=== PATIENT | female | born 1980 | race Caucasian/White ===

== ENCOUNTER 2019-08-13 14:56 | Emergency (ER) | payer SELFPAY ==
[2019-08-13 15:52] LABS: Absolute Lymphocytes (CBC) 1.8 K/uL (0.7-4.9); Basophils % 0.5 % (0-1.3); Hematocrit 37.6 % (36.0-45.0); Lymphocytes % 30.3 % (15.3-44.8); RBC Red Blood Cell Count 4.56 M/uL (3.86-4.86)
[2019-08-13] MEDS ORDERED: AZITHROMYCIN 250 MG TAB ONE (15:52)
[2019-08-13] MEDS ORDERED: CEFTRIAXONE 250 MG/VIAL ONE (15:52)
[2019-08-13] MEDS ORDERED: WATER FOR INJ,STERILE 10 ML ONE (15:53)
[2019-08-13 15:59] LABS: Urine Blood TRACE (NEG); Urine Glucose NEGATIVE (NEG); Urine Protein NEGATIVE (NEG); Urine Specific Gravity >1.030 (1.005-1.030)
[2019-08-13 16:10] LABS: Albumin 4.1 g/dL (3.4-5.0); Bilirubin Total 0.3 mg/dL (0.2-1.0); Potassium 3.9 mmol/L (3.5-5.1); Protein, Total 7.5 g/dL (6.4-8.2)
[2019-08-13 17:07] LABS: Urine Bacteria >50 /HPF (<20); Urine Culture Reflex Order REFLEXED; Urine RBC <5 /HPF (NONE SEEN)
--- NOTE | 2019-08-13 17:20 | EDPHYS ---
Physician Documentation [facility] Name: Krysten Gallegos Age: 38 yrs Sex: Female : 1980 Arrival Date: 08/13/2019 Time: 14:59 Bed 23 Private MD: ED Physician Abisai Champion HPI: 08/13 15:28 This 38 yrs old Female presents to ER via Ambulatory with complaints of ps1 Abdominal Pain. 15:28 patient states that she has a history of PID and previously treated years ago. She was ps1 recently treated for BV 2/2 vaginal discharge from outside clinic with flagyl. Now having suprapubic / right adenexal tenderness. No fever. Pain is intermittent. In [facility] for opioid rehab on naltrexone. Pain is moderate and point tender to palpation and rated as moderate. . 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 - Social history:: Smoking status: Patient uses tobacco products, smokes one-half pack cigarettes per day. - Ebola Screening: : No symptoms or risks identified at this time. ROS: 15:28 Constitutional: Negative for fever, chills, and weight loss, Eyes: Negative for injury, ps1 pain, redness, and discharge, Cardiovascular: Negative for chest pain, palpitations, and edema, Respiratory: Negative for shortness of breath, cough, wheezing, and pleuritic chest pain, Abdomen/GI: Negative for abdominal pain, nausea, vomiting, diarrhea, and constipation, MS/Extremity: Negative for injury and deformity, Skin: Negative for injury, rash, and discoloration. 15:28 : Positive for suprapubic / adnexal pain. Exam: 15:28 Constitutional: This is a well developed, well nourished patient who is awake, alert, ps1 and in no acute distress. Head/Face: Normocephalic, atraumatic. Eyes: Pupils equal round and reactive to light, extra-ocular motions intact. Lids and lashes normal. Conjunctiva and sclera are non-icteric and not injected. Cardiovascular: Regular rate and rhythm. No gallops, murmurs, or rubs. Normal PMI, no JVD. No pulse deficits. Respiratory: Lungs have equal breath sounds bilaterally, clear to auscultation and percussion. No rales, rhonchi or wheezes noted. No increased work of breathing, no retractions or nasal flaring. Skin: Warm, dry with normal turgor. Normal color with no rashes, no lesions, and no evidence of cellulitis. MS/ Extremity: Pulses equal, no cyanosis. Neurovascular intact. Full, normal range of motion. Neuro: Awake and alert, GCS 15, oriented to person, place, time, and situation. Cranial nerves II-XII grossly intact. Sensory grossly intact. 15:28 Abdomen/GI: Inspection: abdomen appears normal, Bowel sounds: normal, Palpation: moderate abdominal tenderness, in the suprapubic area and right lower quadrant. Vital Signs: 15:03 BP 148 / 110; Pulse 101; Resp 16; Temp 98.4; Pulse Ox 100% on R/A; Weight 58.97 kg; la1 Height 5 ft. 1 in. (154.94 cm); 17:26 BP 121 / 85; Pulse 77; Resp 18; Pulse Ox 99% on R/A; aj1 15:03 Body Mass Index 24.56 (58.97 kg, 154.94 cm) la1 MDM: 15:32 Patient medically screened. ps1 17:20 Data reviewed: vital signs, nurses notes, lab test result(s), and as a result, I will ps1 discharge patient. Counseling: I had a detailed discussion with the patient and/or guardian regarding: the historical points, exam findings, and any diagnostic results supporting the discharge/admit diagnosis, lab results, radiology results, the need for outpatient follow up, to return to the emergency department if symptoms worsen or persist or if there are any questions or concerns that arise at home. 08/13 15:27 Order name: Wet Prep; Complete Time: 16:42 ps1 08/13 15:27 Order name: GC (GONORR/CHLAMYDIA) Probe ps1 08/13 15:27 Order name: CBC with Diff; Complete Time: 16:31 ps1 08/13 15:27 Order name: CMP; Complete Time: 16:31 ps1 08/13 15:55 Order name: Urine Dipstick--Ancillary (enter results); Complete Time: 16:31 bd 08/13 15:55 Order name: Urine --Ancillary (enter results); Complete Time: 16:31 bd 08/13 15:27 Order name: Urine Dipstick-Ancillary (obtain specimen); Complete Time: 16:15 ps1 08/13 15:27 Order name: Urine Test (obtain specimen); Complete Time: 16:15 ps1 08/13 16:43 Order name: Urine Microscopic Only; Complete Time: 17:19 ps1 08/13 17:08 Order name: Urine Culture EDW[facility] Administered Medications: 16:11 Drug: Rocephin (cefTRIAXone) 250 mg Route: IM; Site: right gluteus; aj1 16:11 Drug: AZITHromycin 1 grams Route: PO; aj1 Disposition: 08/13/19 17:19 Discharged to Home. Impression: Acute cystitis without hematuria. - Condition is Stable. - Discharge Instructions: Urinary Tract Infection, Adult. - Prescriptions for Keflex 500 mg Oral Capsule - take 1 capsule by ORAL route every 8 hours for 10 days; 30 capsule. Pyridium 200 mg Oral Tablet - take 1 tablet by ORAL route every 8 hours for 3 days; 9 tablet. - Medication Reconciliation Form, Thank You Letter, Antibiotic Education, Prescription Opioid Use form. - Follow up: Private Physician; When: 48 Hours; Reason: Further diagnostic work-up, Recheck today's complaints, Continuance of care, Re-evaluation by your physician. Follow up: Emergency Department; When: As needed; Reason: Worsening of condition. - Problem is new. - Symptoms are unchanged. Signatures: Dispatcher [employer] EDW[facility] Beckie Polk RN RN aj1 Dawood Hairston RN RN la1 Abisai Champion MD MD ps1 Corrections: (The following items were deleted from the chart) 17:32 17:19 08/13/2019 17:19 Discharged to Home. Impression: Acute cystitis without aj1 hematuria. Condition is Stable. Forms are Medication Reconciliation Form, Thank You Letter, Antibiotic Education, Prescription Opioid Use. Follow up: Private Physician; When: 48 Hours; Reason: Further diagnostic work-up, Recheck today's complaints, Continuance of care, Re-evaluation by your physician. Follow up: Emergency Department; When: As needed; Reason: Worsening of condition. Problem is new. Symptoms are unchanged. ps1
--- NOTE | 2019-08-13 17:20 | ER ---
Nurse's Notes [facility] Name: Krysten Gallegos Age: 38 yrs Sex: Female : 1980 Arrival Date: 08/13/2019 Time: 14:59 Bed 23 Private MD: Diagnosis: Acute cystitis without hematuria Presentation: 08/13 15:04 Presenting complaint: Patient states: I feel like I might have a UTI but I took la1 macrobid and flagyl like 2 weeks ago but things are not getting better. Transition of care: patient was not received from another setting of care. Onset of symptoms was August 13, 2019. Risk Assessment: Do you want to hurt yourself or someone else? Patient reports no desire to harm self or others. Initial Sepsis Screen: Does the patient meet any 2 criteria? No. Patient's initial sepsis screen is negative. Does the patient have a suspected source of infection? No. Patient's initial sepsis screen is negative. Care prior to arrival: None. 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 - Social history:: Smoking status: Patient uses tobacco products, smokes one-half pack cigarettes per day. - Ebola Screening: : No symptoms or risks identified at this time. Screenin:20 Abuse screen: Denies threats or abuse. Denies injuries from another. Nutritional aj1 screening: No deficits noted. Tuberculosis screening: No symptoms or risk factors identified. Assessment: 15:20 General: Appears in no apparent distress. uncomfortable, Behavior is calm, cooperative, aj1 appropriate for age. Pain: Complains of pain in suprapubic area. Neuro: Level of Consciousness is awake, alert, obeys commands, Oriented to person, place, time, situation. Cardiovascular: Patient's skin is warm and dry. Respiratory: Airway is patent Respiratory effort is even, unlabored, Respiratory pattern is regular, symmetrical. GI: Abdomen is flat, non-distended, Bowel sounds present X 4 quads. Abd is soft X 4 quads Abdomen is tender to palpation in right lower quadrant and suprapubic area. : Denies burning with urination. EENT: No signs and/or symptoms were reported regarding the EENT system. Derm: No signs and/or symptoms reported regarding the dermatologic system. Skin is pink, warm \T\ dry. normal. Musculoskeletal: No signs and/or symptoms reported regarding the musculoskeletal system. Circulation, motion, and sensation intact. 16:20 Reassessment: Patient appears in no apparent distress at this time. No changes from aj1 previously documented assessment. Patient and/or family updated on plan of care and expected duration. Pain level reassessed. Patient is alert, oriented x 3, equal unlabored respirations, skin warm/dry/pink. 17:17 Reassessment: Patient appears in no apparent distress at this time. No changes from aj1 previously documented assessment. Patient and/or family updated on plan of care and expected duration. Pain level reassessed. Patient is alert, oriented x 3, equal unlabored respirations, skin warm/dry/pink. Vital Signs: 15:03 BP 148 / 110; Pulse 101; Resp 16; Temp 98.4; Pulse Ox 100% on R/A; Weight 58.97 kg; la1 Height 5 ft. 1 in. (154.94 cm); 17:26 BP 121 / 85; Pulse 77; Resp 18; Pulse Ox 99% on R/A; aj1 15:03 Body Mass Index 24.56 (58.97 kg, 154.94 cm) la1 ED Course: 14:59 Patient arrived in ED. mr 15:03 Arm band placed on left wrist. la1 15:04 Abisai Champion MD is Attending Physician. ps1 15:05 Triage completed. la1 15:16 Beckie Polk, KRISTOPHER is Primary Nurse. aj1 15:20 Patient has correct armband on for positive identification. Bed in low position. Call aj1 light in reach. Side rails up X 1. 15:20 No provider procedures requiring assistance completed. aj1 15:47 Urine collected: clean catch specimen, clear. Inserted saline lock: 22 gauge in right tm3 antecubital area, using aseptic technique. 17:31 IV discontinued, intact, bleeding controlled, No redness/swelling at site. Pressure aj1 dressing applied. Administered Medications: 16:11 Drug: Rocephin (cefTRIAXone) 250 mg Route: IM; Site: right gluteus; aj1 16:11 Drug: AZITHromycin 1 grams Route: PO; aj1 Outcome: 17:19 Discharge ordered by . ps1 17:32 Discharged to home ambulatory. aj1 17:32 Condition: good 17:32 Discharge instructions given to patient, Instructed on discharge instructions, follow up and referral plans. medication usage, Demonstrated understanding of instructions, follow-up care, medications, Prescriptions given X 2. 17:32 Patient left the ED. aj1 Signatures: Beckie Polk, RN RN aj1 Duran Urbina Mary mr Dawood Hairston RN RN la1 Abisai Champion MD MD ps1
[2019-08-13 17:51] VITALS: TEMP 98.4
[2019-08-13 17:52] VITALS: BP 121/85; O2SAT 99
== END 2019-08-13 17:32 | disposition home or self-care (01) ==
LOC: ER 14:56
DX: N30.00 Acute cystitis without hematuria (principal); I10 Essential (primary) hypertension; F17.210 Nicotine dependence, cigarettes, uncomplicated; Z88.2 Allergy status to sulfonamides
CPT/HCPCS: 36415; 80053; 81003; 81015; 81025; 85025; 87086; 87088; 87210; 87490; 87590; 96372; 99284; J0696

== ENCOUNTER 2019-12-15 21:01 | Emergency (ER) | payer SELFPAY ==
--- NOTE | 2019-12-15 21:19 | EDPHYS ---
Physician Documentation [facility] Name: Krysten Gallegos Age: 39 yrs Sex: Female : 1980 Arrival Date: 12/15/2019 Time: 21:03 Bed 5 Private MD: ED Physician Matty Dominguez HPI: 12/14 21:15 This 39 yrs old Female presents to ER via Ambulatory with complaints of Arm rn Pain. 21:15 The patient or guardian complains of pain, tingling. The complaints affect the right rn hand, left hand. Onset: The symptoms/episode began/occurred yesterday. Modifying factors: The symptoms are alleviated by nothing. the symptoms are aggravated by nothing. Severity of symptoms: At their worst the symptoms were mild, in the emergency department the symptoms are unchanged. The patient has not experienced similar symptoms in the past. Reports began yesterday with pain to both hands, radiates to forearms, no injury, no rash, does not hurt to touch, no fever. Reports aching in hands especially. 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 Not diabetic. 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 . 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 - Social history:: Smoking status: Patient reports the use of cigarette tobacco products, smokes one-half pack cigarettes per day, Patient/guardian denies using alcohol, street drugs. - Family history:: not pertinent. - Hospitalizations: : No recent hospitalization is reported. ROS: 21:15 Constitutional: Negative for fever, chills, and weight loss, Eyes: Negative for injury, rn pain, redness, and discharge, Neck: Negative for injury, pain, and swelling, Cardiovascular: Negative for chest pain, palpitations, and edema, Respiratory: Negative for shortness of breath, cough, wheezing, and pleuritic chest pain, Abdomen/GI: Negative for abdominal pain, nausea, vomiting, diarrhea, and constipation, MS/Extremity: Negative for injury and deformity, Skin: Negative for injury, rash, and discoloration, Neuro: Negative for headache, weakness, and seizure. Exam: 21:15 Constitutional: This is a well developed, well nourished patient who is awake, alert, rn psychomotor agitation Head/Face: Normocephalic, atraumatic. Cardiovascular: Regular rate and rhythm. No pulse deficits. Skin: Warm, dry with normal turgor. Normal color with no rashes, no lesions, and no evidence of cellulitis. MS/ Extremity: Pulses equal, no cyanosis. Neurovascular intact. Full, normal range of motion. Equal circumference. Neuro: Awake and alert, GCS 15, oriented to person, place, time, and situation. Cranial nerves II-XII grossly intact. Motor strength 5/5 in all extremities. Sensory grossly intact. Cerebellar exam normal. Normal gait. Vital Signs: 21:06 BP 159 / 103; Pulse 71; Resp 18; Temp 98.6; Pulse Ox 95% ; Weight 63.5 kg; Height 5 ft. ll1 4 in. (162.56 cm); Pain 5/10; 21:06 Body Mass Index 24.03 (63.50 kg, 162.56 cm) ll1 MDM: 21:10 Patient medically screened. rn 21:15 Differential diagnosis: carpal tunnel, radiculopathy, peripheral neuropathy. Data rn reviewed: vital signs, nurses notes, and as a result, I will discharge patient. Counseling: I had a detailed discussion with the patient and/or guardian regarding: the historical points, exam findings, and any diagnostic results supporting the discharge/admit diagnosis, the need for outpatient follow up, to return to the emergency department if symptoms worsen or persist or if there are any questions or concerns that arise at home. Special discussion: I discussed with the patient/guardian in detail that at this point there is no indication for admission to the hospital. It is understood, however, that if the symptoms persist or worsen the patient needs to return immediately for re-evaluation. Based on the history and exam findings, there is no indication for further emergent testing or inpatient evaluation. I discussed with the patient/guardian the need to see the primary care provider for further evaluation of the symptoms. Administered Medications: :23 Drug: Decadron 10 mg Route: IM; Site: right deltoid; jd3 21:34 Follow up: Response: No adverse reaction ea : Drug: TORadol - Ketorolac 15 mg Route: IM; Site: left deltoid; jd3 21:34 Follow up: Response: No adverse reaction ea Disposition: 12/15/19 21:19 Discharged to Home. Impression: Peripheral neuropathy. - Condition is Stable. - Discharge Instructions: Peripheral Neuropathy. - Prescriptions for Diclofenac Sodium 75 mg Oral Tablet, Delayed Release (E.C.) - take 1 tablet by ORAL route 2 times per day; 20 tablet. Medrol (Silver) 4 mg Oral Tablets, Dose Pack - take 1 tablet by ORAL route as directed - follow package instructions; 1 packet. - Medication Reconciliation Form, Thank You Letter, Antibiotic Education, Prescription Opioid Use form. - Follow up: Private Physician; When: As needed; Reason: Recheck today's complaints, Re-evaluation by your physician. - Problem is new. - Symptoms have improved. Signatures: Matty Dominguez MD MD rn Antunez, Elena RN Gee Fernandez ea RN KRISTOPHER jd3 Tommie Hernandez RN KRISTOPHER ll1 Corrections: (The following items were deleted from the chart) 21:36 21:19 12/15/2019 21:19 Discharged to Home. Impression: Peripheral neuropathy. Condition ea is Stable. Forms are Medication Reconciliation Form, Thank You Letter, Antibiotic Education, Prescription Opioid Use. Follow up: Private Physician; When: As needed; Reason: Recheck today's complaints, Re-evaluation by your physician. Problem is new. Symptoms have improved. rn
--- NOTE | 2019-12-15 21:19 | ER ---
Nurse's Notes [facility] Name: Krysten Gallegos Age: 39 yrs Sex: Female : 1980 Arrival Date: 12/15/2019 Time: 21:03 Bed 5 Private MD: Diagnosis: Peripheral neuropathy Presentation: 12/14 21:06 Chief complaint: Patient states: Severe right arm/hand pain since yesterday. Both arms ll1 hurt bad now. Hard to activity aide objects. Coronavirus screen: Patient denies fever greater than 100.4F, cough, shortness of breath, or difficulty breathing. Proceed with normal triage process. Ebola Screen: Patient denies travel to an Ebola-affected area in the 21 days before illness onset. Initial Sepsis Screen: Does the patient meet any 2 criteria? No. Patient's initial sepsis screen is negative. Does the patient have a suspected source of infection? No. Patient's initial sepsis screen is negative. Risk Assessment: Do you want to hurt yourself or someone else? Patient reports no desire to harm self or others. 21:06 Method Of Arrival: Ambulatory 1 21:06 Acuity: SAMY 4 ll1 21:15 Onset of symptoms was December 14, 2019. 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 - Social history:: Smoking status: Patient reports the use of cigarette tobacco products, smokes one-half pack cigarettes per day, Patient/guardian denies using alcohol, street drugs. - Family history:: not pertinent. - Hospitalizations: : No recent hospitalization is reported. Screenin:10 Abuse screen: Denies threats or abuse. Nutritional screening: No deficits noted. jd3 Tuberculosis screening: No symptoms or risk factors identified. Fall Risk Ambulatory Aid- None/Bed Rest/Nurse Assist (0 pts). Gait- Normal/Bed Rest/Wheelchair (0 pts) Mental Status- Oriented to own ability (0 pts). Total Quintero Fall Scale indicates No Risk (0-24 pts). Assessment: 21:14 General: Appears in no apparent distress. uncomfortable, Behavior is cooperative, jd3 appropriate for age, anxious, restless. Pain: Complains of pain in right hand, left hand, right arm and left arm Quality of pain is described as aching, shooting, tingling. Neuro: Level of Consciousness is awake, alert, obeys commands, Oriented to person, place, time, situation. Cardiovascular: Denies chest pain, Capillary refill < 3 seconds Patient's skin is warm and dry. Respiratory: Airway is patent Respiratory effort is even, unlabored, Respiratory pattern is regular, symmetrical, Denies cough, shortness of breath. GI: No signs and/or symptoms were reported involving the gastrointestinal system. : No signs and/or symptoms were reported regarding the genitourinary system. EENT: No signs and/or symptoms were reported regarding the EENT system. Derm: Skin is intact, Skin is dry, Skin is normal, Skin temperature is warm. Musculoskeletal: Circulation, motion, and sensation intact. Range of motion: intact in all extremities. 21:34 Reassessment: Patient appears in no apparent distress at this time. Patient and/or jd3 family updated on plan of care and expected duration. Pain level reassessed. Patient is alert, oriented x 3, equal unlabored respirations, skin warm/dry/pink. reported understanding of discharge instructions, even and steady gait upon discharge. Vital Signs: 21:06 BP 159 / 103; Pulse 71; Resp 18; Temp 98.6; Pulse Ox 95% ; Weight 63.5 kg; Height 5 ft. ll1 4 in. (162.56 cm); Pain 5/10; 21:06 Body Mass Index 24.03 (63.50 kg, 162.56 cm) ll1 ED Course: 21:03 Patient arrived in ED. ag3 21:07 Triage completed. ll1 21:08 Arm band placed on Patient placed in an exam room, on a stretcher. ll1 21:09 Gee Agrawal, KRISTOPHER is Primary Nurse. jd3 21:09 Patient has correct armband on for positive identification. Bed in low position. Call jd3 light in reach. Side rails up X 1. Pulse ox on. NIBP on. 21:10 Matty Dominguez MD is Attending Physician. rn 21:33 No provider procedures requiring assistance completed. Patient did not have IV access ea during this emergency room visit. 21:34 No provider procedures requiring assistance completed. Patient did not have IV access jd3 during this emergency room visit. Administered Medications: 21:23 Drug: Decadron 10 mg Route: IM; Site: right deltoid; jd3 21:34 Follow up: Response: No adverse reaction ea 21:23 Drug: TORadol - Ketorolac 15 mg Route: IM; Site: left deltoid; jd3 21:34 Follow up: Response: No adverse reaction ea Outcome: 21:19 Discharge ordered by . rn 21:34 Discharged to home ambulatory. ea 21:34 Condition: stable 21:34 Discharge instructions given to patient, Instructed on discharge instructions, follow up and referral plans. medication usage, Demonstrated understanding of instructions, follow-up care, medications, Prescriptions given X 2. 21:36 Patient left the ED. ea Signatures: Matty Dominguez MD MD rn Antunez, Elena RN RN Gee Agosto RN RN jd3 Radha Orozco Lynsay RN RN ll1
[2019-12-15] MEDS ORDERED: dexAMETHasone 10 MG/ML VIAL ONE (21:23)
[2019-12-15] MEDS ORDERED: KETOROLAC 30 MG/ML INJ ONE (21:23)
== END 2019-12-15 21:36 | disposition home or self-care (01) ==
LOC: ER 21:01
DX: G62.9 Polyneuropathy, unspecified (principal); M79.641 Pain in right hand; I10 Essential (primary) hypertension; F17.210 Nicotine dependence, cigarettes, uncomplicated; Z88.2 Allergy status to sulfonamides
CPT/HCPCS: 96372; 99283; J1100

== ENCOUNTER 2020-06-02 23:11 | Inpatient (IN) | payer SELFPAY ==
[2020-06-02] MEDS ORDERED: FLUORESCEIN SODIUM 1 MG/WRAP ONE ×2 (23:44→23:53)
[2020-06-02] MEDS ORDERED: TETRACAINE HCL 0.5% 4ML OPTH ONE ×2 (23:44→23:53)
[2020-06-03 00:05] LABS: Absolute Lymphocytes (CBC) 1.2 K/uL (0.7-4.9); Basophils % 0.4 % (0-1.3); Hematocrit 36.5 % (36.0-45.0); Lymphocytes % 15.5 % (15.3-44.8); MPV 9.1 fL (7.6-11.3); RBC Red Blood Cell Count 4.55 M/uL (3.86-4.86)
[2020-06-03 00:11] LABS: Protime INR 0.96
--- NOTE | 2020-06-03 00:12 | EDPHYS ---
Physician Documentation [facility] Name: Krysten Gallegos Age: 39 yrs Sex: Female : 1980 Arrival Date: 06/02/2020 Time: 23:12 Bed 19 Private MD: ED Physician Song Liz HPI: 06/02 23:34 This 39 yrs old Female presents to ER via Ambulatory with complaints of Eye jmm Pain. 23:34 The patient is experiencing double vision. Onset: The symptoms/episode began/occurred 3 jmm week(s) ago. Aggravated by nothing. Alleviated by covering eye. This is a 39 year old female with a history of htn that presents to the ED with complaints of right eye visual changes which worsened this morning upon awakening. Patient states she has experienced eye sensitivity for the past 3 weeks but when she awoke this morning she developed double vision which was alleviated by holding the right eye closed. Patient complains of pain to both temples. . 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 - Social history:: Smoking status: Reported history of juuling and/or vaping. Patient/guardian denies using alcohol, street drugs, IV drugs. ROS: 23:34 Constitutional: Negative for fever, chills, and weight loss, Cardiovascular: Negative jmm for chest pain, palpitations, and edema, Respiratory: Negative for shortness of breath, cough, wheezing, and pleuritic chest pain. 23:34 Back: Negative for injury and pain, MS/Extremity: Negative for injury and deformity, Skin: Negative for injury, rash, and discoloration, Neuro: Negative for headache, weakness, numbness, tingling, and seizure, Psych: Negative for depression, anxiety, suicide ideation, homicidal ideation, and hallucinations, Allergy/Immunology: Negative for hives, rash, and allergies. 23:34 Eyes: Positive for double vision. 23:34 Neuro: Positive for visual changes. 23:34 All other systems are negative. Exam: 23:34 Constitutional: This is a well developed, well nourished patient who is awake, alert, jmm and in no acute distress. Head/Face: atraumatic. 23:34 ENT: Moist Mucus Membranes Neck: Trachea midline, Supple Chest/axilla: Normal chest wall appearance and motion. Cardiovascular: Regular rate and rhythm. No edema appreciated Respiratory: Normal respirations, no respiratory distress appreciated Abdomen/GI: Non distended, soft Back: Normal ROM MS/ Extremity: Moves all extremities, no obvious deformities appreciated, no edema noted to the lower extremities 23:34 Eyes: Extraocular movements: intact throughout, Visual chamorro: homonymous hemianopia noted. 23:34 Neuro: Orientation: is normal, Mentation: is normal, Memory: is normal. 23:34 Psych: Behavior/mood is pleasant, cooperative. 23:50 ECG was reviewed by the Attending Physician. [facility] Vital Signs: 23:26 BP 175 / 115; Pulse 105; Resp 18; Pulse Ox 100% on R/A; Weight 58.97 kg; Height 5 ft. 2 mg2 in. (157.48 cm); Pain 0/10; 23:33 Temp 98; mg2 06/03 00:00 BP 126 / 116; Pulse 106; Resp 16; Pulse Ox 100% on R/A; Pain 0/10; vc 00:46 BP 130 / 83; Pulse 98; Resp 16; Pulse Ox 100% ; Pain 0/10; vc 01:25 BP 143 / 89; Pulse 94; Resp 15; Pulse Ox 100% on R/A; Pain 0/10; vc 06/02 23:26 Body Mass Index 23.78 (58.97 kg, 157.48 cm) mg2 Visual Acuity: 06/02 23:46 Left Eye Visual acuity 20/40, ; Right Eye Visual acuity 20/70, ; Both Eyes Visual acuity 20/70; Without Lenses; 23:47 Left Eye Visual acuity 20/40, ; Right Eye Visual acuity 20/70, ; Both Eyes Visual [facility] acuity 20/70; Without Lenses; MDM: 23:32 Patient medically screened. [facility] 06/03 00:10 Data reviewed: vital signs, nurses notes. Counseling: I had a detailed discussion with [facility] the patient and/or guardian regarding: the historical points, exam findings, and any diagnostic results supporting the discharge/admit diagnosis, radiology results, the need for further work-up and treatment in the hospital. ED course: I discussed the patient with Dawood Hairston whom accepted the patient to Dr. Dominguez's service. . 06/02 23:28 Order name: Basic Metabolic Panel; Complete Time: 00:53 [facility] 06/02 23:28 Order name: CBC with Diff; Complete Time: 00:08 [facility] 06/02 23:28 Order name: LFT's; Complete Time: 00:53 [facility] 06/02 23:28 Order name: Magnesium; Complete Time: 00:53 [facility] 06/02 23:28 Order name: NT PRO-BNP; Complete Time: 00:53 [facility] 06/02 23:28 Order name: PT-INR; Complete Time: 00:15 [facility] 06/02 23:28 Order name: Troponin (emerg Dept Use Only); Complete Time: 00:53 [facility] 06/02 23:28 Order name: EKG; Complete Time: 23:29 [facility] 06/02 23:28 Order name: CT Head Brain wo Cont [facility] 06/02 23:29 Order name: ESR; Complete Time: 00:53 [facility] 06/02 23:29 Order name: CRP; Complete Time: 00:53 [facility] 06/02 23:42 Order name: UDS [facility] 06/03 00:18 Order name: COVID-19 [facility] 06/02 23:22 Order name: Visual Acuity; Complete Time: 23:47 [facility] 06/02 23:22 Order name: Eye Tray; Complete Time: 00:09 [facility] 06/02 23:22 Order name: Fluoresene Opth strip; Complete Time: 00:09 [facility] 06/02 23:28 Order name: Cardiac monitoring; Complete Time: 00:09 [facility] 06/02 23:28 Order name: EKG - Nurse/Tech; Complete Time: 23:47 [facility] 06/02 23:28 Order name: IV Saline Lock; Complete Time: 23:47 [facility] 06/02 23:28 Order name: Labs collected and sent; Complete Time: 23:47 [facility] 06/02 23:28 Order name: O2 Per Protocol; Complete Time: 23:47 [facility] 06/02 23:28 Order name: O2 Sat Monitoring; Complete Time: 23:47 jmm EC/15 23:50 Rate is 102 beats/min. Rhythm is regular. QRS [place] is Normal. [place] interval is normal. jmm QRS interval is normal. QT interval is normal. No Q waves. T waves are Normal. No ST changes noted. Reviewed by me. Administered Medications: 23:47 Drug: Tetracaine Drops 0.5 % 1 drops Route: Ophthalmic; Site: right eye; vc Disposition: 06/03 02:15 Co-signature as Attending Physician, Song Liz MD. [email or web address] Disposition: 06/03/20 00:12 Hospitalization ordered by Suhail Dominguez for Observation. Preliminary diagnosis is Diplopia. - Bed requested for Telemetry/MedSurg (observation). - Status is Observation. vc - Condition is Stable. - Problem is new. - Symptoms are unchanged. Signatures: Dispatcher [employer] EDMS Charlotte Romero RN RN mw Mickail, Joel, PA PA [facility] Dawood Hairston, JERAD-C SALES HOST-Cla1 Jaguar Mattson RN RN mg2 Renetta Reyes RN RN vc Song Liz MD MD [email or web address] Corrections: (The following items were deleted from the chart) 00:16 00:10 ED course: I discussed the patient with Dawood Hairston whom accepted the patient to [facility] Dr. Farmer service. . [facility] 00:16 00:12 Hospitalization Ordered by Teddy Farmer DO for Observation. Preliminary [facility] diagnosis is Diplopia. Bed requested for Telemetry/MedSurg (observation). Status is Observation. Condition is Stable. Problem is new. Symptoms are unchanged. [facility] 01:14 00:16 06/03/2020 00:12 Hospitalization Ordered by Suhail Dominguez MD for Observation. Preliminary diagnosis is Diplopia. Bed requested for Telemetry/MedSurg (observation). Status is Observation. Condition is Stable. Problem is new. Symptoms are unchanged. [facility] 02:01 01:14 06/03/2020 00:12 Hospitalization Ordered by Suhail Dominguez MD for Observation. Preliminary diagnosis is Diplopia. Bed requested for Telemetry/MedSurg (observation). Status is Observation. Condition is Stable. Problem is new. Symptoms are unchanged.
--- NOTE | 2020-06-03 00:12 | ER ---
Nurse's Notes [facility] Name: Krysten Gallegos Age: 39 yrs Sex: Female : 1980 Arrival Date: 06/02/2020 Time: 23:12 Bed 19 Private MD: Diagnosis: Diplopia Presentation: 06/02 23:22 Chief complaint: Patient states: i was seen by my eye doctor today because elana been mg2 having double vision for the last 2 weeks and said it's just nerve related. denies pain now. Coronavirus screen: At this time, the client does not indicate any symptoms associated with coronavirus-19. Ebola Screen: No symptoms or risks identified at this time. Mechanism of Injury: No Mechanism of Injury. The patient denies any loss of vision. Initial Sepsis Screen: Does the patient meet any 2 criteria? No. Patient's initial sepsis screen is negative. Does the patient have a suspected source of infection? No. Patient's initial sepsis screen is negative. Risk Assessment: Do you want to hurt yourself or someone else? Patient reports no desire to harm self or others. Onset of symptoms was May 2020. 23:22 Method Of Arrival: Ambulatory mg2 23:26 Acuity: SAMY 2 mg2 Triage Assessment: 23:27 General: Appears in no apparent distress. comfortable, Behavior is calm, cooperative. mg2 Pain: Denies pain. EENT: Reports double vision in the right eye. Neuro: Level of Consciousness is awake, alert, obeys commands, Oriented to person, place, time, situation. Cardiovascular: Capillary refill < 3 seconds Patient's skin is warm and dry. Respiratory: Airway is patent Respiratory effort is even, unlabored, Respiratory pattern is regular, symmetrical. GI: No signs and/or symptoms were reported involving the gastrointestinal system. : No signs and/or symptoms were reported regarding the genitourinary system. Derm: Skin is intact, is healthy with good turgor, Skin is pink, warm \T\ dry. normal. Musculoskeletal: Circulation, motion, and sensation intact. Capillary refill < 3 seconds. 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 - Social history:: Smoking status: Reported history of juuling and/or vaping. Patient/guardian denies using alcohol, street drugs, IV drugs. Screenin:15 VAN Screening: Arm Drift: Patient shows no arm weakness. Patient is VAN negative. vc Visual Disturbance: Patient reports double vision. Provider notified of +VAN scoring. 23:28 Abuse screen: Denies threats or abuse. Denies injuries from another. Nutritional mg2 screening: No deficits noted. Tuberculosis screening: No symptoms or risk factors identified. Fall Risk IV access (20 points). Assessment: 23:28 General: see triage assessment. mg2 06/03 00:10 Reassessment:. General: Appears in no apparent distress. uncomfortable, Behavior is vc cooperative, anxious. Pain: Denies pain. Neuro: Level of Consciousness is awake, alert, obeys commands, Oriented to person, place, time, situation, Appropriate for age. Neuro: Reports diplopia, photophobia. Cardiovascular: Capillary refill < 3 seconds Patient's skin is warm and dry. Respiratory: Airway is patent Respiratory effort is even, unlabored, Respiratory pattern is regular, symmetrical. GI: Abdomen is non-distended. EENT: Eyes are tearing on right inner canthus Sclera/Cornea are clear in outer aspect of conjuctiva of right eye and inner aspect of conjuctiva of right eye. EENT: Reports blurred vision photophobia walking into things the last couple of weeks.. Derm: Wound noted Other: wounds in various stages of healing noted to face, cindy arms, cindy legs, and abdomen. Musculoskeletal: Circulation, motion, and sensation intact. Range of motion: intact in all extremities. 00:55 Reassessment: Patient and/or family updated on plan of care and expected duration. Pain vc level reassessed. Patient is alert, oriented x 3, equal unlabored respirations, skin warm/dry/pink. Patient states symptoms have not improved. Vital Signs: 06/02 23:26 BP 175 / 115; Pulse 105; Resp 18; Pulse Ox 100% on R/A; Weight 58.97 kg; Height 5 ft. 2 mg2 in. (157.48 cm); Pain 0/10; 23:33 Temp 98; mg2 06/03 00:00 BP 126 / 116; Pulse 106; Resp 16; Pulse Ox 100% on R/A; Pain 0/10; vc 00:46 BP 130 / 83; Pulse 98; Resp 16; Pulse Ox 100% ; Pain 0/10; vc 01:25 BP 143 / 89; Pulse 94; Resp 15; Pulse Ox 100% on R/A; Pain 0/10; vc 06/02 23:26 Body Mass Index 23.78 (58.97 kg, 157.48 cm) mg2 Visual Acuity: 06/02 23:46 Left Eye Visual acuity 20/40, ; Right Eye Visual acuity 20/70, ; Both Eyes Visual vc acuity 20/70; Without Lenses; 23:47 Left Eye Visual acuity 20/40, ; Right Eye Visual acuity 20/70, ; Both Eyes Visual [facility] acuity 20/70; Without Lenses; ED Course: 23:12 Patient arrived in ED. cl3 23:18 Renetta Reyes RN is Primary Nurse. vc 23:22 Shayan Elaine PA is PHCP. jmm 23:22 Song Liz MD is Attending Physician. jmm 23:26 Arm band placed on. mg2 23:27 Triage completed. mg2 23:28 Patient has correct armband on for positive identification. mg2 23:28 No provider procedures requiring assistance completed. mg2 23:30 monitoring manager on. Pulse ox on. NIBP on. vc 23:35 Inserted saline lock: 20 gauge in right antecubital area, using aseptic technique. vc Blood collected. 23:50 CT Head Brain wo Cont In Process Unspecified. EDMS 06/03 00:11 Teddy Farmer DO is Hospitalizing Provider. jmm 00:16 Suhail Dominguez MD is Hospitalizing Provider. jmm 01:39 Patient admitted, IV remains in place. vc Administered Medications: 06/02 23:47 Drug: Tetracaine Drops 0.5 % 1 drops Route: Ophthalmic; Site: right eye; vc Outcome: 06/03 00:12 Decision to Hospitalize by Provider. jmm 01:39 Admitted to Med/surg accompanied by tech, via wheelchair, room 221, with chart, Report vc called to KRISTOPHER Grover 01:39 Condition: good 01:39 Instructed on the need for admit. 02:01 Patient left the ED. vc Signatures: Dispatcher [employer] EDMS Mickail, YULIYA Downey Michele, RN RN mg2 Ariela Hernandez cl3 Renetta Reyes RN RN vc Corrections: (The following items were deleted from the chart) 06/02 23:27 23:26 Acuity: SAMY 3 mg2 mg2
[2020-06-03 00:40] LABS: ALT/SGPT 17 U/L (12-78); AST/SGOT 13 U/L (15-37); Albumin 3.7 g/dL (3.4-5.0); Alkaline Phosphatase 111 U/L (45-117); BUN Blood Urea Nitrogen 12 mg/dL (7-18); Bicarbonate 27 mmol/L (21-32); Bilirubin Direct 0.1 mg/dL (0-0.2); Bilirubin Total 0.5 mg/dL (0.2-1.0); Glucose Level 88 mg/dL (74-106); Magnesium 1.9 mg/dL (1.8-2.4); NT PRO-BNP 49 pg/mL (<125); Potassium 3.8 mmol/L (3.5-5.1); Protein, Total 7.8 g/dL (6.4-8.2); Sodium Level 138 mmol/L (136-145); Troponin (Emerg Dept Use Only) < 0.02 ng/mL (0.0-0.045)
--- NOTE | 2020-06-03 01:02 | P.HP ---
Certification for Inpatient Patient admitted to: Inpatient With expected LOS: <2 Midnights Patient will require the following post-hospital care: None Practitioner: I am a practitioner with admitting privileges, knowledge of patient current condition, hospital course, and medical plan of care. Services: Services provided to patient in accordance with Admission requirements found in Title 42 Section 412.3 of the Code of Federal Regulations <Dawood Hairston - Last Filed: 06/03/20 00:57> Patient History Date of Service: 06/03/20 Primary Care Provider: Madhu brandt Reason for admission: Hypertensive emergency History of Present Illness: 39-year-old female with history of hypertension and heroin abuse presents emergency department for visual disturbances. Patient reports that over the course of the last 2 weeks she has had intermittent difficulties with vision quitting sometimes seeing double vision. Today patient reports she woke up this morning and noticed that she was having double vision, primarily affecting her right eye. 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 Initially patient's blood pressure was 175/115. Patient was evaluated in the emergency department with noncontrast CT of the head and cardiac workup which were unremarkable. During physical exam patient was noted to have homonymous hemianopia with loss of left visual chamorro in both eyes. Patient reports that this began this morning when she woke up as far she can tell. ED provider wishes to admit patient for further evaluation and management. When I saw the patient in the emergency department she was awake, alert, oriented x4. Patient was covering her right eye to read a book and she states this helped with the diplopia. Patient denies any other medical history aside from hypertension which she has to take HCTZ for but she discontinued on her own. Patient also reports that she used to abuse heroin but has not used in the past 8 months. Patient will be admitted for further evaluation and management. - Past Medical/Surgical History Diabetic: No -: Hypertension -: Heroin abuse -: none Psychosocial/ Personal History: Patient lives with her and is currently unemployed - Family History Family History: Reviewed- Non-Contributory - Social History Smoking Status: Current every day smoker Alcohol use: Yes CD- Drugs: Yes Caffeine use: Yes Place of Residence: Home <Dawood Hairston - Last Filed: 06/03/20 00:57> Date of Service: 06/03/20 <Suhail Dominguez - Last Filed: 06/03/20 18:54> Review of Systems 10-point ROS is otherwise unremarkable Eyes: Vision Change, As per HPI <Dawood Hairston - Last Filed: 06/03/20 00:57> Physical Examination - Physical Exam General: Alert, In no apparent distress, Oriented x3 HEENT: Atraumatic, Normocephalic, PERRLA, Mucous membr. moist/pink, EOMI Neck: Supple, 2+ carotid pulse no bruit Respiratory: Clear to auscultation bilaterally, Normal air movement Cardiovascular: No edema, Regular rate/rhythm, Normal S1 S2 Capillary refill: <2 Seconds Gastrointestinal: Normal bowel sounds Musculoskeletal: No swelling, No contractures, No erythema Integumentary: No significant lesion, No tenderness/swelling, No erythema Neurological: Normal speech, Normal strength at 5/5 x4 extr, Normal tone, Sensation intact, Normal affect Lymphatics: No axilla or inguinal lymphadenopathy - Studies Laboratory Data (last 24 hrs) 06/02/20 23:38: PT 11.3, INR 0.96 06/02/20 23:38: WBC 8.0, Hgb 12.0, Hct 36.5, Plt Count 177 06/02/20 23:38: Sodium 138, Potassium 3.8, BUN 12, Creatinine 0.77, Glucose 88, Magnesium 1.9, Total Bilirubin 0.5, AST 13 L, ALT 17, Alkaline Phosphatase 111 <Dawood Hairston - Last Filed: 06/03/20 00:57> - Studies Laboratory Data (last 24 hrs) 06/02/20 23:38: PT 11.3, INR 0.96 06/02/20 23:38: WBC 8.0, Hgb 12.0, Hct 36.5, Plt Count 177 06/02/20 23:38: Sodium 138, Potassium 3.8, BUN 12, Creatinine 0.77, Glucose 88, Magnesium 1.9, Total Bilirubin 0.5, AST 13 L, ALT 17, Alkaline Phosphatase 111 <Suhail Dominguez - Last Filed: 06/03/20 18:54> Assessment and Plan - Plan Assessment Hypertensive emergency Homonymous hemianopia and diplopia Plan Hypertensive emergency: Blood pressure has come down nicely in the emergency department. Will attempt to decreased blood pressure gradually. Will continue to monitor patient's blood pressure closely and monitor patient on telemetry. Will start patient on metoprolol b.i.d. with parameters. Will obtain thyroid panel with morning labs as well as echocardiogram. DVT prophylaxis with Lovenox 40 mg subcutaneous once daily. Homonymous hemianopia and diplopia: Neurology has been consulted, will obtain MRI stroke protocol in the morning. Continue with daily aspirin and folic acid at this time. Appreciate further input from neurology. Discharge Plan: Home Plan to discharge in: 48 Hours - Advance Directives Does patient have a Living Will: No Does patient have a Durable POA for Healthcare: No - Code Status/Comfort Care Code Status Assessed: Yes (Patient is full code) Critical Care: No Time Spent Managing Pts Care (In Minutes): 55 <Dawood Hairston - Last Filed: 06/03/20 00:57> Physician Review Additional Text: Plan of care discussed with Dawood Hairston, and I agree with the management plan as noted above. <Suhail Dominguez - Last Filed: 06/03/20 18:54>
[2020-06-03] MEDS ORDERED: ACETAMINOPHEN 500 MG TAB PO PRN (01:44)
[2020-06-03] MEDS ORDERED: ONDANSETRON 4 MG/2 ML VIAL IV PRN (01:44)
[2020-06-03 02:14] VITALS: O2SAT 100
[2020-06-03 02:40] VITALS: BMI 26.9
[2020-06-03] MEDS: METOPROLOL TAR 25 MG TAB PO SCH ×2 (05:36→17:53)
--- NOTE | 2020-06-03 05:50 | EKG ---
Test Date: 2020-06-02 Test Time: 23:48:02 [employer]: JHON MEASUREMENT RESULTS: Intervals: Rate: 102 [place]: 158 QRSD: 82 QT: 344 QTc: 448 [place]: P: 31 [place]: 158 QRS: 9 T: 12 INTERPRETIVE STATEMENTS: Sinus tachycardia Otherwise normal ECG No previous ECG available for comparison Electronically Signed On 06-03-20 05:49:59 CDT by Terry Givens
[2020-06-03 07:52] LABS: Barbiturates NEGATIVE (NEGATIVE); Benzodiazepines NEGATIVE (NEGATIVE); Cocaine NEGATIVE (NEGATIVE); METHAMPHETAM NEGATIVE (NEGATIVE); Methadone NEGATIVE (NEGATIVE); Opiates NEGATIVE (NEGATIVE); Phencyclidine NEGATIVE (NEGATIVE); THC Cannibis NEGATIVE (NEGATIVE)
[2020-06-03] MEDS ORDERED: ENOXAPARIN 40 MG/0.4 ML SQ SCH (09:00)
[2020-06-03] MEDS ORDERED: ASPIRIN EC 81 MG TAB PO SCH (09:00)
[2020-06-03] MEDS ORDERED: FOLIC ACID 1 MG TABLET PO SCH (09:00)
[2020-06-03] MEDS ORDERED: POTASSIUM CL SA 10 MEQ TAB PO ONE (09:00)
--- NOTE | 2020-06-03 14:31 | ECHO ---
HEIGHT: 5 ft 2 in WEIGHT: 147 lb 0 oz DATE OF STUDY: 06/03/[address]: Dawood Hairston NP 2-DIMENSIONAL: YES M.MODE: YES DOPPLER: YES COLOR FLOW: YES TDS: NO PORTABLE: NO DEFINITY: NO BUBBLE STUDY: NO DIAGNOSIS: HYPERTENSION EMERGENCY CARDIAC HISTORY: CATHERIZATION: NO SURGERY: NO PROSTHETIC VALVE: NO PACEMAKER: NO MEASUREMENTS (cm) DIASTOLIC (NORMALS) SYSTOLIC (NORMALS) IVSd 0.9 (0.6-1.2) LA Diam 2.8 (1.9-4.0) LVEF 68% LVIDd 4.6 (3.5-5.7) LVIDs 2.9 (2.0-3.5) %FS 38% LVPWd 1.0 (0.6-1.2) Ao Diam 3.3 (2.0-3.7) 2 DIMENSIONAL ASSESSMENT: RIGHT ATRIUM: NORMAL LEFT ATRIUM: NORMAL RIGHT VENTRICLE: NORMAL LEFT VENTRICLE: NORMAL TRICUSPID VALVE: NORMAL MITRAL VALVE: NORMAL PULMONIC VALVE: NORMAL AORTIC VALVE: NORMAL PERICARDIAL EFFUSION: NONE AORTIC ROOT: NORMAL LEFT VENTRICULAR WALL MOTION: NORMAL. DOPPLER/COLOR FLOW: NORMAL. COMMENTS: NORMAL 2D ECHO WITH DOPPLER. NO WALL MOTION ABNORMALITY. NO EFFUSION. TECHNOLOGIST: SONAL KIRK
--- NOTE | 2020-06-03 14:32 | RAD REPORT ---
EXAM DESCRIPTION: Head Brain Wo Cont CLINICAL HISTORY: 39 years Female diplopia, blurred vision COMPARISON: None TECHNIQUE: Contiguous axial images of the brain were obtained without the administration of intraven ous contrast.This exam was performed according to our departmental dose-optimization program which in cludes use of Automated Exposure Control, adjustment of the mA and/or kV according to patient size an d/or use of iterative reconstruction technique. DLP: 889 mGy*cm FINDINGS: Brain: No acute intracranial hemorrhage. No extra-axial collection. No mass effect or ruma iation. Ventricles: Within normal limits in size. Globes and orbits: No acute abnormality. Bones: No acute osseous finding Paranasal sinuses: Chronic right maxillary sinus disease. Frontal sinuses are hypoplastic. Mastoid air cells: Well pneumatized. Soft tissues: Within normal limits IMPRESSION: No acute intracranial abnormality. Chronic right maxillary sinus disease. Electronically signed by: David Tam DO 06/03/2020 12:06 AM CDT Due to temporary technical issues with the PACS/Fluency reporting system, reports are being signed by the in house radiologist without review as a courtesy to ensure prompt reporting. The interpreting r adiologist is fully responsible for the content of the report.
[2020-06-03 16:08] VITALS: BP 134/86; TEMP 97.9
--- NOTE | 2020-06-03 17:35 | RAD REPORT ---
EXAM DESCRIPTION: MRI - Brain W/Wo Cont - 06/03/2020 5:22 pm CLINICAL HISTORY: Double vision COMPARISON: June 02, [address] TECHNIQUE: Axial, sagittal, and coronal magnetic images of the brain were obtained. Fourteen cc Mult iHance administered intravenously FINDINGS: Mild to moderate signal within periventricular, deep and subcortical white matter probably ischemic changes secondary to small vessel disease The ventricles are normal in caliber. Diffusion-weighted/ ADC mapping sequences do not demonstrate evidence of an acute infarction. No abnormal enhancement within the brain is seen. An extra-axial fluid collection is not noted. Right maxillary sinus is opacified compatible with chronic sinusitis IMPRESSION: No acute abnormality displayed
--- NOTE | 2020-06-03 17:41 | RAD REPORT ---
EXAM DESCRIPTION: MRI - MRA Head Wo Cont - 06/03/2020 5:08 pm CLINICAL HISTORY: Double vision COMPARISON: None. TECHNIQUE: Magnetic resonance angiogram was performed. 3D MIPS reconstruction performed FINDINGS: The anterior cerebral, middle cerebral, posterior cerebral, distal internal carotid and ba silar arteries do not demonstrate a significant stenosis. The basilar tip is bulbous measuring 4 x 3 millimeters IMPRESSION: Multi is basilar tip measuring 4 x 3 millimeters
--- NOTE | 2020-06-03 17:50 | RAD REPORT ---
EXAM DESCRIPTION: MRI - MRA Neck W/Wo Cont - 06/03/2020 5:23 pm CLINICAL HISTORY: Double vision COMPARISON: None. TECHNIQUE: Magnetic resonance angiogram of the neck was performed. 19 cc MultiHance was administered intravenously. 3D MIPS reconstruction performed FINDINGS: The common carotid, internal carotid and external carotid arteries do not demonstrate a si gnificant stenosis. An aneurysm is not seen. The right vertebral artery is dominant. No abnormality of the vertebral arteries demonstrated IMPRESSION: Unremarkable MRA neck NASCET criteria used. Mild 0-49% stenosis Moderate 50-69% stenosis Severe 70-99% stenosis
== END 2020-06-03 19:55 | disposition home or self-care (01) | DRG 305 ==
LOC: ER 23:11 → ERHOLD 06-03 01:02 → 2ND 06-03 01:37
PROVIDERS: ADMIT Hospitalist; ATTEND Hospitalist
DX: I16.1 Hypertensive emergency (principal); H53.2 Diplopia; I10 Essential (primary) hypertension; F17.200 Nicotine dependence, unspecified, uncomplicated; H53.462 Homonymous bilateral field defects, left side; Z88.1 Allergy status to other antibiotic agents; Z79.899 Other long term (current) drug therapy
CPT/HCPCS: 36415; 70450; 70544; 70549; 70553; 80048; 80076; 80307; 83735; 83880; 84484; 85025; 85610; 85652; 86140; 93005; 93306; 97110; 97112; 97161; 99285; A9577; J1650; U0002

== ENCOUNTER 2020-06-09 16:56 | Emergency (ER) | payer SELFPAY ==
[2020-06-09 18:09] LABS: Absolute Lymphocytes (CBC) 2.6 K/uL (0.7-4.9); Basophils % 0.6 % (0-1.3); Hematocrit 34.2 % (36.0-45.0); Lymphocytes % 37.3 % (15.3-44.8); MPV 8.4 fL (7.6-11.3); RBC Red Blood Cell Count 4.23 M/uL (3.86-4.86)
[2020-06-09 18:34] LABS: Protime INR 0.98
[2020-06-09 18:45] LABS: BUN Blood Urea Nitrogen 15 mg/dL (7-18); Bicarbonate 30 mmol/L (21-32); Glucose Level 94 mg/dL (74-106); Potassium 3.7 mmol/L (3.5-5.1); Sodium Level 141 mmol/L (136-145)
--- NOTE | 2020-06-09 18:55 | RAD REPORT ---
EXAM DESCRIPTION: CT - Head Brain Wo Cont - 06/09/2020 6:38 pm CLINICAL HISTORY: diplopia, sent for aneurysm eval Headache, drowsiness COMPARISON: Head angio dated 06/09/2020; Head Brain Wo Cont dated 06/02/2020; MRA Head Wo Cont dated ; Brain W/Wo Cont dated 06/03/2020; MRA Neck W/Wo Cont dated 06/03/2020 TECHNIQUE: All CT scans are performed using dose optimization technique as appropriate and may inclu de automated exposure control or mA/KV adjustment according to patient size. FINDINGS: No intracranial hemorrhage, hydrocephalus or extra-axial fluid collection.No areas of brai n edema or evidence of midline shift. Chronic right maxillary sinusitis. The paranasal sinuses and mastoids are otherwise clear. The calvar ium is intact. IMPRESSION: No acute intracranial abnormality.
--- NOTE | 2020-06-09 18:58 | RAD REPORT ---
EXAM DESCRIPTION: CT - Head angio - 06/09/2020 6:39 pm CLINICAL HISTORY: diplopia, sent for aneurysm eval COMPARISON: Head Brain Wo Cont dated 06/02/2020; Brain W/Wo Cont dated 06/03/2020; MRA Head Wo Cont da benny 06/03/2020 TECHNIQUE: CT angiography of the head was performed with MIPs. All CT scans are performed using dose optimization technique as appropriate and may include automated exposure control or mA/KV adjustment according to patient size. FINDINGS: 4 mm fullness in the basilar tip region is again seen suggestive of a small aneurysm. No f low-limiting stenosis or vascular malformation identified. Antegrade flow seen in both vertebral arteries. The right vertebral artery is dominant. The visualized dural venous sinuses are patent. IMPRESSION: 4 mm area of fullness in the basilar tip region is unchanged since 06/03/2020 MRA study. Elsewhere, no significant flow abnormality of the [place] is identified.
--- NOTE | 2020-06-09 19:07 | ER ---
Nurse's Notes [facility] Name: Krysten Gallegos Age: 39 yrs Sex: Female : 1980 Arrival Date: 06/09/2020 Time: 16:56 Bed 16 Private MD: Diagnosis: Diplopia;Headache Presentation: 06/09 17:21 Chief complaint: Patient states: double vision since last night, called Dr. Roach em told to come to the ER, hx of aneurysm and wanted to make sure it isn't bigger, denies N/V or headache. Coronavirus screen: Client denies travel out of the [place] in the last 14 days. Ebola Screen: Patient negative for fever greater than or equal to 101.5 degrees Fahrenheit, and additional compatible Ebola Virus Disease symptoms Patient denies exposure to infectious person. Patient denies travel to an Ebola-affected area in the 21 days before illness onset. No symptoms or risks identified at this time. Initial Sepsis Screen: Does the patient meet any 2 criteria? No. Patient's initial sepsis screen is negative. Does the patient have a suspected source of infection? No. Patient's initial sepsis screen is negative. Risk Assessment: Do you want to hurt yourself or someone else? Patient reports no desire to harm self or others. Onset of symptoms was June 08, 2020. 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 - Social history:: Smoking status: Reported history of juuling and/or vaping. - Family history:: not pertinent. - Hospitalizations: : The patient was recently seen at [facility]. Screenin:40 Abuse screen: Denies threats or abuse. Denies injuries from another. Nutritional hb screening: No deficits noted. Tuberculosis screening: No symptoms or risk factors identified. Fall Risk None identified. Vital Signs: 17:21 BP 127 / 92; Pulse 83; Resp 18; Temp 98.2; Pulse Ox 99% on R/A; Weight 63.5 kg; Height em 5 ft. 2 in. (157.48 cm); Pain 0/10; 17:21 Body Mass Index 25.61 (63.50 kg, 157.48 cm) ED Course: 16:56 Patient arrived in ED. ag5 17:13 Triage completed. em 17:25 Arm band placed on. em 17:30 Matty Dominguez MD is Attending Physician. rn 17:31 Tommie Hernandez, RN is Primary Nurse. ll1 18:32 Patient has correct armband on for positive identification. Placed in gown. Bed in low hb position. Call light in reach. Side rails up X 1. 18:38 CT Head Brain wo Cont In Process Unspecified. EDMS 18:39 CT Head Angio In Process Unspecified. EDMS 19:05 Connor Roach MD is Referral Physician. rn 19:20 No provider procedures requiring assistance completed. IV discontinued, intact, hb bleeding controlled, No redness/swelling at site. Administered Medications: No medications were administered Outcome: 19:06 Discharge ordered by MD. rn 19:20 Discharged to home ambulatory. hb 19:20 Condition: stable 19:20 Discharge instructions given to patient, Instructed on discharge instructions, follow up and referral plans. medication usage, Demonstrated understanding of instructions, follow-up care, medications. 19:22 Patient left the ED. hb Signatures: Dispatcher [employer] Max Higgins RN KRISTOPHER Matty Dominguez MD MD rn Baxter, Heather, RN RN Zari Tipton ag5 Tommie Hernandez, RN RN ll1 Corrections: (The following items were deleted from the chart) 17:15 17:11 Chief complaint: Patient states: had a kidney transplant 1 week ago at [facility], reports generalized fatigue and N/V denies diarrhea, low grade temp. em 17:15 17:11 Coronavirus screen: Client denies travel out of the [place] in the last 14 days[facility] 17:15 17:11 Ebola Screen: Patient negative for fever greater than or equal to 101.5 degrees em Fahrenheit, and additional compatible Ebola Virus Disease symptoms Patient denies exposure to infectious person. Patient denies travel to an Ebola-affected area in the 21 days before illness onset. No symptoms or risks identified at this time. em 17:15 17:11 Initial Sepsis Screen: Does the patient meet any 2 criteria? No. Patient's em initial sepsis screen is negative. Does the patient have a suspected source of infection? No. Patient's initial sepsis screen is negative. em 17:11 Risk Assessment: Do you want to hurt yourself or someone else? Patient reports no em desire to harm self or others. em 17:11 Onset of symptoms was June 09, 2020 em em 17:11 Method Of Arrival: Wheelchair em em 17:11 BP 116 / 70; Pulse 83bpm; Resp 18bpm; Pulse Ox 99% RA; Temp 100.9F Oral; 90.72 em kg; Height 5 ft. 7 in.; BMI: 31.3; Pain 10/10; em 17:11 Acuity: SAMY 3 em em
--- NOTE | 2020-06-09 19:07 | EDPHYS ---
Physician Documentation [facility] Name: Krysten Gallegos Age: 39 yrs Sex: Female : 1980 Arrival Date: 06/09/2020 Time: 16:56 Bed 16 Private MD: ED Physician Matty Dominguez HPI: 06/09 18:39 This 39 yrs old Female presents to ER via Ambulatory with complaints of rn Blurred Vision, double vision, headache. 18:39 Onset: The symptoms/episode began/occurred 1 week(s) ago. Duration: the symptoms are rn episodic. Aggravated by nothing. Alleviated by covering eye. Severity of symptoms: At their worst the symptoms were moderate in the emergency department the symptoms are unchanged. The patient has experienced similar episodes in the past. Reports admitted here 1 week ago for double vision, told had "aneurysm" and told to f/u with Dr. Burrows. Reports intermittent symptoms, never went away totally, woke up yesterday with worse headache and double vision again, called Dr. Burrows's office, told to come in for eval, didn't come in until today. No trauma/fever/vomiting/AMS.. 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 - Social history:: Smoking status: Reported history of juuling and/or vaping. - Family history:: not pertinent. - Hospitalizations: : The patient was recently seen at [facility]. ROS: 18:39 Constitutional: Negative for fever, chills, and weight loss, Eyes: + double vision rn pediatric icu: Negative for chest pain, palpitations, and edema, Respiratory: Negative for shortness of breath, cough, wheezing, and pleuritic chest pain, Abdomen/GI: Negative for abdominal pain, nausea, vomiting, diarrhea, and constipation, MS/Extremity: Negative for injury and deformity, Skin: Negative for injury, rash, and discoloration, Neuro: + headache, negative for weakness/numbness Exam: 18:39 Constitutional: This is a well developed, well nourished patient who is awake, alert, rn and in no acute distress. Sitting upright shielding eyes from light. Head/Face: Normocephalic, atraumatic. Eyes: Pupils equal round and reactive to light, extra-ocular motions intact. No nystagmus. Neck: No cervical lymphadenopathy. Supple, full range of motion without nuchal rigidity, or vertebral point tenderness. No Meningismus. Neuro: Awake and alert, GCS 15, oriented to person, place, time, and situation. Cranial nerves II-XII grossly intact. Motor strength 5/5 in all extremities. Sensory grossly intact. Cerebellar exam normal. Vital Signs: 17:21 BP 127 / 92; Pulse 83; Resp 18; Temp 98.2; Pulse Ox 99% on R/A; Weight 63.5 kg; Height em 5 ft. 2 in. (157.48 cm); Pain 0/10; 17:21 Body Mass Index 25.61 (63.50 kg, 157.48 cm) em MDM: 17:31 Patient medically screened. rn 19:01 Differential diagnosis: headache, complicated headache migraine. Data reviewed: vital rn signs, nurses notes, radiologic studies, CT scan, and as a result, I will discharge patient. Counseling: I had a detailed discussion with the patient and/or guardian regarding: the historical points, exam findings, and any diagnostic results supporting the discharge/admit diagnosis, radiology results, the need for outpatient follow up, to return to the emergency department if symptoms worsen or persist or if there are any questions or concerns that arise at home. Special discussion: I discussed with the patient/guardian in detail that at this point there is no indication for admission to the hospital. It is understood, however, that if the symptoms persist or worsen the patient needs to return immediately for re-evaluation. Based on the history and exam findings, there is no indication for further emergent testing or inpatient evaluation. I discussed with the patient/guardian the need to see the neurologist for further evaluation of the symptoms. ED course: NO gross changes on ct head or angio. Persistent diplopia, possible migraine vs complicated migraine, has f/u scheduled with Dr. burrows, has been evaluated by ophtho. . 06/09 17:43 Order name: CBC with Diff; Complete Time: 18:39 rn 06/09 17:43 Order name: Basic Metabolic Panel; Complete Time: 19:01 rn 06/09 17:43 Order name: CT Head Brain wo Cont; Complete Time: 19: rn 06/09 17:43 Order name: CT Head Angio; Complete Time: 19:07 rn 06/09 17:43 Order name: Protime (+inr); Complete Time: : rn 06/09 17:43 Order name: Ptt, Activated; Complete Time: 19: rn 06/09 17:43 Order name: IV Start; Complete Time: 18:22 rn Administered Medications: No medications were administered Disposition: 06/09/20 19:06 Discharged to Home. Impression: Diplopia, Headache. - Condition is Stable. - Discharge Instructions: Diplopia, General Headache Without Cause, Migraine Headache. - Medication Reconciliation Form, Thank You Letter, Antibiotic Education, Prescription Opioid Use form. - Follow up: Connor Burrows MD; When: As needed; Reason: Recheck today's complaints, Re-evaluation by your physician. - Problem is new. - Symptoms have improved. Signatures: Dispatcher [employer] EDMax Whatley RN Matty Baires MD MD rn Baxter, Heather, RN RN hb Corrections: (The following items were deleted from the chart) 18:42 18:39 Constitutional: Negative for fever, chills, and weight loss, Eyes: + double rn vision Cardiovascular: Negative for chest pain, palpitations, and edema, Respiratory: Negative for shortness of breath, cough, wheezing, and pleuritic chest pain, Abdomen/GI: Negative for abdominal pain, nausea, vomiting, diarrhea, and constipation, MS/Extremity: Negative for injury and deformity, Skin: Negative for injury, rash, and discoloration, Neuro: + headache, negative for weakness/numbness rn 19:22 19:06 06/09/2020 19:06 Discharged to Home. Impression: Diplopia; Headache. Condition is hb Stable. Forms are Medication Reconciliation Form, Thank You Letter, Antibiotic Education, Prescription Opioid Use. Follow up: Connor Burrows; When: As needed; Reason: Recheck today's complaints, Re-evaluation by your physician. Problem is new. Symptoms have improved. rn
[2020-06-09 19:48] VITALS: BP 127/92; TEMP 98.2; O2SAT 99
== END 2020-06-09 19:22 | disposition home or self-care (01) ==
LOC: ER 16:56
DX: R51 Headache (principal); I10 Essential (primary) hypertension; Z88.2 Allergy status to sulfonamides; Z87.891 Personal history of nicotine dependence
CPT/HCPCS: 36415; 70450; 70496; 80048; 85025; 85610; 85730; 99283; Q9967

== ENCOUNTER 2020-08-31 23:53 | Emergency (ER) | payer SELFPAY ==
--- NOTE | 2020-09-01 03:00 | ER ---
Nurse's Notes [facility] Name: Krysten Gallegos Age: 39 yrs Sex: Female : 1980 Arrival Date: 08/31/2020 Time: 23:55 Bed 4 Private MD: Diagnosis: Hypertension;Person with feared health complaint in whom no diagnosis is made Presentation: 09/01 00:03 Chief complaint: Patient states: i have history of aneurysm before and my doctor mg2 advised me to monitor my BP- should be diastolic less than a 100 mmHg. denies any sx. Coronavirus screen: Client denies travel out of the [place] in the last 14 days. At this time, the client does not indicate any symptoms associated with coronavirus-19. Ebola Screen: No symptoms or risks identified at this time. Initial Sepsis Screen: Does the patient meet any 2 criteria? No. Patient's initial sepsis screen is negative. Does the patient have a suspected source of infection? No. Patient's initial sepsis screen is negative. Risk Assessment: Do you want to hurt yourself or someone else? Patient reports no desire to harm self or others. Onset of symptoms was August 31, 2020. 00:03 Method Of Arrival: Ambulatory mg2 00:03 Acuity: SAMY 4 mg2 Historical: - Allergies: 00:05 Sulfa (Sulfonamide Antibiotics); mg2 - Home Meds: 00:05 citalopram oral [Active]; mg2 - PMHx: 00:05 Aneurysm; Hypertension; mg2 - PSHx: 00:05 None; mg2 - Immunization history:: Flu vaccine is not up to date. - Social history:: Smoking status: Reported history of juuling and/or vaping. Patient/guardian denies using alcohol, street drugs, IV drugs. - Family history:: not pertinent. - Hospitalizations: : No recent hospitalization is reported. Screenin:03 Abuse screen: Denies threats or abuse. Nutritional screening: No deficits noted. jb4 Tuberculosis screening: No symptoms or risk factors identified. Fall Risk None identified. Assessment: 00:03 General: Appears in no apparent distress. comfortable, Behavior is calm, cooperative, jb4 appropriate for age. Pain: Denies pain. Neuro: Level of Consciousness is awake, alert, obeys commands, Oriented to person, place, time, situation. Cardiovascular: Patient's skin is warm and dry. Respiratory: Airway is patent Respiratory effort is even, unlabored, Respiratory pattern is regular, symmetrical. GI: No signs and/or symptoms were reported involving the gastrointestinal system. : No signs and/or symptoms were reported regarding the genitourinary system. EENT: No signs and/or symptoms were reported regarding the EENT system. Derm: Skin is intact, Skin is pink, warm \T\ dry. Musculoskeletal: Circulation, motion, and sensation intact. Range of motion: intact in all extremities. 00:31 Reassessment: Patient appears in no apparent distress at this time. Patient and/or jb4 family updated on plan of care and expected duration. Pain level reassessed. Patient is alert, oriented x 3, equal unlabored respirations, skin warm/dry/pink. Pt verbalized understanding of d/c and follow up instructions. Pt ambulated out of ED with steady gait. Vital Signs: 00:03 BP 136 / 99; Pulse 100; Resp 18; Temp 98.6; Pulse Ox 100% on R/A; Weight 67.59 kg; mg2 Height 5 ft. 2 in. (157.48 cm); Pain 0/10; 00:09 BP 115 / 91; mg2 00:03 Body Mass Index 27.25 (67.59 kg, 157.48 cm) mg2 ED Course: 08/31 23:55 Patient arrived in ED. cl3 23:57 Seth Hay, RN is Primary Nurse. jb4 23:57 Matty Dominguez MD is Attending Physician. rn 09/01 00:03 Patient has correct armband on for positive identification. Bed in low position. Call jb4 light in reach. Side rails up X 1. Pulse ox on. NIBP on. 00:05 Triage completed. mg2 00:05 Arm band placed on. mg2 00:31 No provider procedures requiring assistance completed. Patient did not have IV access jb4 during this emergency room visit. Administered Medications: No medications were administered Outcome: 00:09 Discharge ordered by . rn 00:31 Discharged to home ambulatory, with family. jb4 00:31 Condition: stable 00:31 Discharge instructions given to patient, family, Instructed on discharge instructions, follow up and referral plans. Demonstrated understanding of instructions, follow-up care. 00:32 Patient left the ED. jb4 Signatures: Matty Dominguez MD MD rn Bryson, James, RN RN jb4 Jaguar Mattson, RN RN mg2 David, Ariela cl3
--- NOTE | 2020-09-01 03:00 | EDPHYS ---
Physician Documentation [facility] Name: Krysten Gallegos Age: 39 yrs Sex: Female : 1980 Arrival Date: 08/31/2020 Time: 23:55 Bed 4 Private MD: ED Physician Matty Dominguez HPI: 09/01 00:03 This 39 yrs old Female presents to ER via Unassigned with complaints of High rn Blood Pressure. 00:03 The patient has elevated blood pressure and discovered this at home. Onset: The rn symptoms/episode began/occurred at an unknown time. Modifying factors:. Associated signs and symptoms: The patient has no apparent associated signs or symptoms, Pertinent negatives: chest pain, dizziness, headache, lightheadedness, nausea, visual changes, vomiting, weakness. Severity of symptoms: At its worst the blood pressure was mild, in the emergency department the blood pressure is improved. The patient has experienced similar episodes in the past. The patient has not recently seen a physician. Reports high blood pressure at home, has had trouble keeping it low/normal for the last few days, + mild headache, that is now gone, no focal neuro complaints. Reports hx of aneurysm in past with double vision, told by her doctor that wants BP less than 100 diastolic, taking her meds, came in because of days higher than target. . Historical: - Allergies: 00:05 Sulfa (Sulfonamide Antibiotics); mg2 - Home Meds: 00:05 citalopram oral [Active]; mg2 - PMHx: 00:05 Aneurysm; Hypertension; mg2 - PSHx: 00:05 None; mg2 - Immunization history:: Flu vaccine is not up to date. - Social history:: Smoking status: Reported history of juuling and/or vaping. Patient/guardian denies using alcohol, street drugs, IV drugs. - Family history:: not pertinent. - Hospitalizations: : No recent hospitalization is reported. ROS: 00:03 Constitutional: Negative for fever, chills, and weight loss, Eyes: Negative for injury, rn pain, redness, and discharge, Neck: Negative for injury, pain, and swelling, Cardiovascular: Negative for chest pain, palpitations, and edema, Respiratory: Negative for shortness of breath, cough, wheezing, and pleuritic chest pain, Abdomen/GI: Negative for abdominal pain, nausea, vomiting, diarrhea, and constipation, Back: Negative for injury and pain, MS/Extremity: Negative for injury and deformity, Skin: Negative for injury, rash, and discoloration, Neuro: Negative for headache, weakness, numbness, tingling, and seizure. Exam: 00:03 Constitutional: This is a well developed, well nourished patient who is awake, alert, rn and in no acute distress. Ambulatory to room without assistance. Head/Face: Normocephalic, atraumatic. Eyes: Pupils equal round and reactive to light, extra-ocular motions intact. Lids and lashes normal. Conjunctiva and sclera are non-icteric and not injected. Cornea within normal limits. Periorbital areas with no swelling, redness, or edema. Neck: Supple, full range of motion without nuchal rigidity, or vertebral point tenderness. No Meningismus. Cardiovascular: Regular rate and rhythm. No pulse deficits. Respiratory: No increased work of breathing, no retractions or nasal flaring. Skin: Warm, dry MS/ Extremity: Pulses equal, no cyanosis. Neuro: Awake and alert, GCS 15, oriented to person, place, time, and situation. Cranial nerves II-XII grossly intact. Motor strength 5/5 in all extremities. Sensory grossly intact. Cerebellar exam normal. Normal gait. Vital Signs: 00:03 BP 136 / 99; Pulse 100; Resp 18; Temp 98.6; Pulse Ox 100% on R/A; Weight 67.59 kg; mg2 Height 5 ft. 2 in. (157.48 cm); Pain 0/10; 00:09 BP 115 / 91; mg2 00:03 Body Mass Index 27.25 (67.59 kg, 157.48 cm) mg2 MDM: 08/31 23:57 Patient medically screened. rn 09/01 00:03 Differential diagnosis: asymptomatic HTN, encounter for routine examination. Data rn reviewed: vital signs, nurses notes, old medical records, and as a result, I will discharge patient. Counseling: I had a detailed discussion with the patient and/or guardian regarding: the historical points, exam findings, and any diagnostic results supporting the discharge/admit diagnosis, the need for outpatient follow up, to return to the emergency department if symptoms worsen or persist or if there are any questions or concerns that arise at home. Response to treatment: the patient's symptoms have mildly improved after treatment, the patient is now symptom free, and as a result, I will discharge patient. Special discussion: I discussed with the patient/guardian in detail that at this point there is no indication for admission to the hospital. It is understood, however, that if the symptoms persist or worsen the patient needs to return immediately for re-evaluation. ED course: Pt with normal neuro exam, BP 136/99, will dc home . Repeat BP 115/91. . Administered Medications: No medications were administered Disposition: 09/01/20 00:09 Discharged to Home. Impression: Hypertension, Person with feared health complaint in whom no diagnosis is made. - Condition is Stable. - Discharge Instructions: How to Take Your Blood Pressure, [id number]. - Medication Reconciliation Form, Thank You Letter, Antibiotic Education, Prescription Opioid Use form. - Follow up: Private Physician; When: As needed; Reason: Recheck today's complaints, Re-evaluation by your physician. - Problem is an ongoing problem. - Symptoms have improved. Signatures: Matty Dominguez MD MD rn Bryson, James, RN RN jb4 Jaguar Mattson RN RN mg2 Corrections: (The following items were deleted from the chart) 00:32 00:09 09/01/2020 00:09 Discharged to Home. Impression: Hypertension; Person with feared jb4 health complaint in whom no diagnosis is made. Condition is Stable. Forms are Medication Reconciliation Form, Thank You Letter, Antibiotic Education, Prescription Opioid Use. Follow up: Private Physician; When: As needed; Reason: Recheck today's complaints, Re-evaluation by your physician. Problem is an ongoing problem. Symptoms have improved. rn
[2020-09-03 15:04] VITALS: TEMP 98.6; O2SAT 100
[2020-09-03 15:06] VITALS: BP 115/91
== END 2020-09-01 00:32 | disposition home or self-care (01) ==
LOC: ER 23:53
DX: Z71.1 Person with feared health complaint in whom no diagnosis is made (principal); Z88.2 Allergy status to sulfonamides; Z87.891 Personal history of nicotine dependence
CPT/HCPCS: 99283

== ENCOUNTER 2020-09-02 08:02 | Emergency (ER) | payer SELFPAY ==
[2020-09-02 08:56] LABS: Protime INR 0.96
[2020-09-02 08:57] LABS: Absolute Lymphocytes (CBC) 1.6 K/uL (0.7-4.9); Basophils % 0.8 % (0-1.3); Hematocrit 36.3 % (36.0-45.0); Lymphocytes % 43.5 % (15.3-44.8); MPV 9.1 fL (7.6-11.3); RBC Red Blood Cell Count 4.58 M/uL (3.86-4.86)
--- NOTE | 2020-09-02 09:10 | RAD REPORT ---
EXAM DESCRIPTION: RAD - Chest Single View - 09/02/2020 8:31 am CLINICAL HISTORY: COUGH Chest pain. COMPARISON: No comparisons FINDINGS: Portable technique limits examination quality. The lungs are grossly clear. The heart is normal in size. No displaced fractures. IMPRESSION: No acute intrathoracic process suspected.
--- NOTE | 2020-09-02 09:22 | RAD REPORT ---
EXAM DESCRIPTION: CT - Head Brain Wo Cont - 09/02/2020 9:06 am CLINICAL HISTORY: Headache;Pain Headache, drowsiness, double vision COMPARISON: Head angio dated 09/02/2020; Head Brain Wo Cont dated 06/09/2020; Head angio dated 020 TECHNIQUE: All CT scans are performed using dose optimization technique as appropriate and may inclu de automated exposure control or mA/KV adjustment according to patient size. FINDINGS: No intracranial hemorrhage, hydrocephalus or extra-axial fluid collection.No areas of brai n edema or evidence of midline shift. Mild mucosal thickening of the right maxillary antrum. The paranasal sinuses and mastoids are otherwi se clear. The calvarium is intact. IMPRESSION: No acute intracranial abnormality.
[2020-09-02 09:27] LABS: ALT/SGPT 17 U/L (12-78); AST/SGOT 16 U/L (15-37); Albumin 3.5 g/dL (3.4-5.0); Alkaline Phosphatase 89 U/L (45-117); BUN Blood Urea Nitrogen 9 mg/dL (7-18); Bicarbonate 26 mmol/L (21-32); Bilirubin Direct 0.2 mg/dL (0-0.2); Bilirubin Total 0.7 mg/dL (0.2-1.0); Glucose Level 73 mg/dL (74-106); Magnesium 2.2 mg/dL (1.8-2.4); NT PRO-BNP 25 pg/mL (<125); Potassium 3.7 mmol/L (3.5-5.1); Protein, Total 7.1 g/dL (6.4-8.2); Sodium Level 140 mmol/L (136-145); Troponin (Emerg Dept Use Only) < 0.02 ng/mL (0.0-0.045)
[2020-09-02 09:30] LABS: C-Reactive Protein < 2.90 mg/L (<3.00)
--- NOTE | 2020-09-02 09:30 | RAD REPORT ---
EXAM DESCRIPTION: CT - Head angio - 09/02/2020 9:06 am CLINICAL HISTORY: Headache;Visual disturbances Headache, drowsiness COMPARISON: Head Brain Wo Cont dated 06/09/2020; Head angio dated 06/09/2020; MRA Neck W/Wo Cont dated 06/03/2020; Brain W/Wo Cont dated 06/03/2020; MRA Head Wo Cont dated 06/03/2020 TECHNIQUE: CT angiography of the head was performed with MIPs. All CT scans are performed using dose optimization technique as appropriate and may include automated exposure control or mA/KV adjustment according to patient size. FINDINGS: No evidence of aneurysm is detected. Subtle prominence of basilar tip is unchanged since p rior studies. No flow-limiting stenosis or vascular malformation identified. Antegrade flow is seen in the vertebral arteries. The vertebral arteries are codominant. The visualized dural venous sinuses are patent. IMPRESSION: No significant flow abnormality is detected.
--- NOTE | 2020-09-02 09:31 | RAD REPORT ---
EXAM DESCRIPTION: CT - Neck Angio - 09/02/2020 9:06 am CLINICAL HISTORY: neck pain COMPARISON: Head angio dated 06/09/2020; MRA Neck W/Wo Cont dated 06/03/2020; Brain W/Wo Cont dated TECHNIQUE: CT angiography of the neck vessels was performed with MIPs. All CT scans are performed using dose optimization technique as appropriate and may include automated exposure control or mA/KV adjustment according to patient size. FINDINGS: A left aortic arch is identified with normal three vessel configuration of the great vesse ls. No significant flow abnormality is seen of the common carotid bilaterally. No significant stenosis is identified involving the cervical segments of both internal carotid arteri es. Normal flow is seen within both vertebral arteries. IMPRESSION: No significant flow abnormality of the neck vessels is identified.
[2020-09-02 10:40] LABS: Barbiturates NEGATIVE (NEGATIVE); Benzodiazepines NEGATIVE (NEGATIVE); Cocaine NEGATIVE (NEGATIVE); METHAMPHETAM NEGATIVE (NEGATIVE); Methadone NEGATIVE (NEGATIVE); Opiates NEGATIVE (NEGATIVE); Phencyclidine NEGATIVE (NEGATIVE); THC Cannibis NEGATIVE (NEGATIVE)
[2020-09-02 10:52] LABS: Urine Blood NEGATIVE (NEG); Urine Glucose NEGATIVE (NEG); Urine Protein NEGATIVE (NEG); Urine pH 7.5 (5.0-7.0)
--- NOTE | 2020-09-02 11:16 | ER ---
Nurse's Notes [facility] Name: Krysten Gallegos Age: 39 yrs Sex: Female : 1980 Arrival Date: 09/02/2020 Time: 08:03 Bed 5 Private MD: Diagnosis: Diplopia-monoccular;Headache Presentation: 09/02 08:05 Chief complaint: Patient states: "I woke up with double vision to my left eye and I aa5 have a brain aneurysm that they just found maybe like 3 months ago". Pt reports she followed-up with neurology approximately 2 months ago. Pt also reports she woke up with neck pain, and reports tingling on and off "for a while" to R fingers. Last known normal was last night at 2300. 08:05 Acuity: SAMY 2 aa5 08:05 Method Of Arrival: Wheelchair aa5 08:05 Coronavirus screen: Client denies travel out of the [place] in the last 14 days. At this aa5 time, the client does not indicate any symptoms associated with coronavirus-19. Ebola Screen: Patient negative for fever greater than or equal to 101.5 degrees Fahrenheit, and additional compatible Ebola Virus Disease symptoms. Initial Sepsis Screen: Does the patient meet any 2 criteria? No. Patient's initial sepsis screen is negative. Does the patient have a suspected source of infection? No. Patient's initial sepsis screen is negative. Risk Assessment: Do you want to hurt yourself or someone else? Patient reports no desire to harm self or others. Onset of symptoms was August 2020. Triage Assessment: 08:18 General: Appears distressed, uncomfortable, Behavior is cooperative, appropriate for bp age, anxious. Pain: Complains of pain in head and neck. EENT: No deficits noted. Neuro: Reports diplopia. Cardiovascular: No deficits noted. Respiratory: No deficits noted. GI: No signs and/or symptoms were reported involving the gastrointestinal system. : No signs and/or symptoms were reported regarding the genitourinary system. Derm: No deficits noted. Musculoskeletal: No deficits noted. Historical: - Allergies: 08:05 Sulfa (Sulfonamide Antibiotics); aa5 - PMHx: 08:05 Hypertension; Brain Aneurysm; aa5 - Immunization history:: Adult Immunizations unknown. - Social history:: Smoking status: Reported history of juuling and/or vaping. Screenin:19 Abuse screen: Denies threats or abuse. Denies injuries from another. Nutritional bp screening: No deficits noted. Tuberculosis screening: No symptoms or risk factors identified. Fall Risk None identified. Assessment: 08:18 General: SEE TRIAGE NOTE. Neuro: Level of Consciousness is awake, alert, obeys bp commands, Oriented to Appropriate for age. 10:15 Reassessment: No changes from previously documented assessment. Patient and/or family bp updated on plan of care and expected duration. Pain level reassessed. Patient is alert, oriented x 3, equal unlabored respirations, skin warm/dry/pink. ALL CURRENT ORDERS COMPLETED, RESULTS PENDING. 11:30 Reassessment: Patient appears in no apparent distress at this time. No changes from bp previously documented assessment. Patient and/or family updated on plan of care and expected duration. Pain level reassessed. Patient is alert, oriented x 3, equal unlabored respirations, skin warm/dry/pink. ALL CURRENT ORDERS IN PROCESS. IVF INFUSING. 13:11 Reassessment: PT D/C HOME VIA W/C WITH FAMILY, DX WITH DIPLOPIA. bp Vital Signs: 08:05 BP 96 / 67; Pulse 95; Resp 18 S; Temp 97.5(TE); Pulse Ox 100% on R/A; Weight 63.5 kg aa5 (R); Height 5 ft. 5 in. (165.10 cm) (R); Pain 6/10; 10:15 BP 102 / 74; Pulse 64; Resp 16; Pulse Ox 100% ; bp 11:15 BP 105 / 76; Pulse 63; Resp 17; Pulse Ox 100% ; bp 12:00 BP 119 / 80; Pulse 61; Resp 19; Pulse Ox 100% ; bp 13:00 BP 140 / 86; Pulse 64; Resp 17; Temp 97.7; Pulse Ox 100% ; bp 08:05 Body Mass Index 23.30 (63.50 kg, 165.10 cm) aa5 ED Course: 08:03 Patient arrived in ED. as 08:05 Arm band placed on. aa5 08:05 Patient has correct armband on for positive identification. aa5 08:11 Robbi Ellsworth MD is Attending Physician. alexia 08:15 Triage completed. aa5 08:17 Roscoe Rico, RN is Primary Nurse. bp 08:32 XRAY Chest (1 view) In Process Unspecified. EDMS 09:06 Neck Angio In Process Unspecified. EDMS 09:06 CT Head Brain wo Cont In Process Unspecified. EDMS 09:06 CT Head Angio In Process Unspecified. EDMS 09:06 CT completed. Patient tolerated procedure well. Patient moved to CT via stretcher. Patient moved back from CT. 10:19 CBC with Diff Sent. bp 10:19 Basic Metabolic Panel Sent. bp 11:[address] ellsworth, to [facility], pt denied due to no beds at [facility], no beds at [facility] also. per Radha Rosa. 12:36 Deepak Gan MD is Referral Physician. alexia 12:36 Connor Roach MD is Referral Physician. alexia 13:12 No provider procedures requiring assistance completed. IV discontinued, intact, bp bleeding controlled, No redness/swelling at site. Pressure dressing applied. Administered Medications: 08:45 Drug: NS 0.9% 1000 ml Route: IV; Rate: 125 ml/hr; Site: right antecubital; bp 12:51 Follow up: IV Status: Completed infusion; IV Intake: 500ml bp Intake: 12:51 IV: 500ml; Total: 500ml. bp Outcome: 11:15 ER care complete, transfer ordered by . alexia 12:37 Discharge ordered by . alexia 13:12 Discharged to home via wheelchair, with family. bp 13:12 Condition: stable 13:12 Discharge instructions given to patient, Instructed on discharge instructions, follow up and referral plans. medication usage, Demonstrated understanding of instructions, follow-up care, medications, Prescriptions given X 1. 13:34 Patient left the ED. em Signatures: Dispatcher [employer] EDMS Dottie Vences Corey, MD MD cha Munoz, Edgar, RN RN em Adelina Lockwood Audri, RN RN Krysten Lyle Brian, KRISTOPHER RN bp
--- NOTE | 2020-09-02 11:16 | EDPHYS ---
Physician Documentation [facility] Name: Krysten Gallegos Age: 39 yrs Sex: Female : 1980 Arrival Date: 09/02/2020 Time: 08:03 Bed 5 Private MD: AAKASH Physician Robbi Ellsworth HPI: 09/02 09:17 This 39 yrs old Female presents to ER via Wheelchair with complaints of alexia Blurred Vision - l eye, Neck Pain, <24hrs Old. 09:17 The patient or guardian complains of pain, that is acute. The symptoms are located on alexia the neck. Onset: The symptoms/episode began/occurred this morning. Context: The problem was sustained at home. Associated signs and symptoms: The patient has no apparent associated signs or symptoms. The pain does not radiate. Modifying factors: The symptoms are alleviated by nothing. Historical: - Allergies: 08:05 Sulfa (Sulfonamide Antibiotics); aa5 - PMHx: 08:05 Hypertension; Brain Aneurysm; aa5 - Immunization history:: Adult Immunizations unknown. - Social history:: Smoking status: Reported history of juuling and/or vaping. ROS: 09:18 Constitutional: Negative for fever, chills, and weight loss, ENT: Negative for injury, alexia pain, and discharge, Neck: Negative for injury, pain, and swelling, Cardiovascular: Negative for chest pain, palpitations, and edema, Respiratory: Negative for shortness of breath, cough, wheezing, and pleuritic chest pain, Abdomen/GI: Negative for abdominal pain, nausea, vomiting, diarrhea, and constipation, Back: Negative for injury and pain, : Negative for injury, bleeding, discharge, and swelling, MS/Extremity: Negative for injury and deformity, Skin: Negative for injury, rash, and discoloration, Neuro: Negative for headache, weakness, numbness, tingling, and seizure, Psych: Negative for depression, anxiety, suicide ideation, homicidal ideation, and hallucinations, Allergy/Immunology: Negative for hives, rash, and allergies, Endocrine: Negative for neck swelling, polydipsia, polyuria, polyphagia, and marked weight changes, Hematologic/Lymphatic: Negative for swollen nodes, abnormal bleeding, and unusual bruising. 09:18 Eyes: Positive for pain, visual disturbance, left eye double vision. 09:18 ENT: Positive for diplopia left eye only. alexia Exam: 09:18 Constitutional: This is a well developed, well nourished patient who is awake, alert, alexia and in no acute distress. Head/Face: Normocephalic, atraumatic. ENT: Nares patent. No nasal discharge, no septal abnormalities noted. Tympanic membranes are normal and external auditory canals are clear. Oropharynx with no redness, swelling, or masses, exudates, or evidence of obstruction, uvula midline. Mucous membranes moist. Neck: Trachea midline, no thyromegaly or masses palpated, and no cervical lymphadenopathy. Supple, full range of motion without nuchal rigidity, or vertebral point tenderness. No Meningismus. Chest/axilla: Normal chest wall appearance and motion. Nontender with no deformity. No lesions are appreciated. Cardiovascular: Regular rate and rhythm with a normal S1 and S2. No gallops, murmurs, or rubs. Normal PMI, no JVD. No pulse deficits. Respiratory: Lungs have equal breath sounds bilaterally, clear to auscultation and percussion. No rales, rhonchi or wheezes noted. No increased work of breathing, no retractions or nasal flaring. Abdomen/GI: Soft, non-tender, with normal bowel sounds. No distension or tympany. No guarding or rebound. No evidence of tenderness throughout. Back: No spinal tenderness. No costovertebral tenderness. Full range of motion. Skin: Warm, dry with normal turgor. Normal color with no rashes, no lesions, and no evidence of cellulitis. MS/ Extremity: Pulses equal, no cyanosis. Neurovascular intact. Full, normal range of motion. Neuro: Awake and alert, GCS 15, oriented to person, place, time, and situation. Cranial nerves II-XII grossly intact. Motor strength 5/5 in all extremities. Sensory grossly intact. Cerebellar exam normal. Normal gait. Psych: Awake, alert, with orientation to person, place and time. Behavior, mood, and affect are within normal limits. 09:18 Eyes: Periorbital structures: appear normal, no acute changes, Pupils: no acute changes, equal, round, and reactive to light and accomodation, Extraocular movements: intact throughout, Conjunctiva: normal, no acute changes, Corneas: are normal, no acute changes, Sclera: no appreciated abnormality, no acute changes, Anterior chamber: normal, no acute changes, Lids and lashes: appear normal, no acute changes, funduscopic exam reveals no obvious abnormalities, no acute changes, Nystagmus: is not appreciated, no acute changes. Vital Signs: 08:05 BP 96 / 67; Pulse 95; Resp 18 S; Temp 97.5(TE); Pulse Ox 100% on R/A; Weight 63.5 kg aa5 (R); Height 5 ft. 5 in. (165.10 cm) (R); Pain 6/10; 10:15 BP 102 / 74; Pulse 64; Resp 16; Pulse Ox 100% ; bp 11:15 BP 105 / 76; Pulse 63; Resp 17; Pulse Ox 100% ; bp 12:00 BP 119 / 80; Pulse 61; Resp 19; Pulse Ox 100% ; bp 13:00 BP 140 / 86; Pulse 64; Resp 17; Temp 97.7; Pulse Ox 100% ; bp 08:05 Body Mass Index 23.30 (63.50 kg, 165.10 cm) aa5 MDM: 08:11 Patient medically screened. alexia 09:21 Differential diagnosis: Acute iritis of Acute glaucoma in Epidural Abcess Neck alexia Contusion. Data reviewed: vital signs, nurses notes, lab test result(s), EKG, radiologic studies, CT scan, plain films. Data interpreted: snack steward: rate is 95 beats/min, rhythm is regular, Pulse oximetry: on room air is 100 %. Test interpretation: by ED physician or midlevel provider: ECG, plain radiologic studies. Counseling: I had a detailed discussion with the patient and/or guardian regarding: the historical points, exam findings, and any diagnostic results supporting the discharge/admit diagnosis, lab results, radiology results. 12:33 Other consultation: dr magnus hernandez, monooccular diplopia, explained all findings and alexia studies, no admission or transfer necessary at this time. 12:38 Physician consultation: Connor Roach MD and will see patient in office, follow optho alexia and me (neuro) as out patient, dc home , not to admit, agrees with dr magnus hernandez. 09/02 08:13 Order name: Basic Metabolic Panel [facility] 09/02 08:13 Order name: CBC with Diff [facility] 09/02 08:13 Order name: LFT's; Complete Time: 10:00 [facility] 09/02 08:13 Order name: Magnesium; Complete Time: 10:00 [facility] 09/02 08:13 Order name: NT PRO-BNP; Complete Time: 10:00 [facility] 09/02 08:13 Order name: PT-INR; Complete Time: 10:00 [facility] 09/02 08:13 Order name: Troponin (emerg Dept Use Only); Complete Time: 10:00 [facility] 09/02 08:13 Order name: Sed Rate; Complete Time: 10:00 [facility] 09/02 08:13 Order name: CRP; Complete Time: 10:00 [facility] 09/02 08:14 Order name: Basic Metabolic Panel; Complete Time: 10:00 [facility] 09/02 08:14 Order name: CBC with Automated Diff; Complete Time: 10:00 [facility] 09/02 08:18 Order name: Urine Culture [facility] 09/02 09:16 Order name: UDS; Complete Time: 11:07 [facility] 09/02 10:20 Order name: Urine Dipstick--Ancillary (enter results); Complete Time: 11:07 09/02 08:13 Order name: XRAY Chest (1 view); Complete Time: 10:00 [facility] 09/02 08:13 Order name: Cardiac monitoring; Complete Time: 08:48 [facility] 09/02 08:13 Order name: EKG - Nurse/Tech; Complete Time: 10:19 [facility] 09/02 08:13 Order name: IV Saline Lock; Complete Time: 08:48 [facility] 09/02 08:13 Order name: Labs collected and sent; Complete Time: 08:48 [facility] 09/02 08:13 Order name: O2 Per Protocol; Complete Time: 08:48 [facility] 09/02 08:13 Order name: O2 Sat Monitoring; Complete Time: 08:48 [facility] 09/02 08:13 Order name: CT Head Brain wo Cont; Complete Time: 10:00 [facility] 09/02 08:13 Order name: CT Head Angio; Complete Time: 10:00 [facility] 09/02 08:15 Order name: Neck Angio; Complete Time: 10:00 [facility] 09/02 08:18 Order name: Urine Dipstick-Ancillary (obtain specimen); Complete Time: 10:19 [facility] 09/02 08:18 Order name: Urine Test (obtain specimen); Complete Time: 10:19 [facility] 09/02 10:20 Order name: Urine --Ancillary (enter results); Complete Time: 11:07 bd 09/02 11:07 Order name: CREATININE WHOLE BLOOD; Complete Time: 11:11 EDMS Administered Medications: 08:45 Drug: NS 0.9% 1000 ml Route: IV; Rate: 125 ml/hr; Site: right antecubital; bp 12:51 Follow up: IV Status: Completed infusion; IV Intake: 500ml bp Disposition: 09/02/20 12:37 Discharged to Home. Impression: Diplopia - monoccular, Headache. - Condition is Stable. - Discharge Instructions: Diplopia, General Headache Without Cause, General Headache Without Cause, [id number]. - Prescriptions for Ibuprofen 600 mg Oral Tablet - take 1 tablet by ORAL route every 8 hours As needed take with food; 21 tablet. - Medication Reconciliation Form, Thank You Letter, Antibiotic Education, Prescription Opioid Use form. - Follow up: Private Physician; When: 2 - 3 days; Reason: Recheck today's complaints, Continuance of care, Re-evaluation by your physician. Follow up: Deepak Gan MD; When: 2 - 3 days; Reason: Recheck today's complaints, Re-evaluation by your physician. Follow up: Connor Roach MD; When: 2 - 3 days; Reason: Recheck today's complaints, Continuance of care, Re-evaluation by your physician. - Problem is new. - Symptoms have improved. Signatures: Dispatcher [employer] EDMS Robbi Ellsworth MD MD cha Munoz, Edgar, RN RN em Vicky Frank RN RN aa5 Roscoe Rico RN RN bp Corrections: (The following items were deleted from the chart) 09:20 09:18 ENT: Positive for alexia alexia 11:52 11:15 09/02/2020 11:15 Transfer ordered to [facility]. Diagnosis is Diplopia; alexia Headache. Reason for transfer: Higher level of care. Accepting physician is to [facility]. Condition is Fair. Problem is new. Symptoms have improved. alexia 12:32 11:52 09/02/2020 11:15 [facility] Diagnosis is Diplopia; alexia Headache. Reason for transfer: Higher level of care. [facility]. Condition is Fair. Problem is new. Symptoms have improved. alexia 12:38 12:37 09/02/2020 12:37 Discharged to Home. Impression: Diplopia; Headache. Condition is alexia Stable. Forms are Medication Reconciliation Form, Thank You Letter, Antibiotic Education, Prescription Opioid Use. Follow up: Private Physician; When: 2 - 3 days; Reason: Recheck today's complaints, Continuance of care, Re-evaluation by your physician. Follow up: Deepak Gan; When: 2 - 3 days; Reason: Recheck today's complaints, Re-evaluation by your physician. Follow up: Connor Roach; When: 2 - 3 days; Reason: Recheck today's complaints, Continuance of care, Re-evaluation by your physician. Problem is new. Symptoms have improved. alexia 13:34 12:38 09/02/2020 12:37 Discharged to Home. Impression: Diplopia - monoccular; Headache. em Condition is Stable. Forms are Medication Reconciliation Form, Thank You Letter, Antibiotic Education, Prescription Opioid Use. Follow up: Private Physician; When: 2 - 3 days; Reason: Recheck today's complaints, Continuance of care, Re-evaluation by your physician. Follow up: Deepak Gan; When: 2 - 3 days; Reason: Recheck today's complaints, Re-evaluation by your physician. Follow up: Connor Roach; When: 2 - 3 days; Reason: Recheck today's complaints, Continuance of care, Re-evaluation by your physician. Problem is new. Symptoms have improved. alexia
[2020-09-04 03:07] VITALS: O2SAT 100
[2020-09-04 03:12] VITALS: BP 140/86; TEMP 97.7
== END 2020-09-02 13:34 | disposition home or self-care (01) ==
LOC: ER 08:02
DX: H53.2 Diplopia (principal); I10 Essential (primary) hypertension; I67.1 Cerebral aneurysm, nonruptured; Z88.2 Allergy status to sulfonamides
CPT/HCPCS: 36415; 70450; 70496; 70498; 71045; 80048; 80076; 80307; 81003; 81025; 82565; 83735; 83880; 84484; 85025; 85610; 85652; 86140; 87086; 87088; 96360; 96361; 99284; Q9967

== ENCOUNTER 2020-11-16 00:04 | Emergency (ER) | payer OTHER, SELFPAY ==
[2020-11-16] MEDS ORDERED: TETRACAINE HCL 0.5% 4ML OPTH ONE (00:41)
[2020-11-16] MEDS ORDERED: FLUORESCEIN SODIUM 1 MG/WRAP ONE (00:41)
--- NOTE | 2020-11-16 00:59 | ER ---
Nurse's Notes [facility] Name: Krysten Gallegos Age: 39 yrs Sex: Female : 1980 Arrival Date: 11/16/2020 Time: 00:07 Bed 7 Private MD: Diagnosis: Corneal Abrasion-Left Presentation: 11/16 00:14 Chief complaint: Patient states: my contact lens is stucked in my left eye for 3 hours mg2 now. i accidentally rubbed my eyes while im driving tonight. Coronavirus screen: Client denies travel out of the [place] in the last 14 days. At this time, the client does not indicate any symptoms associated with coronavirus-19. Ebola Screen: No symptoms or risks identified at this time. The patient denies any loss of vision. Initial Sepsis Screen: Does the patient meet any 2 criteria? No. Patient's initial sepsis screen is negative. Does the patient have a suspected source of infection? No. Patient's initial sepsis screen is negative. Risk Assessment: Do you want to hurt yourself or someone else? Patient reports no desire to harm self or others. Onset of symptoms was November 15, 2020. 00:14 Method Of Arrival: Ambulatory mg2 00:14 Acuity: SAMY 4 mg2 Triage Assessment: 00:19 General: Appears in no apparent distress. comfortable, Behavior is calm, cooperative. mg2 Pain: Complains of pain in left eye. EENT: Eyes left eye. Neuro: Level of Consciousness is awake, alert, obeys commands, Oriented to person, place, time, situation. Cardiovascular: Capillary refill < 3 seconds. Respiratory: Airway is patent Respiratory effort is even, unlabored, Respiratory pattern is regular, symmetrical. GI: No signs and/or symptoms were reported involving the gastrointestinal system. : No signs and/or symptoms were reported regarding the genitourinary system. Derm: Skin is intact, is healthy with good turgor, Skin is pink, warm \T\ dry. normal. Musculoskeletal: Circulation, motion, and sensation intact. Capillary refill < 3 seconds. Historical: - Allergies: 00:19 Sulfa (Sulfonamide Antibiotics); mg2 - Home Meds: 00:19 citalopram oral [Active]; mg2 - PMHx: 00:19 Aneurysm; brain aneurysm; Hypertension; mg2 - PSHx: 00:19 None; mg2 - Immunization history:: Flu vaccine status is unknown. - Social history:: Smoking status: Patient denies any tobacco usage or history of. Patient/guardian denies using alcohol, street drugs, IV drugs. Screenin:21 Abuse screen: Denies threats or abuse. Denies injuries from another. Nutritional mg2 screening: No deficits noted. Tuberculosis screening: No symptoms or risk factors identified. Fall Risk None identified. Assessment: 00:20 Reassessment: see triage note. mg2 Vital Signs: 00:14 BP 136 / 100; Pulse 105; Resp 18; Temp 98.2; Pulse Ox 100% on R/A; Weight 65.77 kg; mg2 Height 5 ft. 3 in. (160.02 cm); 00:14 Body Mass Index 25.69 (65.77 kg, 160.02 cm) mg2 ED Course: 00:07 Patient arrived in ED. cl3 00:08 Nidhi Luciano RN is Primary Nurse. 00:08 Song Liz MD is Attending Physician. [facility] 00:18 Triage completed. mg2 00:19 Arm band placed on. mg2 00:21 Patient has correct armband on for positive identification. mg2 00:21 Patient did not have IV access during this emergency room visit. [facility] 00:58 Morena Marie MD is Referral Physician. 7 01:00 Assist provider with eye exam of left eye. using fluorescein stain, Performed by [facility] Song Liz MD Dressed with eye patch Patient tolerated well. Administered Medications: 00:35 Drug: Tetracaine Drops 0.5 % 1 drops {Note: administered by the dr.} Route: Ophthalmic; mg2 Site: left eye; 00:52 Follow up: Response: No adverse reaction mg2 Outcome: 00:59 Discharge ordered by . 7 01:16 Discharged to home ambulatory. [facility] 01:16 Condition: stable 01:16 Discharge instructions given to patient, Instructed on discharge instructions, follow up and referral plans. medication usage, Demonstrated understanding of instructions, follow-up care, medications, Prescriptions given X 1. 01:17 Patient left the ED. [facility] Signatures: Nidhi Luciano RN RN Jaguar Mattson RN RN [facility] Ariela Hernandez 3 Song Liz MD MD [facility] Corrections: (The following items were deleted from the chart) 01:17 00:21 No provider procedures requiring assistance completed. mg2 mg2
--- NOTE | 2020-11-16 01:00 | EDPHYS ---
Physician Documentation [facility] Name: Krysten Gallegos Age: 39 yrs Sex: Female : 1980 Arrival Date: 11/16/2020 Time: 00:07 Bed 7 Private MD: ED Physician Song Liz HPI: 11/16 00:50 This 39 yrs old Female presents to ER via Ambulatory with complaints of Eye mh7 Pain, Redness of Eye. 00:50 The patient is experiencing redness, contact lens stuck in eye, The patient sustained mh7 None. to the left eye, caused by contact lens. Onset: The symptoms/episode began/occurred today. Duration: the symptoms are continuous. Aggravated by rubbing, Alleviated by nothing. Associated signs and symptoms: Pertinent negatives: chills, dizziness, ear ache, fever, headache, runny nose. Patient wears soft contacts. Severity of symptoms: At their worst the symptoms were mild today, in the emergency department the symptoms are unchanged. States that she is unable to remove contact lens from left eye and thinks its under her upper eyelid.. Historical: - Allergies: 00:19 Sulfa (Sulfonamide Antibiotics); mg2 - Home Meds: 00:19 citalopram oral [Active]; mg2 - PMHx: 00:19 Aneurysm; brain aneurysm; Hypertension; mg2 - PSHx: 00:19 None; mg2 - Immunization history:: Flu vaccine status is unknown. - Social history:: Smoking status: Patient denies any tobacco usage or history of. Patient/guardian denies using alcohol, street drugs, IV drugs. ROS: 00:50 Constitutional: Negative for fever, chills, and weight loss, ENT: Negative for injury, mh7 pain, and discharge, Neck: Negative for injury, pain, and swelling, Cardiovascular: Negative for chest pain, palpitations, and edema, Respiratory: Negative for shortness of breath, cough, wheezing, and pleuritic chest pain, Abdomen/GI: Negative for abdominal pain, nausea, vomiting, diarrhea, and constipation, Back: Negative for injury and pain, : Negative for injury, bleeding, discharge, and swelling, MS/Extremity: Negative for injury and deformity, Skin: Negative for injury, rash, and discoloration, Neuro: Negative for headache, weakness, numbness, tingling, and seizure, Psych: Negative for depression, anxiety, suicide ideation, homicidal ideation, and hallucinations, Allergy/Immunology: Negative for hives, rash, and allergies, Endocrine: Negative for neck swelling, polydipsia, polyuria, polyphagia, and marked weight changes, Hematologic/Lymphatic: Negative for swollen nodes, abnormal bleeding, and unusual bruising. Exam: 00:50 Constitutional: This is a well developed, well nourished patient who is awake, alert, mh7 and in no acute distress. Head/Face: Normocephalic, atraumatic. 00:50 Eyes: Periorbital structures: appear normal, Pupils: equal, round, and reactive to light and accomodation, Extraocular movements: intact throughout, Conjunctiva: injected, in the left eye. 00:55 Neck: Trachea midline, no thyromegaly or masses palpated, and no cervical mh7 lymphadenopathy. Supple, full range of motion without nuchal rigidity, or vertebral point tenderness. No Meningismus. Cardiovascular: Regular rate and rhythm with a normal S1 and S2. No gallops, murmurs, or rubs. Normal PMI, no JVD. No pulse deficits. Respiratory: Lungs have equal breath sounds bilaterally, clear to auscultation and percussion. No rales, rhonchi or wheezes noted. No increased work of breathing, no retractions or nasal flaring. Abdomen/GI: Soft, non-tender, with normal bowel sounds. No distension or tympany. No guarding or rebound. No evidence of tenderness throughout. Skin: Warm, dry with normal turgor. Normal color with no rashes, no lesions, and no evidence of cellulitis. MS/ Extremity: Pulses equal, no cyanosis. Neurovascular intact. Full, normal range of motion. Neuro: Awake and alert, GCS 15, oriented to person, place, time, and situation. Cranial nerves II-XII grossly intact. Motor strength 5/5 in all extremities. Sensory grossly intact. Cerebellar exam normal. Normal gait. Psych: Awake, alert, with orientation to person, place and time. Behavior, mood, and affect are within normal limits. 00:55 Eyes: Corneas: abrasion, that is moderate sized, on the left, at 3 o'clock, foreign body, is not appreciated, a fluorescein strip employed to appreciate the findings, Sclera: no appreciated abnormality, Lids and lashes: appear normal, funduscopic exam reveals no obvious abnormalities, Visual chamorro: are intact, Nystagmus: is not appreciated. Vital Signs: 00:14 BP 136 / 100; Pulse 105; Resp 18; Temp 98.2; Pulse Ox 100% on R/A; Weight 65.77 kg; mg2 Height 5 ft. 3 in. (160.02 cm); 00:14 Body Mass Index 25.69 (65.77 kg, 160.02 cm) mg2 MDM: 00:55 Differential diagnosis: Corneal abrasion of left eye. Corneal ulcer of Foreign body in 7 left eye. Data reviewed: vital signs, nurses notes. Data interpreted: Pulse oximetry: on room air is 100 %. Interpretation: normal. Counseling: I had a detailed discussion with the patient and/or guardian regarding: the historical points, exam findings, and any diagnostic results supporting the discharge/admit diagnosis, the presence of at least one elevated blood pressure reading (>120/80) during this emergency department visit, the need for outpatient follow up, an opthalmologist, to return to the emergency department if symptoms worsen or persist or if there are any questions or concerns that arise at home. Response to treatment: the patient's symptoms have markedly improved after treatment. 00:59 Patient medically screened. [facility] 11/16 00:24 Order name: Whit Opth strip; Complete Time: 00:52 [facility] Administered Medications: 00:35 Drug: Tetracaine Drops 0.5 % 1 drops {Note: administered by the drAlexandr} Route: Ophthalmic; mg2 Site: left eye; 00:52 Follow up: Response: No adverse reaction [facility] [place] Disposition: 11/16/20 00:59 Discharged to Home. Impression: Corneal Abrasion-Left. - Condition is Stable. - Discharge Instructions: Corneal Abrasion, [id number]. - Prescriptions for Ciloxan 0.3 % Ophthalmic Drops - instill 2 drop by OPHTHALMIC route every 6 hours for 7 days; 5 milliliter. - Medication Reconciliation Form, Thank You Letter, Antibiotic Education, Prescription Opioid Use form. - Follow up: Private Physician; When: 1 - 2 days; Reason: Worsening of condition, Recheck today's complaints, Continuance of care, Re-evaluation by your physician. Follow up: Morena Marie MD; When: Today; Reason: Worsening of condition, Recheck today's complaints. - Problem is new. - Symptoms have improved. Signatures: Jaguar Mattson RN RN mg2 Song Liz MD MD 7 Corrections: (The following items were deleted from the chart) 01:17 00:59 11/16/2020 00:59 Discharged to Home. Impression: Corneal Abrasion-Left. Condition mg2 is Stable. Forms are Medication Reconciliation Form, Thank You Letter, Antibiotic Education, Prescription Opioid Use. Follow up: Private Physician; When: 1 - 2 days; Reason: Worsening of condition, Recheck today's complaints, Continuance of care, Re-evaluation by your physician. Follow up: Morena Marie; When: Today; Reason: Worsening of condition, Recheck today's complaints. Problem is new. Symptoms have improved. mh7
[2020-11-16 04:44] VITALS: BP 136/100; TEMP 98.2; O2SAT 100
== END 2020-11-16 01:17 | disposition home or self-care (01) ==
LOC: ER 00:04
DX: S05.02XA Injury of conjunctiva and corneal abrasion without foreign body, left eye, initial encounter (principal); I10 Essential (primary) hypertension; Z88.2 Allergy status to sulfonamides
CPT/HCPCS: 99283

== ENCOUNTER 2021-07-07 03:03 | Emergency (ER) | payer OTHER ==
[2021-07-07] MEDS ORDERED: ACETAMINOPHEN 325 MG TABLET ONE (04:08)
[2021-07-07 04:16] LABS: ALT/SGPT 26 U/L (12-78); AST/SGOT 30 U/L (15-37); Alkaline Phosphatase 131 U/L (45-117); Amylase 23 U/L (25-115); BUN Blood Urea Nitrogen 16 mg/dL (7-18); Bicarbonate 23 mmol/L (21-32); Bilirubin Direct 0.2 mg/dL (0-0.2); Bilirubin Total 0.6 mg/dL (0.2-1.0); CKMB Creatine Kinase MB 5.6 ng/mL (1.0-3.6); Creatine Phosphokinase 410 U/L (26-192); Glucose Level 90 mg/dL (74-106); Lipase 36 U/L (73-393); Protein, Total 8.1 g/dL (6.4-8.2); Sodium Level 143 mmol/L (136-145); Troponin (Emerg Dept Use Only) < 0.02 ng/mL (0.0-0.045)
[2021-07-07 04:23] LABS: Absolute Lymphocytes (CBC) 0.9 K/uL (0.7-4.9); Basophils % 0.4 % (0-1.3); Hematocrit 33.8 % (36.0-45.0); Lymphocytes % 8.7 % (15.3-44.8); MPV 7.9 fL (7.6-11.3); RBC Red Blood Cell Count 4.37 M/uL (3.86-4.86)
[2021-07-07] MEDS ORDERED: CEFEPIME 1 GM/VIAL ONE (04:26)
[2021-07-07] MEDS ORDERED: NA CHLORIDE 0.9% 1,000 ML ONE ×2 (04:26→07:38)
[2021-07-07] MEDS ORDERED: NA CHLORIDE 0.9% 100 ML ONE (04:27)
[2021-07-07 04:39] LABS: Protime INR 1.1
[2021-07-07 07:10] LABS: Urine Blood 2+ (Negative); Urine Glucose Negative (Negative); Urine Protein 1+ (Negative); Urine Specific Gravity >=1.030 (1.005-1.030); Urine pH 5.5 (5.0-7.0)
--- NOTE | 2021-07-07 07:35 | RAD REPORT ---
EXAM DESCRIPTION: Carin Single View07/07/2021 4:37 am CLINICAL HISTORY: Fever COMPARISON: May 2021 FINDINGS: The lungs appear clear of acute infiltrate. The heart is normal size IMPRESSION: No acute abnormalities displayed
--- NOTE | 2021-07-07 07:46 | RAD REPORT ---
EXAM DESCRIPTION: CT - Head Brain Wo Cont - 07/07/2021 7:37 am CLINICAL HISTORY: Alteration of awareness/confusion COMPARISON: 2019 TECHNIQUE: Computed axial tomography of the head was obtained. IV contrast was not requested. All CT scans are performed using dose optimization technique as appropriate and may include automated exposure control or mA/KV adjustment according to patient size. FINDINGS: An intracranial bleed is not seen . The ventricles are normal in caliber. No extra-axial fluid collection is noted. Chronic opacification right maxillary sinus indicative of sinusitis. IMPRESSION: No acute intracranial abnormality is seen. If patient's symptoms persist MRI of the bra in would be recommended.
[2021-07-07] MEDS ORDERED: CEFTRIAXONE 1000 MG/VIAL ONE (07:48)
--- NOTE | 2021-07-07 07:55 | RAD REPORT ---
EXAM DESCRIPTION: CT - Chest For Pe Angio - 07/07/2021 7:37 am CLINICAL HISTORY: Fever/shortness of breath COMPARISON: None. TECHNIQUE: Dynamically enhanced axial 3 mm thick images of the chest were obtained during administra tion of <100> mL Isovue 370 IV contrast. Coronal and oblique reconstruction images were generated and reviewed. Exam utilizes a protocol for optimal evaluation of pulmonary arterial tree. Maximum intensity projections 3D imaging was utilized All CT scans are performed using dose optimization technique as appropriate and may include automated exposure control or mA/KV adjustment according to patient size. FINDINGS: A pulmonary embolus is not seen. A thoracic aortic aneurysm is not noted. A pleural effusion is not seen. A pericardial effusion is not seen. A lung consolidation is not present. Blebs are present within the upper lobes IMPRESSION: Negative for a pulmonary embolism.
[2021-07-07 08:15] LABS: Barbiturates NEGATIVE (NEGATIVE); Benzodiazepines POSITIVE (NEGATIVE); Cocaine NEGATIVE (NEGATIVE); METHAMPHETAM POSITIVE (NEGATIVE); Methadone NEGATIVE (NEGATIVE); Opiates POSITIVE (NEGATIVE); Phencyclidine NEGATIVE (NEGATIVE); THC Cannibis NEGATIVE (NEGATIVE)
[2021-07-07 08:26] LABS: Urine Bacteria LOADED /HPF (<20); Urine White Blood Cell Casts 0-5 /LPF (NONE SEEN)
--- NOTE | 2021-07-07 08:42 | EDPHYS ---
Physician Documentation [facility] Name: Krysten Gallegos Age: 40 yrs Sex: Female : 1980 Arrival Date: 07/07/2021 Time: 03:05 Bed 28 Private MD: ED Physician Song Liz HPI: 07/07 04:04 This 40 yrs old Female presents to ER via EMS with complaints of Erratic mh7 Behavior. 04:04 The patient presents to the emergency department with a history of substance abuse, mh7 Suspected, Erratic behavior. Onset: The symptoms/episode began/occurred today. Associated signs and symptoms: Pertinent positives; anxiety, Crying, Pertinent negatives: abdominal pain, chest pain, chills, delusions, depression, hallucinations, headache, homicidal ideation, nausea, night sweats, palpitations, paranoia, shortness of breath, suicide ideation, tremor, vomiting. Severity of symptoms: At their worst the symptoms were moderate today, in the emergency department the symptoms are unchanged. Patient brought in from long term by police to be arrested after she called about domestic disturbance and was found to have a warrant. Patient has displayed erratic behavior while in long term with appearance of anxiousness then crying at times. Police suspect intoxication with a low substance. Patient reports that she was recently released from another hospital for treatment for some infection.. 04:04 Patient found to have fever with temperature 103. She denies any pain, cough, headache, mh7 chest pain, abdominal pain, nausea, vomiting, shortness of breath, sore throat, dizziness, numbness/tingling, or weakness.. DIRECTOR EHS: 03:45 LMP N/A - Irregular menses cc4 Historical: - Allergies: 03:20 Sulfa (Sulfonamide Antibiotics); sj1 - PMHx: 03:20 Aneurysm; brain aneurysm; Hypertension; sj1 - PSHx: 03:20 Unable to Obtain; sj1 - Immunization history:: Client reports receiving the 2nd dose of the Covid vaccine. - Social history:: Smoking status: Patient reports the use of cigarette tobacco products, denies chronic smoking, but will smoke occasionally, Patient uses street drugs, heroin. - Code Status:: Full code. ROS: 04:04 Eyes: Negative for injury, pain, redness, and discharge, ENT: Negative for injury, mh7 pain, and discharge, Neck: Negative for injury, pain, and swelling, Cardiovascular: Negative for chest pain, palpitations, and edema, Respiratory: Negative for shortness of breath, cough, wheezing, and pleuritic chest pain, Abdomen/GI: Negative for abdominal pain, nausea, vomiting, diarrhea, and constipation, Back: Negative for injury and pain, : Negative for injury, bleeding, discharge, and swelling, MS/Extremity: Negative for injury and deformity, Skin: Negative for injury, rash, and discoloration, Neuro: Negative for headache, weakness, numbness, tingling, and seizure. 04:04 Allergy/Immunology: Negative for hives, rash, and allergies, Endocrine: Negative for neck swelling, polydipsia, polyuria, polyphagia, and marked weight changes, Hematologic/Lymphatic: Negative for swollen nodes, abnormal bleeding, and unusual bruising. 04:04 Psych: Negative for depression, alcohol dependence, auditory hallucinations, visual hallucinations, homicidal ideation, insomnia, suicide gesture, suicidal ideation. Exam: 04:04 Head/Face: Normocephalic, atraumatic. Eyes: Pupils equal round and reactive to light, mh7 extra-ocular motions intact. Lids and lashes normal. Conjunctiva and sclera are non-icteric and not injected. Cornea within normal limits. Periorbital areas with no swelling, redness, or edema. Neck: Trachea midline, no thyromegaly or masses palpated, and no cervical lymphadenopathy. Supple, full range of motion without nuchal rigidity, or vertebral point tenderness. No Meningismus. Chest/axilla: Normal chest wall appearance and motion. Nontender with no deformity. No lesions are appreciated. 04:04 Respiratory: Lungs have equal breath sounds bilaterally, clear to auscultation and percussion. No rales, rhonchi or wheezes noted. No increased work of breathing, no retractions or nasal flaring. Abdomen/GI: Soft, non-tender, with normal bowel sounds. No distension or tympany. No guarding or rebound. No evidence of tenderness throughout. Back: No spinal tenderness. No costovertebral tenderness. Full range of motion. Skin: Warm, dry with normal turgor. Normal color with no rashes, no lesions, and no evidence of cellulitis. MS/ Extremity: Pulses equal, no cyanosis. Neurovascular intact. Full, normal range of motion. Neuro: Awake and alert, GCS 15, oriented to person, place, time, and situation. Cranial nerves II-XII grossly intact. Motor strength 5/5 in all extremities. Sensory grossly intact. Cerebellar exam normal. Normal gait. 04:04 Constitutional: The patient appears in no acute distress, alert, awake, anxious, restless. 04:04 Cardiovascular: Rate: tachycardic, Rhythm: regular, Pulses: no pulse deficits are appreciated, Heart sounds: normal, normal S1and S2, Edema: is not appreciated, JVD: is not appreciated. 04:04 Psych: Behavior/mood is anxious, Affect is animated, Oriented to person, place, time, Patient has no thoughts/intents to harm self or others. Judgement / Insight is normal. Memory is normal. Delusions/hallucinations are not present. Vital Signs: 03:11 BP 126 / 98; Pulse 141; Resp 24; Temp 103.1(O); Pulse Ox 95% on R/A; sj1 03:15 BP 140 / 119; Pulse 143; Resp 20; Pulse Ox 95% on R/A; sj1 03:16 BP 126 / 98; Pulse 151; Resp 27; Temp 103.1(O); Pulse Ox 95% on R/A; Weight 66.22 kg [facility] (R); Height 5 ft. 2 in. (157.48 cm); Pain 5/10; 03:45 BP 122 / 70; Pulse 121; Resp 22; Pulse Ox 95% on R/A; sj1 04:15 BP 126 / 85; Pulse 60; Resp 20; Pulse Ox 94% on R/A; sj1 04:30 BP 123 / 96; Pulse 122; Resp 22; Pulse Ox 94% on R/A; cc4 05:00 BP 117 / 80; Pulse 114; Resp 20; Temp 99.9(O); Pulse Ox 96% ; cc4 05:30 BP 104 / 62; Pulse 113; Resp 18; Pulse Ox 95% on R/A; cc4 06:00 BP 96 / 64; Pulse 111; Resp 18; Temp 98.4(O); Pulse Ox 100% on R/A; cc4 06:48 BP 114 / 80; Pulse 98; Resp 20; Pulse Ox 96% ; cc4 03:16 Body Mass Index 26.70 (66.22 kg, 157.48 cm) sj1 MDM: 07:04 Patient medically screened. jr8 08:40 Data reviewed: vital signs, nurses notes, lab test result(s), EKG, radiologic studies, jr8 CT scan, plain films. Data interpreted: Pulse oximetry: on room air is 96 %. Interpretation: normal. Counseling: I had a detailed discussion with the patient and/or guardian regarding: the historical points, exam findings, and any diagnostic results supporting the discharge/admit diagnosis, lab results, radiology results, the need for outpatient follow up, a family practitioner, to return to the emergency department if symptoms worsen or persist or if there are any questions or concerns that arise at home. 08:40 ED course: Discussed with patient that she was positive for several substances. That jr8 she also has a urinary tract infection that she needs to be treated with antibiotics for. She needs to follow-up with her primary care. Counseling giving about drug abuse as well. Discussed with patient that if she were to worsen at any point time to come back for further evaluation. Patient no plan at this time.. 07/07 03:49 Order name: Amylase, Serum; Complete Time: 04:53 mh7 07/07 03:49 Order name: Basic Metabolic Panel; Complete Time: 04:53 mh7 07/07 03:49 Order name: Blood Culture Adult (2) 07/07 03:49 Order name: CBC with Diff; Complete Time: 04:53 mh7 07/07 03:49 Order name: CPK; Complete Time: 04:53 mh7 07/07 03:49 Order name: Ckmb; Complete Time: 04:53 mh7 07/07 03:49 Order name: LFT's; Complete Time: 04:53 mh7 07/07 03:49 Order name: Lactate; Complete Time: 06:45 mh7 07/07 03:49 Order name: Lipase; Complete Time: 04:53 mh7 07/07 03:49 Order name: Procalcitonin; Complete Time: 05:33 mh7 07/07 03:49 Order name: Protime (+inr); Complete Time: 04:53 mh7 07/07 03:49 Order name: Ptt, Activated; Complete Time: 04:53 mh7 07/07 03:49 Order name: Troponin (emerg Dept Use Only); Complete Time: 04:53 mh7 07/07 03:49 Order name: Urine Microscopic Only; Complete Time: 08:38 [facility] 07/07 03:49 Order name: Chest Single View XRAY; Complete Time: 07:41 [facility] 07/07 03:51 Order name: UDS [facility] 07/07 03:51 Order name: ETOH Level [facility] 07/07 03:52 Order name: Urine Drug Screen; Complete Time: 08:38 [facility] 07/07 03:52 Order name: Alcohol Serum/Plasma; Complete Time: 04:53 [facility] 07/07 05:32 Order name: CT Head Brain wo Cont; Complete Time: 08:38 [facility] 07/07 05:35 Order name: CT Chest For PE Angio; Complete Time: 08:38 [facility] 07/07 05:37 Order name: SARS-COV-2 RT PCR; Complete Time: 06:45 [facility] 07/07 06:51 Order name: Acetaminophen [facility] 07/07 06:51 Order name: Salicylate [facility] 07/07 07:10 Order name: Urine Dipstick-Ancillary; Complete Time: 07:16 [facility] 07/07 07:13 Order name: Urine --Ancillary (enter results) bd 07/07 08:28 Order name: Urine Culture [facility] 07/07 03:49 Order name: Cardiac monitoring; Complete Time: 04:24 [facility] 07/07 03:49 Order name: EKG - Nurse/Tech; Complete Time: 09:42 [facility] 07/07 03:49 Order name: IV Saline Lock - Large Bore; Complete Time: 04:24 [facility] 07/07 03:49 Order name: Labs collected and sent; Complete Time: 04:24 [facility] 07/07 03:49 Order name: O2 Per Protocol; Complete Time: 09:33 [facility] 07/07 03:49 Order name: O2 Sat Monitoring; Complete Time: 03:53 [facility] 07/07 03:49 Order name: Urine Dipstick-Ancillary (obtain specimen); Complete Time: 09:33 [facility] 07/07 03:49 Order name: Urine Test (obtain specimen); Complete Time: 09:33 [facility] Administered Medications: 03:40 Drug: Tylenol 1000 mg Route: PO; sj1 07:21 Follow up: Response: Temperature is decreased ch5 03:58 Drug: NS 0.9% (30 ml/kg) 30 ml/kg Route: IV; Rate: bolus; Site: left antecubital; sj1 07:21 Follow up: IV Status: Completed infusion [facility] 03:58 Drug: Cefepime 1 grams Route: IVPB; Rate: 200 ml/hr; Infused Over: 30 mins; Site: left sj1 antecubital; 07:21 Drug: NS 0.9% 1000 ml Route: IV; Rate: 1000 ml; Site: left antecubital; [facility] 07:27 Drug: Rocephin (cefTRIAXone) 1 grams Route: IV; Rate: calculated rate; Site: left 5 antecubital; Disposition Summary: 07/07/21 08:41 Discharge Ordered Location: Home jr8 Problem: new jr8 Symptoms: have improved jr8 Condition: Stable jr8 Diagnosis - Acute cystitis jr8 - Drug abuse counseling and surveillance jr8 Followup: jr8 - With: Private Physician - When: 2 - 3 days - Reason: Recheck today's complaints, Continuance of care, Re-evaluation by your physician Discharge Instructions: - Discharge Summary Sheet jr8 - Urinary Tract Infection, Adult jr8 - Illegal Drug Use Information, Adult jr8 Forms: - Medication Reconciliation Form jr8 - Thank You Letter jr8 - Antibiotic Education jr8 - Prescription Opioid Use jr8 Prescriptions: - Macrobid 100 mg Oral Capsule - take 1 capsule by ORAL route every 12 hours for 7 days; 14 capsule; Refills: 0, jr8 Product Selection Permitted Signatures: Dispatcher [employer] EDMS Antonino Horton PA PA jr8 Song Liz MD MD 7 Brian Watt RN RN ch5 Delma Mijares RN RN cc4 Raquel Polk RN RN sj1 Corrections: (The following items were deleted from the chart) 04:03 04:02 This 40 yrs old Female presents to ER via EMS with complaints of mh7 Fever.. mh7 05:29 03:49 Accucheck ordered. jessica cc4
--- NOTE | 2021-07-07 08:42 | ER ---
Nurse's Notes [facility] Name: Krysten Gallegos Age: 40 yrs Sex: Female : 1980 Arrival Date: 07/07/2021 Time: 03:05 Bed 28 Private MD: Diagnosis: Acute cystitis;Drug abuse counseling and surveillance Presentation: 07/07 03:16 Chief complaint: Patient states: Brought in by EMS and PD from [facility] for HTN 150/100 and sj1 tachycardia 140's, erratic behavior, reports heroin use on Suboxone. Pt uncooperative upon arrival. Coronavirus screen: Vaccine status: Patient reports receiving the 2nd dose of the covid vaccine. Ebola Screen: No symptoms or risks identified at this time. Initial Sepsis Screen: Does the patient meet any 2 criteria? RR > 20 per min. Temp <36.0*C (96.8*F)) or > 38.3*C (100.9*F). HR > 90 bpm. Does the patient have a suspected source of infection? No. Patient's initial sepsis screen is negative. Onset of symptoms is unknown. 03:16 Method Of Arrival: EMS: [facility] 1 03:16 Acuity: SAMY 2 sj1 03:20 Risk Assessment: Do you want to hurt yourself or someone else? Patient reports no cc4 desire to harm self or others. Other: Denies wanting to harm self or others; denies any plan to harm self. Triage Assessment: 03:20 General: Appears uncomfortable, Behavior is agitated, crying. Pain: Denies pain. EENT: sj1 No deficits noted. Neuro: Level of Consciousness is awake, alert, Oriented to person, place, time, situation. Cardiovascular: Rhythm is sinus tachycardia. Respiratory: No deficits noted. GI: Reports nausea, vomiting. : Reports burning with urination. Derm: Skin. Musculoskeletal: No signs and/or symptoms reported regarding the musculoskeletal system. BONE GRINDER: 03:45 LMP N/A - Irregular menses cc4 Historical: - Allergies: 03:20 Sulfa (Sulfonamide Antibiotics); sj1 - PMHx: 03:20 Aneurysm; brain aneurysm; Hypertension; sj1 - PSHx: 03:20 Unable to Obtain; sj1 - Immunization history:: Client reports receiving the 2nd dose of the Covid vaccine. - Social history:: Smoking status: Patient reports the use of cigarette tobacco products, denies chronic smoking, but will smoke occasionally, Patient uses street drugs, heroin. - Code Status:: Full code. Screenin:20 Abuse screen: Denies threats or abuse. Nutritional screening: No deficits noted. cc4 Tuberculosis screening: No symptoms or risk factors identified. Fall Risk None identified. Assessment: 03:20 General: Appears unkempt, Hyperactive/restless behavior; appears maniac; very cc4 talkative; denies drug use.. Behavior is restless. Pain: Denies pain. Neuro: Level of Consciousness is awake, alert, Kiesha noted.. Oriented to person, place, situation, Pupils are Pupil Size: 4mm/reactive/equally. Cardiovascular: Rhythm is sinus tachycardia. Respiratory: Airway is patent Breath sounds are clear bilaterally. GI: No deficits noted. No signs and/or symptoms were reported involving the gastrointestinal system. Abdomen is obese, Bowel sounds present X 4 quads. Abd is soft and non tender. : No signs and/or symptoms were reported regarding the genitourinary system. Reports recentlt treated for UTI. EENT: No deficits noted. Sclera/Cornea are clear in outer aspect of conjuctiva of right eye, inner aspect of conjuctiva of right eye, outer aspect of conjuctiva of left eye and inner aspect of conjunctiva of left eye Nares are clear Oral mucosa is dry. Derm: generalized scabbed lesions noted. Musculoskeletal: No deficits noted. Capillary refill < 3 seconds, Range of motion: intact in all extremities, Moving frequently in bed; restless. 03:58 Reassessment: No changes from previously documented assessment. IV NS started left AC cc4 saline lock with cefapime 1 g IVPB \\T\\ 200ml/hr/pump; refuses 2nd IV access. 04:28 Reassessment: No changes from previously documented assessment. IVPB cefapime complete; cc4 IV NS infusing \\T\\ 999 ml/hr/pump with no s/sx's of infection/infiltration; remains restless/tachycardiac; voices no c/o pain; no change in neuro status. 05:00 Reassessment: Remains restless; drinking water; reports inability to urinate APT; cc4 refuses in \\T\\ out cath; temp decreased to 99.9 F; remains tachycardic/restless. 05:30 Reassessment: Sleeping; NAD. cc4 09:42 Reassessment: Patient appears in no apparent distress at this time. Patient and/or ss family updated on plan of care and expected duration. Pain level reassessed. Patient is alert, oriented x 3, equal unlabored respirations, skin warm/dry/pink. Pt is grateful for care received. Has verbalized understanding follow up instructions, as well as [facility] officer at bedside. Offered wheelchair upon discharge. Patient politely declined offer. Vital Signs: 03:11 BP 126 / 98; Pulse 141; Resp 24; Temp 103.1(O); Pulse Ox 95% on R/A; sj1 03:15 BP 140 / 119; Pulse 143; Resp 20; Pulse Ox 95% on R/A; sj1 03:16 BP 126 / 98; Pulse 151; Resp 27; Temp 103.1(O); Pulse Ox 95% on R/A; Weight 66.22 kg [facility] (R); Height 5 ft. 2 in. (157.48 cm); Pain 5/10; 03:45 BP 122 / 70; Pulse 121; Resp 22; Pulse Ox 95% on R/A; sj1 04:15 BP 126 / 85; Pulse 60; Resp 20; Pulse Ox 94% on R/A; sj1 04:30 BP 123 / 96; Pulse 122; Resp 22; Pulse Ox 94% on R/A; cc4 05:00 BP 117 / 80; Pulse 114; Resp 20; Temp 99.9(O); Pulse Ox 96% ; cc4 05:30 BP 104 / 62; Pulse 113; Resp 18; Pulse Ox 95% on R/A; cc4 06:00 BP 96 / 64; Pulse 111; Resp 18; Temp 98.4(O); Pulse Ox 100% on R/A; cc4 06:48 BP 114 / 80; Pulse 98; Resp 20; Pulse Ox 96% ; cc4 03:16 Body Mass Index 26.70 (66.22 kg, 157.48 cm) [facility] ED Course: 03:05 Patient arrived in ED. tt3 03:07 Song Liz MD is Attending Physician. 7 03:19 Triage completed. sj1 03:20 Arm band placed on right wrist. sj1 03:20 Patient has correct armband on for positive identification. Bed in low position. Call cc4 light in reach. Side rails up X2. 03:25 by ED staff, sent to lab. EKG done, by ED staff. Inserted saline lock: 20 gauge in left cc4 antecubital area, using aseptic technique. 03:51 Raquel Polk, RN is Primary Nurse. sj1 03:53 LFT's Sent. sj1 03:53 Ckmb Sent. sj1 03:53 CPK Sent. sj1 03:53 Blood Culture Adult (2) Sent. sj1 03:53 Basic Metabolic Panel Sent. sj1 03:53 Amylase, Serum Sent. sj1 04:23 Chest Single View XRAY Sent. sj1 04:23 X-ray(s) taken. dc2 04:24 Blood Culture Adult (2) Sent. sj1 04:25 Lactate Sent. sj1 04:25 Procalcitonin Sent. sj1 04:25 Protime (+inr) Sent. sj1 04:25 Ptt, Activated Sent. sj1 04:37 Chest Single View XRAY In Process Unspecified. EDMS 06:23 COVID-19 (Coronavirus) Document "Date of Onset" if Symptomatic Sent. cc4 06:23 SARS-COV-2 RT PCR Sent. cc4 07:04 Antonino Horton PA is PHCP. jr8 07:36 CT Head Brain wo Cont In Process Unspecified. EDMS 07:37 CT Chest For PE Angio In Process Unspecified. EDMS 09:42 No provider procedures requiring assistance completed. IV discontinued, intact, ss bleeding controlled, No redness/swelling at site. Pressure dressing applied. Administered Medications: 03:40 Drug: Tylenol 1000 mg Route: PO; sj1 07:21 Follow up: Response: Temperature is decreased ch5 03:58 Drug: NS 0.9% (30 ml/kg) 30 ml/kg Route: IV; Rate: bolus; Site: left antecubital; sj1 07:21 Follow up: IV Status: Completed infusion ch5 03:58 Drug: Cefepime 1 grams Route: IVPB; Rate: 200 ml/hr; Infused Over: 30 mins; Site: left sj1 antecubital; 07:21 Drug: NS 0.9% 1000 ml Route: IV; Rate: 1000 ml; Site: left antecubital; ch5 07:27 Drug: Rocephin (cefTRIAXone) 1 grams Route: IV; Rate: calculated rate; Site: left ch5 antecubital; Outcome: 08:41 Discharge ordered by MD. camilo 09:42 Discharged to Law Enforcement ss 09:42 Condition: good 09:42 Discharge instructions given to patient, police, Instructed on discharge instructions, follow up and referral plans. medication usage, Demonstrated understanding of instructions, follow-up care, medications, Prescriptions given X 1. 09:43 Patient left the ED. ss Signatures: Dispatcher [employer] EDMS Paris Bowers RN RN Antonino Horton PA PA jr8 Song Liz MD MD mh7 Jaxson Lawson 3 Brian Watt RN RN ch5 Delma Mijares RN RN cc4 Mary Hendrix RN RN dc2 Raquel Pokl RN RN sj1 Corrections: (The following items were deleted from the chart) 06:01 05:30 BP 117 / 80; Pulse 114bpm; Resp 20bpm; Pulse Ox 96%; Temp 99.9F Oral; cc4 cc4
[2021-07-07 10:19] VITALS: TEMP 98.4
[2021-07-07 10:20] VITALS: BP 114/80; O2SAT 96
[2021-07-07 15:47] LABS: Urine Specific Gravity/Preg >1.030 (1.005-1.030)
== END 2021-07-07 09:43 | disposition home or self-care (01) ==
LOC: ER 03:03
DX: N30.00 Acute cystitis without hematuria (principal); Z71.51 Drug abuse counseling and surveillance of drug abuser; I10 Essential (primary) hypertension; Z20.822 Contact with and (suspected) exposure to COVID-19; Z88.2 Allergy status to sulfonamides
CPT/HCPCS: 93005; 87040 ×2; 87088; 85025; 87086; 80048; 36415; 80320; 82150; 82550; 81025; 85610; 80076; 83605; 85730; 84484; 82553; 83690; 84145; 80307; 70450; 71275; 71045; U0003; Q9967; J7030 ×2; J0692; 81003; 81015

== ENCOUNTER 2022-03-09 20:26 | Emergency (ER) | payer OTHER, SELFPAY ==
--- OUTSIDE RECORDS SUMMARY | 2022-03-09 20:30 | XMS REPORT | Continuity of Care Document ---
:1980 Author Organization [facility] t Address [address] [place] [address] Care Team Providers Name Role Phone DEJA Attending Clinician Unavailable Payers Payer Name Policy Type Policy Number Effective Date Expiration Date Jorgito JARAMILLO [id number] 2020 00:00:00 Problems This patient has no known problems. Allergies, Adverse Reactions, Alerts Allergy Allergy Status Severity Reaction(s) Onset Inactive Treating Comm ents Source Name Type Date Date Clinician SULFA Allergy Active [facility] (SULFONA 9-16 MIDE 00:00: ANTIBIOT 00 ICS) Medications This patient has no known medications. Procedures This patient has no known procedures. Encounters Start End Encounter Admission Attending Care Care Encounter Source Date/Time Date/Time Type Type Clinicians Facility Department ID 2021-02-08 2021-02-08 Outpatient WAYLON SHORT [facility] [id number] [facility] 00:00:00 00:00:00 GABRIELLA 2021-02-08 2021-02-08 Outpatient [facility] [id number] [facility] 00:00:00 00:00:00 2021-01-29 2021-01-29 Outpatient DEJA [facility] [id number] [facility] 00:00:00 00:00:00 GABRIELLA 2021-01-29 2021-01-29 [id number] 00:00:00 00:00:00 GABRIELLA Results Test Description Test Time Test Comments Results Result Comments Source CULTURE, URINE 2022-03-09 SPECIMEN NUMBER: 10:05:04 [id number] CULTURE, URINE SPECIMEN NUMBER: [id number] SPECIMEN COMMENT: URINE SOURCE: URINE REPORT STATUS: FINAL ISOLATE NUMBER 1: ORGANISM: 03/05/2022 >100,000 CFU/ML STAPHYLOCOCCUS SPECIES IDENTIFICATION: 03/09/2022 STAPHYLOCOCCUS AUREUS STAPH. AUREUS AMOXI CILLIN/CA SENSITIVE <=4/2CEFAZOLIN SENSITIVE <=4NITROFURANTOIN SENSITIVE <=32OXACILLIN SENSITIVE <=0.25RIFAMPIN SENSITIVE <=1TETRACYCLINE SENSITIVE <=1TRIMETH/SULFA SENSITIVE *1 Note 1: <=0.5/9.5VANCOMYCIN SENSITIVE 1 NOTE: NUMBERS DISPLAYED REPRESENT MINIMUM INHIBITORY CONCENTRATION (IFEANYI) WHICH IS EXPRESSED IN MCG/ML. UNLESS OTHERWISE INDICATED, ALL TESTING PERFORMED [email or web address] [address] [place] [address] DREDGE RUNNER: EARLE MONTAGUE M.D. [place] NUMBER [id number] [facility] [place]. [id number] HIV 1/2 4TH GEN, RFLX CONF 2022-03-09 07:17:41 Test Item Value Reference Range Interpretation Comme nts HIV 1/2 4TH GEN, RFLX CONF (test code = 3514) NON-REACTIVE NON-REAC TIVE HEPATITIS PANEL, [id number] 07:17:41 Test Item Value Reference Range Interpretation Comments HEPATITIS A IgM (test NON-REACTIVE NON-REACTIVE code = 09904) HEPATITIS B CORE IgM NON-REACTIVE NON-REACTIVE (test code = 4644) HEPATITIS B SURF AG REACTIVE NON-REACTIVE H (test code = 2739) HBSAG CONFIRMATION CONFIRMED NON-REACTIVE A TEST (test code = REACTIVE 2741) HEPATITIS C ANTIBODY REACTIVE NON-REACTIVE A (test code = 4675) INTERPRETATION (NOTE) Hepatiti s A HEPATITIS A: (test serology shows no code = 2552) evidence of acu te hepatitis A. INTERPRETATION (NOTE) Hepatiti s B HEPATITIS B: (test serology consistent code = 77521) with either ea rly acute hepatitis B (less than 6-12 weeks from init ial exposure) or chronic hepatit is Binfection (usu ally beyond 28-36 we eks after infection ). Hepatitis Bcore total antibody, hepatitis Be antigen and antibody may beinformative. Patient should be considered contagious at t his time. INTERPRETATION (NOTE) Hepatiti s C HEPATITIS C: (test serology is code = 42260) consistent wit h exposure to hepatitis Cviru s. The CDC recomme nds performing a supplemental confirmatory te ston initial positiv e hepatitis C antibody tests. HCV PCR quantitativecan be used to confirm these results o n a new sample (See MMWR, 2003;52 RR-3). UNLESS OTHERWIS E INDICATED, ALL TESTING PERFORM [facility] [place] [address] [facility], [place] [address] LABORATOR Y DIRECTOR: EARLE MONTAGUE M.D. [place] NUMBER [id number] CAP ACCREDITATION N O. [id number] COMPREHENSIVE METABOLIC [id number] 05:18:29 Test Item Value Reference Range Interpretation Comments GLUCOSE (test code = 110 MG/DL 70-99 H 2216) BUN (test code = 11 MG/DL 6-20 2207) CREATININE (test 0.61 MG/DL 0.60-1.30 code = 221) eGFR (2020 CKD-EPI) 114 >60 (test code = 27615) ML/MIN/1.73 CALC BUN/CREAT (test 18 RATIO 6-28 code = 2235) SODIUM (test code = 137 MEQ/L 626-760 2837) POTASSIUM (test code 3.5 MEQ/L 3.5-5.4 = 2227) CHLORIDE (test code 99 MEQ/L 95-107 = 2214) CARBON DIOXIDE (test 25 MEQ/L 19-31 code = 2206) CALCIUM (test code = 9.2 MG/DL 8.5-10.5 2208) PROTEIN, TOTAL (test 6.6 G/DL 6.1-8.3 code = 2229) ALBUMIN (test code = 4.2 G/DL 3.5-5.2 2200) CALC GLOBULIN (test 2.4 G/DL 1.9-3.7 code = 2240) CALC A/G RATIO (test 1.8 RATIO 1.0-2.6 code = 2234) BILIRUBIN, TOTAL 0.6 MG/DL See_Comment [Automated message] (test code = 2207) The syste m which generated this result transmit benny reference range : <=1.2. The refe rence range was not u sed to interpret th is result as normal/abnormal . ALKALINE PHOSPHATASE 69 U/L 40-113 (test code = 2204) AST (test code = 22 U/L 9-40 2217) ALT (test code = 14 U/L 5-40 2218) LIPID [id number] 05:18:29 Test Item Value Reference Range Interpretation Comments CHOLESTEROL (test 115 MG/DL <200 code = 2210) TRIGLYCERIDES (test 54 MG/DL <150 code = 2232) HDL CHOLESTEROL (test 56 MG/DL >39 code = 2220) CALC LDL CHOL (test 46 MG/DL <100 NOTE: C ALCULATED LDL code = 2237) IS BASED ON RONALDO-ROCK METHOD WHICHINCLUDES ADJUSTABLE TRIGLYCERIDE:VL DL CHOLESTEROL RAT IO.THIS FACTOR VARIES B Y MEASURED TRIGLY CERIDE AND NON-HDLCHOL ESTEROL CONCENTRATIONS WITH INCREASED CALCU LATED LDL SEENIN HIGH ER TRIGLYCERIDE OR LOWER NON-HDL SPECIME NS. FOR MOREINFORMATION , SEE CLIENT ANNOUNCE MENT AT [email or web address] [email or web address] RATIO LDL/HDL 0.82 RATIO <3.22 (test code = 2237) HEMOGLOBIN [id number] 03:44:56 Test Item Value Reference Range Interpretation Comments HEMOGLOBIN A1c (test code = 68358) 4.7 % 4.2-5.6 CBC W/AUTO DIFF WITH [id number] 03:06:01 Test Item Value Reference Range Interpretation Comments WBC (test code = 4.6 K/UL 3.5-11.0 1001) RBC (test code = 4.07 M/UL 3.80-5.40 1002) HEMOGLOBIN (test code 12.0 G/DL 11.5-15.5 = 1003) HEMATOCRIT (test code 35.1 % 34.0-45.0 = 1004) MCV (test code = 86.2 fL 80.0-99.0 1005) MCH (test code = 29.5 PG 25.0-33.0 1006) MCHC (test code = 34.2 G/DL 31.0-36.0 1007) RDW (test code = 13.3 % 11.5-15.0 1038) NEUTROPHILS (test 62.5 % code = 1008) LYMPHOCYTES (test 27.5 % code = 1010) MONOCYTES (test code 7.6 % = 1011) EOSINOPHILS (test 2.0 % code = 1012) BASOPHILS (test code 0.2 % = 1013) IMMATURE GRANULOCYTES 0.2 % (test code = 1036) NUCLEATED RBCS (test 0.0 /100 See_Comment [Autom ated code = 1065) WBC'S message] The sy stem which generated this result transmitted reference range : 0.0. The refere nce range was not u sed to interpret th is result as normal/abnormal . PLATELET COUNT (test 243 K/UL 130-400 code = 1015) ABSOLUTE NEUTROPHILS 2.87 K/UL 1.50-7.50 (test code = 1066) ABSOLUTE LYMPHOCYTES 1.26 K/UL 1.00-4.00 (test code = 1067) ABSOLUTE MONOCYTES 0.35 K/UL 0.20-1.00 (test code = 1068) ABSOLUTE EOSINOPHILS 0.09 K/UL 0.00-0.50 (test code = 1040) ABSOLUTE BASOPHILS 0.01 K/UL 0.00-0.20 (test code = 1069) ABS IMMATURE 0.01 K/UL 0.00-0.10 GRANULOCYTES (test code = 1020) ABS NUCLEATED RBCS 0.00 K/UL 0.00-0.11 (test code = 11399) CT, CTANGIO [id number] 08:42:00Unlisted Reason for Exam - Click Yes and Enter Reason Below->YesUnlisted Reason for Exam->[facility] : 1980 Sex: FFINAL REPORT CT, CAROTID, ANGIO, CT, CTANGIO BRAIN HISTORY: Cerebral aneurysm COMPARISON: None. TECHNIQUE: CTA of the head and neck was performed with intravenousiodine based contrast. Coronal, sagittal, 3-D, and oblique maximum intensity projection reformationswere created. A noncontrast head CT was also obtained. One or more of the following dose reduction techniques were used: Automated exposure control, adjustment of the mA and/or kV according to patient size, and/or utilization of iterative reconstruction technique. DISCUSSION:If present, any cervical carotid stenosis will be measured as a percentage relative to the [place] artery distal to the stenosis(NASCET). CERVICAL CTA: Right Carotid: Patent, no abnormalities. The cervical right internal carotid artery is tortuous.Left Carotid: Patent, no abnormalities. Right vertebral artery: Patent, no abnormalities. Left vertebral artery: Patent, no abnormalities. INTRACRANIAL CTA: Carotid arteries:Minimal subtle bilateral carotid siphon calcification without stenosis.No abnormalities in the A1 or M1 segments. Vertebrobasilar Circulation: Right vertebral artery: Patent, no abnormalities. Left vertebral artery: Patent, no abnormalities. Basilar artery: Patent, no abnormalities. Posterior cerebral arteries: Patent, no abnormalities. Normal Variants:ACom: Patent.PComs: Patent.Vertebral arteries: Right dominant. The major dural venous sinuses are grossly patent. Additional findings: There are no acute intracranial abnormalities. The right maxillary sinus is opacified with mild surrounding sclerosis, which suggests chronic inflammation. Mild left maxillary sinus mucosal thickening is present aswell. There are paraseptal emphysematous changes at the lung apices. There are mild degenerative changes throughout the spine. IMPRESSION:1.Minimal subtle bilateral carotid siphon calcification withoutstenosis.2.No other intracranial or neck CTA abnormalities. Specifically, no evidence for aneurysm. Signed: Solitario Mahan MDRgabriela Verified Date/Time: 02/09/2021 08:42:54 Reading Location: [facility] Reading Room [address] [place] [address] [facility], CAROTID, [id number] 08:42:00Unlisted Reason for Exam - Click Yes and Enter Reason Below->YesUnlisted Reason for Exam->[facility] : 1980 Sex: FFINAL REPORT CT, CAROTID, ANGIO, CT, CTANGIO BRAIN HISTORY: Cerebral aneurysm COMPARISON: None. TECHNIQUE: CTA of the head and neck was performed with intravenousiodine based contrast. Coronal, sagittal, 3-D, and oblique maximum intensity projection reformationswere created. A noncontrast head CT was also obtained. One or more of the following dose reduction techniques were used: Automated exposure control, adjustment of the mA and/or kV according to patient size, and/or utilization of iterative reconstruction technique. DISCUSSION:If present, any cervical carotid stenosis will be measured as a percentage relative to the [place] artery distal to the stenosis(NASCET). CERVICAL CTA: Right Carotid: Patent, no abnormalities. The cervical right internal carotid artery is tortuous.Left Carotid: Patent, no abnormalities. Right vertebral artery: Patent, no abnormalities. Left vertebral artery: Patent, no abnormalities. INTRACRANIAL CTA: Carotid arteries:Minimal subtle bilateral carotid siphon calcification without stenosis.No abnormalities in the A1 or M1 segments. Vertebrobasilar Circulation: Right vertebral artery: Patent, no abnormalities. Left vertebral artery: Patent, no abnormalities. Basilar artery: Patent, no abnormalities. Posterior cerebral arteries: Patent, no abnormalities. Normal Variants:ACom: Patent.PComs: Patent.Vertebral arteries: Right dominant. The major dural venous sinuses are grossly patent. Additional findings: There are no acute intracranial abnormalities. The right maxillary sinus is opacified with mild surrounding sclerosis, which suggests chronic inflammation. Mild left maxillary sinus mucosal thickening is present aswell. There are paraseptal emphysematous changes at the lung apices. There are mild degenerative changes throughout the spine. IMPRESSION:1.Minimal subtle bilateral carotid siphon calcification withoutstenosis.2.No other intracranial or neck CTA abnormalities. Specifically, no evidence for aneurysm. Signed: Solitario Mahan MDReport Verified Date/Time: 02/09/2021 08:42:54 Reading Location: [facility] Reading Room [address] [place] [address]
[2022-03-09 22:54] LABS: Urine Glucose Negative (Negative); Urine Specific Gravity >=1.030 (1.005-1.030)
[2022-03-09 22:55] LABS: Urine Blood 2+ (Negative); Urine Protein 2+ (Negative)
[2022-03-09] MEDS ORDERED: MORPHINE 4 MG/ML SYR ONE (23:07)
[2022-03-09] MEDS ORDERED: CEFTRIAXONE 1000 MG/VIAL ONE (23:08)
[2022-03-09] MEDS ORDERED: NA CHLORIDE 0.9% 1,000 ML ONE (23:08)
[2022-03-09] MEDS ORDERED: ONDANSETRON 4 MG/2 ML VIAL ONE (23:08)
[2022-03-09] MEDS ORDERED: WATER FOR INJ,STERILE 10 ML ONE (23:12)
[2022-03-09 23:31] LABS: Absolute Lymphocytes (CBC) 1.6 K/uL (0.7-4.9); Hematocrit 38.1 % (36.0-45.0); Lymphocytes % 30.5 % (15.3-44.8); MPV 8.1 fL (7.6-11.3); RBC Red Blood Cell Count 4.38 M/uL (3.86-4.86)
[2022-03-09 23:39] LABS: Albumin 3.6 g/dL (3.4-5.0); Bilirubin Total 0.6 mg/dL (0.2-1.0); Potassium 3.2 mmol/L (3.5-5.1); Protein, Total 7.3 g/dL (6.4-8.2)
[2022-03-10 00:55] LABS: Urine Bacteria >50 /HPF (<20)
[2022-03-10 00:56] LABS: Urine Urothelial Cells <5 /HPF (NONE SEEN)
--- NOTE | 2022-03-10 02:04 | ER ---
Nurse's Notes [facility] Name: Krysten Gallegos Age: 41 yrs Sex: Female : 1980 Arrival Date: 03/09/2022 Time: 20:29 Bed 14 Private MD: Diagnosis: Constipation;Acute cystitis;Other cholelithiasis with obstruction;Right paraspinal musculature enhancement at L2-3 Presentation: 03/09 21:14 Chief complaint: Patient states: 3 days ago woke up with right flank pain, getting ke1 worse today with difficulty urinating. Coronavirus screen: Vaccine status: Patient reports receiving the 2nd dose of the covid vaccine. Ebola Screen: No symptoms or risks identified at this time. Initial Sepsis Screen: Does the patient meet any 2 criteria? No. Patient's initial sepsis screen is negative. Does the patient have a suspected source of infection? No. Patient's initial sepsis screen is negative. Risk Assessment: Do you want to hurt yourself or someone else? Patient reports no desire to harm self or others. Onset of symptoms was March 06, 2022. 21:14 Method Of Arrival: Ambulatory ke 21:14 Acuity: SAMY 3 ke1 Triage Assessment: 21:19 General: Appears uncomfortable, Behavior is appropriate for age. Pain: Complains of ke1 pain in right flank Pain radiates to to the left lower back Pain currently is 8 out of 10 on a pain scale. at worst was 10 out of 10 on a pain scale. level that patient reports is acceptable is 7 out of 10 on a pain scale. Quality of pain is described as stabbing. Pain: Aggravated by urinating. Neuro: Level of Consciousness is awake, alert, Oriented to person, place, time, situation. GI: Abdomen is round non-distended. Historical: - Allergies: 21:18 Sulfa (Sulfonamide Antibiotics); ke1 - PMHx: 21:18 Aneurysm; brain aneurysm; Hypertension; ke1 - Immunization history:: Last tetanus immunization: up to date. - Social history:: Smoking status: Patient reports the use of cigarette tobacco products, smokes one-half pack cigarettes per day. Screenin:22 Abuse screen: Denies threats or abuse. Nutritional screening: No deficits noted. ke1 Tuberculosis screening: No symptoms or risk factors identified. Fall Risk No fall in past 12 months (0 pts). No secondary diagnosis (0 pts). IV access (20 points). Ambulatory Aid- None/Bed Rest/Nurse Assist (0 pts). Gait- Normal/Bed Rest/Wheelchair (0 pts) Mental Status- Oriented to own ability (0 pts). Total Quintero Fall Scale indicates No Risk (0-24 pts). Assessment: 23:15 GI: Bowel sounds present X 4 quads. Abd is soft Abd is non tender. : ke1 23:45 Reassessment: Patient states feeling better. Patient states symptoms have improved. ke1 03/10 01:24 Reassessment: Patient appears in no apparent distress at this time. No changes from ke1 previously documented assessment. 02:06 Reassessment: Patient appears in no apparent distress at this time. No changes from ke1 previously documented assessment. Patient and/or family updated on plan of care and expected duration. Pain level reassessed. Patient states feeling better. Patient states symptoms have improved. 02:11 Reassessment: TOY ASSEMBLY SUPERVISOR advised patient to stay in hospital for MRI in the morning but patient ke1 categorically refuse and wants to leave now . Maintenance Mechanic Helper explains to patient potential risks of leaving the hospital without the MRI but patient wants to leave anyway. Nurse also attempts to encourage patient to stay but patient is getting more annoyed and wants to leave. Vital Signs: 03/09 21:14 BP 121 / 88; Pulse 109; Resp 17; Temp 98.6(O); Pulse Ox 99% on R/A; Weight 62.6 kg; ke1 Height 5 ft. 1 in. (154.94 cm); Pain 8/10; 23:45 Pain 3/10; ke1 03/10 00:23 BP 130 / 96; Pulse 93; Resp 18; Pulse Ox 98% on R/A; ke1 01:25 BP 134 / 98; Pulse 89; Resp 17; Pulse Ox 98% ; ke1 03/09 21:14 Body Mass Index 26.07 (62.60 kg, 154.94 cm) ke1 ED Course: 03/09 20:29 Patient arrived in ED. as 21:14 Jose Hairston, KRISTOPHER is Primary Nurse. ke1 21:15 Gerald Rojas NP is PHCP. pm1 21:15 Robbi Ellsworht MD is Attending Physician. pm1 21:18 Triage completed. ke1 22:56 Inserted saline lock: 22 gauge in right antecubital area, using aseptic technique. By ke1 Renetta charge nurse. 23:15 Bed in low position. Call light in reach. ke1 03/10 00:25 CT Abd/Pelvis - IV Contrast Only In Process Unspecified. EDMS 00:28 Arm band placed on left wrist. ke1 02:06 No provider procedures requiring assistance completed. ke1 02:22 IV discontinued. ke1 02:31 US Abdomen Limited In Process Unspecified. EDMS Administered Medications: 03/09 23:12 Drug: NS 0.9% 1000 ml Route: IV; Rate: 1 bolus; Site: left antecubital; ke1 23:12 Drug: Zofran (Ondansetron) 4 mg Route: IVP; Site: left antecubital; ke1 23:30 Follow up: Response: Marked relief of symptoms ke1 23:12 Drug: Rocephin (cefTRIAXone) 1 grams Route: IV; Rate: calculated rate; Site: left ke1 antecubital; 23:15 Follow up: IV Status: Completed infusion ke1 03/10 00:00 Follow up: Response: No adverse reaction ke1 03/09 23:24 Drug: morphine 4 mg Route: IVP; Infused Over: 4 mins; Site: right antecubital; ke1 23:45 Follow up: Pain 11/25 Adult ke1 23:45 Follow up: Response: Marked relief of symptoms ke1 Medication: 03/10 02:21 VIS not applicable for this client. ke1 Outcome: 02:03 Discharge ordered by . pm1 02:21 Discharged to home ambulatory. ke1 02:21 Condition: good 02:21 Condition: stable 02:21 Discharge instructions given to patient. 02:22 Patient left the ED. ke1 Signatures: Dispatcher [employer] EDMS Adelina Lockwood Patrick, NP TOY ASSEMBLY SUPERVISOR pm1 Jose Hairston, RN RN ke1
--- NOTE | 2022-03-10 02:04 | EDPHYS ---
Physician Documentation [facility] Name: Krysten Gallegos Age: 41 yrs Sex: Female : 1980 Arrival Date: 03/09/2022 Time: 20:29 Bed 14 Private MD: ED Physician Robbi Ellsworth HPI: 03/09 21:30 This 41 yrs old Female presents to ER via Ambulatory with complaints of Flank Pain, pm1 Urinary Retention, Constipation. 21:30 The patient complains of pain in the right low back. The pain does not radiate. Onset: pm1 The symptoms/episode began/occurred 3 day(s) ago. Modifying factors: The symptoms are alleviated by nothing. the symptoms are aggravated by nothing. Associated signs and symptoms: Pertinent positives: dysuria, constipation, Pertinent negatives: fever. Severity of pain: in the emergency department the pain is actually worse. The patient has experienced similar episodes in the past, a few times, today's symptoms are similar, to previous UTI. The patient has not recently seen a physician. Historical: - Allergies: 21:18 Sulfa (Sulfonamide Antibiotics); ke1 - PMHx: 21:18 Aneurysm; brain aneurysm; Hypertension; ke1 - Immunization history:: Last tetanus immunization: up to date. - Social history:: Smoking status: Patient reports the use of cigarette tobacco products, smokes one-half pack cigarettes per day. ROS: 21:30 Constitutional: Negative for fever, chills, and weight loss, Cardiovascular: Negative pm1 for chest pain, palpitations, and edema, Respiratory: Negative for shortness of breath, cough, wheezing, and pleuritic chest pain. 21:30 Skin: Negative for injury, rash, and discoloration, Neuro: Negative for headache, weakness, numbness, tingling, and seizure. 21:30 Abdomen/GI: Positive for constipation, Negative for abdominal pain, nausea, vomiting, and diarrhea. 21:30 Back: Positive for flank pain, on the right. 21:30 : Positive for burning with urination. 21:30 All other systems are negative. Exam: 21:30 Constitutional: This is a well developed, well nourished patient who is awake, alert, pm1 and in no acute distress. Head/Face: Normocephalic, atraumatic. 21:30 Skin: Warm, dry with normal turgor. Normal color with no rashes, no lesions, and no evidence of cellulitis. MS/ Extremity: Pulses equal, no cyanosis. Neurovascular intact. Full, normal range of motion. 21:30 Cardiovascular: Exam negative for acute changes, Rate: normal, Rhythm: regular, Pulses: no pulse deficits are appreciated. 21:30 Respiratory: Exam negative for acute changes, respiratory distress, shortness of breath. 21:30 Abdomen/GI: Inspection: abdomen appears normal, Palpation: abdomen is soft and non-tender, in all quadrants. 21:30 Back: pain, that is moderate, of the right low back. 21:30 Neuro: Exam negative for acute changes, Orientation: is normal, Mentation: is normal, Motor: is normal, moves all fours. Vital Signs: 21:14 BP 121 / 88; Pulse 109; Resp 17; Temp 98.6(O); Pulse Ox 99% on R/A; Weight 62.6 kg; ke1 Height 5 ft. 1 in. (154.94 cm); Pain 8/10; 23:45 Pain 3/10; ke1 03/10 00:23 BP 130 / 96; Pulse 93; Resp 18; Pulse Ox 98% on R/A; ke1 01:25 BP 134 / 98; Pulse 89; Resp 17; Pulse Ox 98% ; ke1 03/09 21:14 Body Mass Index 26.07 (62.60 kg, 154.94 cm) ke1 MDM: 03/09 21:16 Patient medically screened. [facility] 22:55 Data reviewed: vital signs. Data interpreted: Pulse oximetry: on room air is 99 %. pm1 Interpretation: normal. 03/10 01:56 Differential diagnosis: pyelonephritis, UTI, cystitis, cholelithiasis, cholecystitis, pm1 paraspinal abscess, myositis. 01:57 Counseling: I had a detailed discussion with the patient and/or guardian regarding: the pm1 historical points, exam findings, and any diagnostic results supporting the discharge/admit diagnosis, lab results, radiology results, the need for further work-up and treatment in the hospital. 01:57 Refusal of service: The patient/guardian displays adequate decision making capability pm1 and despite a detailed discussion of alternatives, benefits, risks, and consequences refuses: Admission to the hospital for further work-up and treatment, MRI of lumbar spine. Patient wants to go home because she just got out of long term. She wants to follow up with her PCP or return to the ER if the symptoms get worse. 03/09 21:30 Order name: CBC with Diff; Complete Time: 23:35 pm1 03/09 21:30 Order name: CMP; Complete Time: 23:43 pm1 03/09 21:30 Order name: Lipase; Complete Time: 23:43 pm1 03/09 21:30 Order name: Urine Microscopic Only; Complete Time: 00:58 pm1 03/09 22:55 Order name: Urine Dipstick-Ancillary; Complete Time: 22:55 EDCT 03/09 21:30 Order name: CT Abd/Pelvis - IV Contrast Only pm1 03/09 21:30 Order name: IV Saline Lock; Complete Time: 22:58 pm1 03/10 00:59 Order name: Urine Culture [facility] 03/10 01:10 Order name: US Abdomen Limited pm1 03/09 21:30 Order name: Labs collected and sent; Complete Time: 22:58 pm1 03/09 21:30 Order name: Urine Dipstick-Ancillary (obtain specimen); Complete Time: 22:57 pm1 03/09 21:30 Order name: Urine Test (obtain specimen); Complete Time: 22:57 pm1 Administered Medications: 03/09 23:12 Drug: NS 0.9% 1000 ml Route: IV; Rate: 1 bolus; Site: left antecubital; ke1 23:12 Drug: Zofran (Ondansetron) 4 mg Route: IVP; Site: left antecubital; ke1 23:30 Follow up: Response: Marked relief of symptoms ke1 23:12 Drug: Rocephin (cefTRIAXone) 1 grams Route: IV; Rate: calculated rate; Site: left ke1 antecubital; 23:15 Follow up: IV Status: Completed infusion ke1 03/10 00:00 Follow up: Response: No adverse reaction ke03/09 23:24 Drug: morphine 4 mg Route: IVP; Infused Over: 4 mins; Site: right antecubital; ke1 23:45 Follow up: Pain 3/10 Adult ke1 23:45 Follow up: Response: Marked relief of symptoms ke1 Disposition Summary: 03/10/22 02:03 Discharge Ordered Location: Home pm1 Problem: new pm1 Symptoms: have improved pm1 Condition: Stable pm1 Diagnosis - Constipation pm1 - Acute cystitis pm1 - Other cholelithiasis with obstruction pm1 - Right paraspinal musculature enhancement at L2-3 pm1 Followup: pm1 - With: Emergency Department - When: As needed - Reason: Worsening of condition Followup: pm1 - With: Private Physician - When: 2 - 3 days - Reason: Recheck today's complaints, Continuance of care, Re-evaluation by your physician Discharge Instructions: - Discharge Summary Sheet pm1 - Constipation, Adult pm1 - Urinary Tract Infection, Adult pm1 - Cholelithiasis pm1 Forms: - Medication Reconciliation Form pm1 - Thank You Letter pm1 - Antibiotic Education pm1 - Prescription Opioid Use pm1 Prescriptions: - Cephalexin 500 mg Oral Capsule - take 1 capsule by ORAL route every 6 hours for 10 days; 40 capsule; Refills: 0, pm1 Product Selection Permitted - Doxycycline Hyclate 100 mg Oral Tablet - take 1 tablet by ORAL route every 12 hours; 20 tablet; Refills: 0, Product pm1 Selection Permitted - Lactulose 10 gram/15 mL Oral Solution - take 30 milliliters by ORAL route once daily; 300 milliliter; Refills: 0, pm1 Product Selection Permitted - Cyclobenzaprine 10 mg Oral Tablet - take 1 tablet by ORAL route every 8 hours As needed; 30 tablet; Refills: 0, pm1 Product Selection Permitted - Diclofenac Sodium 75 mg Oral Tablet Sustained Release - take 1 tablet by ORAL route 2 times per day; 30 tablet; Refills: 0, Product pm1 Selection Permitted Signatures: Dispatcher [employer] EDRobbi López MD MD cha Marinas, Patrick, PAPER CUP MACHINE TENDER PAPER CUP MACHINE TENDER pm1 Jose Hairston, RN RN ke1
[2022-03-10 03:00] VITALS: TEMP 98.7
[2022-03-10 03:07] VITALS: BP 125/72; O2SAT 99
--- NOTE | 2022-03-10 15:08 | RAD REPORT ---
EXAM DESCRIPTION: US - Abdomen Exam Limited - 03/10/2022 4:42 am COMPARISON: CT abdomen pelvis March 09, 2022 CLINICAL HISTORY: RUQ ultrasound as recommended by radiologist TECHNIQUE: Grayscale and color doppler images of the right upper quadrant are provided for evaluatio n. FINDINGS: Liver: The liver measures 15 cm. Parenchymal echogenicity is normal. The liver demonst rates a normal morphology. There is hepatopedal flow in the main portal vein. Biliary Tree: The gallbladder demonstrates sludge. Gallbladder wall thickness measures 1 mm. No intrahepatic biliary dilatation. The common bile duct measures 7 mm. Pancreas: The pancreatic head and body are normal. The tail is obscured by gas. Right kidney: Normal. Spleen: Normal. Abdominal cavity: There is no ascites. IMPRESSION: Gallbladder sludge without secondary signs of cholecystitis. Electronically signed by: Alex Jimenez MD 03/10/2022 3:33 AM CDT Due to temporary technical issues with the PACS/Fluency reporting system, reports are being signed by the in house radiologists without. review as a courtesy to insure prompt reporting. The interpreting radiologist is fully responsible for the content of the report
--- NOTE | 2022-03-10 15:11 | RAD REPORT ---
EXAM DESCRIPTION: CT - Abdomen Pelvis W Contrast - 03/10/2022 6:31 am ADDENDUM #1 ADDENDUM: 4. Bladder is decompressed with nodular wall thickening and mucosal enhancement. CORRELATE WITH URI NALYSIS FOR SIGNS OF CYSTITIS. THIS REPORT CONTAINS FINDINGS THAT MAY BE CRITICAL TO PATIENT'S CARE: The findings were verbally discussed via telephone conference with Gerald Rojas BREASTFEEDING PEER COUNSELOR by Dr. Tam on 03/10/2022 1:41 AM CDT. The results were acknowledged and understood. Electronically signed by: David Tam DO 03/10/2022 1:42 AM CDT End of Addendum EXAM DESCRIPTION: CT Abdomen and Pelvis With Intravenous Contrast CLINICAL HISTORY: The patient is 41 years old and is Female; flank pain TECHNIQUE: Axial computed tomography images of the abdomen and pelvis with intravenous contrast. S agittal and coronal reformatted images were created and reviewed. This CT exam was performed using one or more of the following dose reduction techniques: automated exposure control, adjustment of t he mA and/or kV according to patient size, and/or use of iterative reconstruction technique. DLP: 1016 mGy*cm COMPARISON: None. FINDINGS: LUNG BASES: Lung bases are clear. HEART: Visualized heart is normal. ABDOMEN: LIVER: See below. GALLBLADDER AND BILE DUCTS: Suggested biliary sludge. No pericholecystic fluid. Intra and extrahepa tic ductal dilatation. PANCREAS: Unremarkable. No mass. No ductal dilation. SPLEEN: Unremarkable. No splenomegaly. ADRENALS: Unremarkable. No mass. KIDNEYS AND URETERS: Unremarkable. No solid mass. No hydronephrosis. STOMACH AND BOWEL: Severe stool burden throughout the large bowel. No mucosal thickening. PELVIS: APPENDIX: The appendix is seen and is within normal limits. BLADDER: Bladder is decompressed with nodular wall thickening and mucosal enhancement. REPRODUCTIVE: Unremarkable as visualized. ABDOMEN and PELVIS: INTRAPERITONEAL SPACE: Unremarkable. No free air. No significant fluid collection. BONES/JOINTS: No acute fracture. No dislocation. SOFT TISSUES: Heterogenous enhancement of the right paraspinal musculature at the level of L2-3. VASCULATURE: Unremarkable. No abdominal aortic aneurysm. LYMPH NODES: Unremarkable. No enlarged lymph nodes. IMPRESSION: 1. Heterogenous enhancement of the right paraspinal musculature at the level of L2-3. Correlate for signs of infection. MRI lumbar spine with and without contrast is recommended. 2. Severe stool burden throughout the large bowel. Findings compatible with constipation. 3. Suggested biliary sludge. No pericholecystic fluid. Intra and extrahepatic ductal dilatation. Right upper quadrant ultrasound is recommended. 4. Bladder is decompressed with nodular wall thickening and mucosal enhancement. Cholelithiasis w ith superimposed infectious process. Electronically signed by: David Tam DO 03/10/2022 12:39 AM CDT Due to temporary technical issues with the PACS/Fluency reporting system, reports are being signed by the in house radiologists without. review as a courtesy to insure prompt reporting. The interpreting radiologist is fully responsible for the content of the report
== END 2022-03-10 02:22 | disposition home or self-care (01) ==
LOC: ER 20:26
DX: N30.00 Acute cystitis without hematuria (principal); K59.00 Constipation, unspecified; K80.81 Other cholelithiasis with obstruction; G95.9 Disease of spinal cord, unspecified; I10 Essential (primary) hypertension; F17.210 Nicotine dependence, cigarettes, uncomplicated; Z88.2 Allergy status to sulfonamides
CPT/HCPCS: 36415; 74177; 76705; 80053; 81003; 81015; 83690; 85025; 87086; 87088; 99283; J2405; J7030; Q9967

== ENCOUNTER 2022-03-15 12:28 | Emergency (ER) | payer SELFPAY ==
--- OUTSIDE RECORDS SUMMARY | 2022-03-15 12:31 | XMS REPORT | Continuity of Care Document ---
:1980 Author Organization [facility] t Address [address] [place] [address] Care Team Providers Name Role Phone DEJA Attending Clinician Unavailable Payers Payer Name Policy Type Policy Number Effective Date Expiration Date Jorgito JARAMILLO [id number] 2020 00:00:00 Problems This patient has no [...] Department ID 2021-02-08 2021-02-08 Outpatient WAYLON SHORT [facility] [id number] [facility] 00:00:00 00:00:00 GABRIELLA 2021-02-08 2021-02-08 Outpatient VIV[facility]E [facility] [id number] [id number] 00:00:00 00:00:00 2021-01-29 2021-01-29 [id number] 00:00:00 00:00:00 GABRIELLA 2021-01-29 2021-01-29 Outpatient WAYLON SHORT [facility] [id number] [facility] 00:00:00 00:00:00 GABRIELLA Results Test Description Test Time Test Comments Results Result Comments Source CULTURE, URINE 2022-03-09 SPECIMEN NUMBER: 10:05:04 [id number] CULTURE, URINE SPECIMEN NUMBER: [id number] SPECIMEN COMMENT: URINE SOURCE: URINE REPORT STATUS: FINAL ISOLATE NUMBER 1: ORGANISM: 03/05/2022 >100,000 CFU/ML STAPHYLOCOCCUS SPECIES IDENTIFICATION: 03/09/2022 STAPHYLOCOCCUS AUREUS STAPH. AUREUS AMOXI CILLIN/CA SENSITIVE <=4/2CEFAZOLIN SENSITIVE <=4NITROFURANTOIN SENSITIVE <=32OXACILLIN SENSITIVE <=0.25RIFAMPIN SENSITIVE <=1TETRACYCLINE SENSITIVE <=1TRIMETH/SULFA SENSITIVE *1 Note 1: <=0.5/9.5VANCOMYCIN SENSITIVE 1 NOTE: NUMBERS DISPLAYED REPRESENT MINIMUM INHIBITORY CONCENTRATION (IFEANYI) WHICH IS EXPRESSED IN MCG/ML. UNLESS OTHERWISE INDICATED, ALL TESTING PERFORMED [facility] [employer] [address] [place] [address] LAYER OFF: EARLE MONTAGUE M.D. [place] NUMBER [id number] [facility] [place]. [id number] HIV 1/2 4TH GEN, RFLX CONF 2022-03-09 07:17:41 Test Item Value Reference Range Interpretation Comme nts HIV 1/2 4TH GEN, RFLX CONF (test code = 3514) NON-REACTIVE NON-REAC TIVE HEPATITIS PANEL, [id number] 07:17:41 Test Item Value Reference Range Interpretation Comments HEPATITIS A IgM (test NON-REACTIVE NON-REACTIVE code = 57010) HEPATITIS B CORE IgM NON-REACTIVE NON-REACTIVE (test [...] HEPATITIS B: (test serology consistent code = 37632) with either ea rly acute hepatitis B (less than 6-12 weeks from init ial exposure) or chronic hepatit is Binfection (usu ally beyond 28-36 we eks after infection ). Hepatitis Bcore total antibody, hepatitis Be antigen and antibody may beinformative. Patient should be considered contagious at t his time. INTERPRETATION (NOTE) Hepatiti s C HEPATITIS C: (test serology is code = 83955) consistent wit h exposure to hepatitis Cviru s. The CDC recomme nds performing a supplemental confirmatory te ston initial positiv e hepatitis C antibody tests. HCV PCR quantitativecan be used to confirm these results o n a new sample (See MMWR, 2003;52 RR-3). UNLESS OTHERWIS E INDICATED, ALL TESTING PERFORM [facility] [place]. [address] [facility] [place] [address] LABORATOR Y DIRECTOR: EARLE MONTAGUE M.D. [place] NUMBER [id number] [facility] ACCREDITATION N O. [id number] COMPREHENSIVE METABOLIC [id number] 05:18:29 Test Item Value Reference Range Interpretation Comments GLUCOSE (test code = 110 MG/DL 70-99 H 2216) BUN (test code = 11 MG/DL 6-20 2207) CREATININE (test 0.61 MG/DL 0.60-1.30 code = 221) eGFR (2020 CKD-EPI) 114 >60 (test code = 20068) ML/MIN/1.73 CALC BUN/CREAT (test 18 RATIO 6-28 code = 2235) SODIUM (test code = 137 MEQ/L 526-773 7451) POTASSIUM (test code 3.5 MEQ/L 3.5-5.4 = [...] code = 14 U/L 5-40 2218) LIPID [id number] 05:18:29 Test Item Value Reference Range Interpretation [...] MOREINFORMATION , SEE CLIENT ANNOUNCE MENT AT [email or web address] RISK RATIO LDL/HDL 0.82 RATIO <3.22 (test code = 2237) HEMOGLOBIN [id number] 03:44:56 Test Item Value Reference Range Interpretation Comments HEMOGLOBIN A1c (test code = 12814) 4.7 % 4.2-5.6 CBC W/AUTO DIFF WITH [id number] 03:06:01 Test Item Value Reference Range Interpretation [...] RBCS 0.00 K/UL 0.00-0.11 (test code = 98206) CT, CAROTID, [id number] 08:42:00Unlisted Reason for Exam - Click Yes and Enter Reason Below->YesUnlisted Reason for Exam->[facility] 1980 Sex: FFINAL [...] measured as a percentage relative to the [place] artery distal to the stenosis(NASCET). CERVICAL CTA: [...] MDReport Verified Date/Time: 02/09/2021 08:42:54 Reading Location: [facility] Room [address] [place] [address] HOSPITAL, CTANGIO [id number] 08:42:00Unlisted Reason for Exam - Click Yes and Enter Reason Below->YesUnlisted Reason for Exam->[facility] : 1980 Sex: FFINAL [...] measured as a percentage relative to the [place] artery distal to the stenosis(NASCET). CERVICAL CTA: [...] MDReport Verified Date/Time: 02/09/2021 08:42:54 Reading Location: [facility] Reading Room [address] [place] [address]
--- NOTE | 2022-03-15 14:58 | RAD REPORT ---
EXAM DESCRIPTION: US - Extrem Venous W Compress Ramiro - 03/15/2022 2:39 pm CLINICAL HISTORY: SWELLING Bilateral leg edema and swelling. COMPARISON: No comparisons TECHNIQUE: Real-time sonographic interrogation of the left and right lower extremity deep venous sys tems was performed. FINDINGS: Normal compressibility, flow augmentation, phasic flow and spontaneous flow is identified in both the left and right lower extremity deep venous systems. IMPRESSION: No sonographic evidence of left or right lower extremity deep venous thrombosis.
[2022-03-15 15:25] LABS: Urine Blood Trace-intact (Negative); Urine Glucose Negative (Negative); Urine Protein 1+ (Negative)
[2022-03-15] MEDS ORDERED: LIDOCAINE 4% PATCH ONE (15:40)
--- NOTE | 2022-03-15 15:48 | ER ---
Nurse's Notes [facility] Name: Krysten Gallegos Age: 41 yrs Sex: Female : 1980 Arrival Date: 03/15/2022 Time: 12:30 Bed 26 Private MD: Diagnosis: Low back pain-right Presentation: 03/15 12:53 Chief complaint: Patient states: "I was diagnosed with a UTI here a week ago and they ss told me to get an MRI, but I went to the doctor today and they told me to come back to the ER." Pt reports that her R low back has been worsening over the past 5 days. Coronavirus screen: Client denies travel out of the [place] in the last 14 days. Ebola Screen: Patient denies exposure to infectious person. Patient denies travel to an Ebola-affected area in the 21 days before illness onset. Initial Sepsis Screen: Does the patient meet any 2 criteria? No. Patient's initial sepsis screen is negative. Does the patient have a suspected source of infection? No. Patient's initial sepsis screen is negative. Risk Assessment: Do you want to hurt yourself or someone else? Patient reports no desire to harm self or others. Onset of symptoms was March 04, 2022. 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 - Social history:: Smoking status: Patient reports the use of cigarette tobacco products, denies chronic smoking, but will smoke occasionally. Screenin:00 Abuse screen: Denies threats or abuse. Denies injuries from another. Nutritional jl7 screening: No deficits noted. Tuberculosis screening: No symptoms or risk factors identified. Fall Risk IV access (20 points). Total Quintero Fall Scale indicates No Risk (0-24 pts). Assessment: 13:45 General: Appears in no apparent distress. uncomfortable, Behavior is cooperative, jl7 anxious. Pain: Complains of pain in right low back and right mid back Pain currently is 10 out of 10 on a pain scale. Neuro: Level of Consciousness is awake, alert, obeys commands, Oriented to person, place, time, situation. Cardiovascular: Patient's skin is warm and dry. Respiratory: Airway is patent Respiratory effort is even, unlabored, Respiratory pattern is regular, symmetrical. : Reports burning with urination. Derm: Skin is pink, warm \\T\\ dry. 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 14:46 Reassessment: Attempting to start IV on patient. Pt is refusing. Significant other at bedside trying to speak with patient about importance of obtaining IV access for further assessment and evaluation. Vital Signs: 12:53 BP 123 / 86; Pulse 99; Resp 17; Temp 98.2; Pulse Ox 100% on R/A; Weight 65.77 kg; ss Height 5 ft. 1 in. (154.94 cm); Pain 10/10; 12:53 Body Mass Index 27.40 (65.77 kg, 154.94 cm) ED Course: 12:30 Patient arrived in ED. mr 12:56 Triage completed. ss 12:56 Arm band placed on right wrist. ss 13:17 Robbi Palafox PA is PHCP. cp 13:17 Matty Dominguez MD is Attending Physician. cp 13:49 Joe Wynn RN is Primary Nurse. jl7 14:00 Patient has correct armband on for positive identification. jl7 14:00 Missed attempt(s): 22 gauge in right forearm. Bleeding controlled, band aid applied, jl7 catheter tip intact. 14:17 US Extremity Venous W Compression Ramiro In Process Unspecified. EDMS 16:16 No provider procedures requiring assistance completed. Patient did not have IV access jl7 during this emergency room visit. Administered Medications: 15:30 Not Given (Patient Refused): morphine 4 mg IVP once over 4 mins jl7 15:30 Not Given (Patient Refused): Zofran (Ondansetron) 4 mg IVP once; over 2 minutes jl7 15:31 Not Given (Patient Refused): HYDROcodone-acetaminophen 5 mg-325 mg 1 tabs PO once jl7 15:49 Drug: Lidoderm Patch 5 % (700 mg/patch) 1 patches Route: Topical; Site: affected area; jl7 16:15 Follow up: Response: No adverse reaction jl7 Medication: 15:00 VIS not applicable for this client. jl7 Outcome: 15:47 Discharge ordered by . promise 16:16 Discharged to home ambulatory. jl7 16:16 Condition: stable 16:16 Discharge instructions given to patient, Instructed on discharge instructions, follow up and referral plans. medication usage, Demonstrated understanding of instructions, follow-up care, medications, Prescriptions given X 3. 16:18 Patient left the ED. jl7 Signatures: Dispatcher [employer] Lili White Shelby, RN RN Robbi Pichardo, Joe Salcedo cp, RN RN jl7
--- NOTE | 2022-03-15 15:48 | EDPHYS ---
Physician Documentation [facility] Name: Krysten Gallegos Age: 41 yrs Sex: Female : 1980 Arrival Date: 03/15/2022 Time: 12:30 Bed 26 Private MD: ED Physician Matty Dominguez HPI: 03/15 13:50 This 41 yrs old Female presents to ER via Ambulatory with complaints of Back Pain. cp 13:50 The patient presents with pain that is acute, with no known mechanism of injury. The cp symptoms are located in the right mid back and right low back. Onset: The symptoms/episode began/occurred 10 day(s) ago. 13:50 Associated signs and symptoms: Pertinent positives: constipation, Pertinent negatives: cp chest pain, incontinence, numbness, weakness. 13:50 Patient admits to history of IV heroin use. cp 13:50 Patient reports she was referred to ED for MRI of lumbar spine. 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 - Social history:: Smoking status: Patient reports the use of cigarette tobacco products, denies chronic smoking, but will smoke occasionally. ROS: 13:55 Back: Positive for pain at rest, pain with movement, of the right mid back and right cp low back. 13:55 Constitutional: Negative for fever. cp 13:55 Cardiovascular: Negative for chest pain, palpitations. 13:55 Respiratory: Negative for cough, shortness of breath, wheezing. 13:55 Abdomen/GI: Positive for nausea and vomiting, constipation, Negative for diarrhea, black/tarry stool, rectal bleeding, bowel incontinence. 13:55 : Positive for decreased urine output, Negative for bladder incontinence. 13:55 Skin: Negative for cellulitis, rash. cp 13:55 Neuro: Negative for altered mental status, headache, numbness, weakness. 13:55 All other systems are negative. Exam: 14:00 Constitutional: The patient appears in no acute distress, alert, awake, cp non-diaphoretic, non-toxic, well developed, well nourished, in obvious pain, uncomfortable. 14:00 Head/Face: Normocephalic, atraumatic. cp 14:00 Eyes: Periorbital structures: appear normal, Conjunctiva: normal, no exudate, no injection, Sclera: no appreciated abnormality, Lids and lashes: appear normal, bilaterally. 14:00 ENT: External ear(s): are unremarkable, Nose: is normal, Mouth: Lips: moist, Oral mucosa: pink and intact, moist, Posterior pharynx: Airway: no evidence of obstruction, patent. 14:00 Neck: ROM/movement: is normal, is supple, without pain, no range of motions limitations. 14:00 Chest/axilla: Inspection: normal. cp 14:00 Cardiovascular: Rate: normal, Rhythm: regular, Edema: ankle edema, that is mild, JVD: cp is not appreciated. 14:00 Respiratory: the patient does not display signs of respiratory distress. 14:00 Abdomen/GI: Exam negative for discomfort, distension, guarding, Inspection: abdomen appears normal. 14:00 Back: pain, that is severe, of the lumbar area, right mid back and right low back, ROM is painful, with all movement, vertebral tenderness. 14:00 Neuro: Orientation: to person, place \T\ time. Mentation: is normal, Motor: moves all fours, strength is normal, Sensation: is normal, Gait: is steady. Vital Signs: 12:53 BP 123 / 86; Pulse 99; Resp 17; Temp 98.2; Pulse Ox 100% on R/A; Weight 65.77 kg; ss Height 5 ft. 1 in. (154.94 cm); Pain 10/10; 12:53 Body Mass Index 27.40 (65.77 kg, 154.94 cm) ss MDM: 13:31 Patient medically screened. cp 14:00 Differential diagnosis: chronic back pain, Epidural or Perispinal Abcess Osteomyelitis cp Pyelonephritis spinal injury, sprain, Ureterolithiasis vertebral fracture. 15:04 Refusal of service: The patient/guardian displays adequate decision making capability cp and despite a detailed discussion of alternatives, benefits, risks, and consequences refuses: all lab tests, placement of IV for lab draw and MRI with contrast. 15:47 Data reviewed: vital signs, nurses notes, I have discussed the patient's cp presentation/case with the attending Emergency Department Physician; and as a result, I will discharge patient. 15:47 Counseling: I had a detailed discussion with the patient and/or guardian regarding: the cp historical points, exam findings, and any diagnostic results supporting the discharge/admit diagnosis, the need for outpatient follow up, a family practitioner, to return to the emergency department if symptoms worsen or persist or if there are any questions or concerns that arise at home. Response to treatment: the patient's symptoms have mildly improved after treatment. 03/15 13:43 Order name: Urine Microscopic Only 03/15 14:03 Order name: US Extremity Venous W Compression Ramiro; Complete Time: 15:04 03/15 15:04 Interpretation: Report reviewed. 03/15 14:26 Order name: UDS 03/15 15:26 Order name: Urine Dipstick-Ancillary [facility] [place] 03/15 15:38 Order name: Urine --Ancillary (enter results) [facility] [place] 03/15 16:03 Order name: Urine Culture [facility] [place] 03/15 13:43 Order name: Urine Dipstick-Ancillary (obtain specimen); Complete Time: 15:31 03/15 13:43 Order name: Urine Test (obtain specimen); Complete Time: 15:31 03/15 15:46 Order name: Misc. Order: AMA form; Complete Time: 16:04 cp Administered Medications: 15:30 Not Given (Patient Refused): morphine 4 mg IVP once over 4 mins jl7 15:30 Not Given (Patient Refused): Zofran (Ondansetron) 4 mg IVP once; over 2 minutes jl7 15:31 Not Given (Patient Refused): HYDROcodone-acetaminophen 5 mg-325 mg 1 tabs PO once jl7 15:49 Drug: Lidoderm Patch 5 % (700 mg/patch) 1 patches Route: Topical; Site: affected area; jl7 16:15 Follow up: Response: No adverse reaction jl7 Disposition: 16:21 Co-signature as Attending Physician, Matty Dominguez MD. rn Disposition Summary: 03/15/22 15:47 Discharge Ordered Location: Home cp Problem: new cp Symptoms: have improved cp Condition: Stable cp Diagnosis - Low back pain - right cp Followup: cp - With: Private Physician - When: 1 - 2 days - Reason: Recheck today's complaints Discharge Instructions: - Discharge Summary Sheet cp - Acute Back Pain, Adult cp - Heat Therapy cp - Back Exercises cp Forms: - Medication Reconciliation Form cp - Thank You Letter cp - Antibiotic Education cp - Prescription Opioid Use cp Prescriptions: - Lidoderm 5 % Topical adhesive patch,medicated - apply 1 patch by TOPICAL route once daily; 15 patch; Refills: 0, Product cp Selection Permitted - Cyclobenzaprine 10 mg Oral Tablet - take 1 tablet by ORAL route every 8 hours As needed; 20 tablet; Refills: 0, cp Product Selection Permitted - Diclofenac Sodium 75 mg Oral tablet,delayed release (DR/EC) - take 1 tablet by ORAL route 2 times per day; 20 tablet; Refills: 0, Product cp Selection Permitted Signatures: Dispatcher [employer] EDMatty Fernandes MD MD rn Smirch, Shelby, RN RN ss Page, Corey, YULIYA PA Joe Epps RN RN jl7 Corrections: (The following items were deleted from the chart) 15:31 13:52 Anita ulloa. cp jl7
[2022-03-15 16:00] LABS: Urine Bacteria <20 /HPF (<20); Urine Mucus 2+ /HPF (NONE SEEN)
[2022-03-15 16:08] LABS: Barbiturates NEGATIVE (NEGATIVE); Benzodiazepines POSITIVE (NEGATIVE); Cocaine POSITIVE (NEGATIVE); METHAMPHETAM POSITIVE (NEGATIVE); Methadone NEGATIVE (NEGATIVE); Opiates NEGATIVE (NEGATIVE); Phencyclidine NEGATIVE (NEGATIVE); THC Cannibis POSITIVE (NEGATIVE)
[2022-03-15 16:54] VITALS: BP 123/86; TEMP 98.2; O2SAT 100
== END 2022-03-15 16:18 | disposition home or self-care (01) ==
LOC: ER 12:28
DX: M54.50 Low back pain, unspecified (principal); R11.2 Nausea with vomiting, unspecified; I10 Essential (primary) hypertension; F17.210 Nicotine dependence, cigarettes, uncomplicated; Z88.2 Allergy status to sulfonamides
CPT/HCPCS: 80307; 81003; 81015; 81025; 87086; 87088; 93970; J2001

== ENCOUNTER 2022-04-27 21:24 | Emergency (ER) | payer SELFPAY ==
--- OUTSIDE RECORDS SUMMARY | 2022-04-27 21:27 | XMS REPORT | Continuity of Care Document ---
:1980 Author Organization [facility] t Address [address] [place] [address] Care Team Providers Name Role Phone PCP, PATIENT DOES NOT HAVE A Primary Care Physician Unavaila Tai Bustamante Attending Clinician Tai OROZCO Attending Clinician Unavailable GABRIELLA SHORT Attending Clinician Unavailable Tai OROZCO Admitting Clinician Unavailable Payers Payer Name Policy Type Policy Number Effective Date Expiration Date Jorgito JARAMILLO [id number] 2020 00:00:00 Problems Condition Condition Condition Status Onset Resolution Last Treating Co mments Source Name Details Category Date Date Treatment Clinician Date No known No known Disease Unive rs active active ity of problems problems [facility] Allergies, Adverse Reactions, Alerts Allergy Allergy Status Severity Reaction(s) Onset Inactive Treating Comm ents Source Name Type Date Date Clinician Sulfa Propensi Active Other - See boyce Uni vers (Sulfona ty to comments 6-28 ity of mide adverse 00:00: [place] Antibiot reaction 00 Medica l ics) s Branch SULFA Drug Active Med Other-Cmnt Univer s (SULFONA Class 6-28 ity of MIDE 00:00: [place] ANTIBIOT 00 Medical ICS) Branch SULFA Allergy Active [facility] (SULFONA 9-16 MIDE 00:00: ANTIBIOT 00 ICS) NO KNOWN Drug Active Univers ALLERGIE Class ity of S [facility] Social History Social Habit Start Date Stop Date Quantity Comments Source Exposure to 2022-03-05 2022-03-15 Not sure [facility] SARS-CoV-2 (event) 00:00:00 23:10:00 Medica l Branch Sex Assigned At [birth year] [facility] 00:00:00 00:00:00 Medical Branch Smoking Status Start Date Stop Date Source Unknown if ever smoked [facility] Medications Ordered Filled Start Stop Current Ordering Indication Dosage Frequency Signature Comments Components Source Medication Medication Date Date Medication? Clinician (SIG) Name Name ibuprofen 2021- No 600mg 600 mg, Uni vers (IBU) 03-16 Oral, ity of tablet 600 09:15: 08:07 ONCE, 1 Vic as mg 00 :00 dose, On Medical Wed Branch 03/16/22 at 0415, GRETTA NaCl 0.9% 2021- No 1000mL at 999 Uni vers (NS) bolus 03-16 mL/hr, ity of infusion 08:15: 07:53 1,000 mL, Vic as 1,000 mL 00 :00 IV Medical Infusion, Branch ONCE, 1 dose, On 03/16/22 at 0315, STAT ondansetron Yes [id number] 4mg Take 1 Univers 4 mg 03-16 tablet by ity of disintegrat 00:00: mouth [place] ing tablet 00 every 8 Medica l (eight) Branch hours as needed for Nausea and Vomiting (N/V). cephALEXin 2021- Yes [id number] 500mg Take 1 Univers (KEFLEX) 03-16 07-10 capsule by ity of 500 mg 00:00: 04:59 mouth 3 [place] capsule 00 :00 (three) Medical times Branch daily for 10 days. Vital Signs Vital Name Observation Time Observation Value Comments Source Systolic blood 2022-03-16 08:00:00 109 mm[Hg] [facility] Diastolic blood 2022-03-16 08:00:00 77 [facility]Hg[facility] 2022-03-16 08:00:00 85 [facility] Respiratory rate 2022-03-16 08:00:00 26 /min [facility] in 2022-03-16 08:00:00 96 /min University Arterial blood by [facility] Pulse oximetry Branch Body temperature 2022-03-16 05:34:00 36.61 [facility] Body height 2022-03-16 04:15:00 157.5 cm [facility] Body weight 2022-03-16 04:15:00 65.772 kg [facility] BMI 2022-03-16 04:15:00 26.52 kg/m2 [facility] Procedures Procedure Date / Time Performing Clinician Source Performed CT ABDOMEN PELVIS WO 2022-03-16 06:42:00 Tai Orozco [facility] CONTRAST [facility] LIPASE 2022-03-16 06:23:00 Tai Orozco [facility] MAGNESIUM 2022-03-16 06:23:00 Tai Orozco [facility] COMP. METABOLIC PANEL 2022-03-16 06:23:00 Tai Orozco [facility] ([id number]) [facility] CBC WITH DIFF 2022-03-16 06:23:00 Tai Orozco [facility] URINE DRUG (IMMUNOASSAY) 2022-03-16 05:39:00 Tai Orozco [facility] DRUG [facility] ER SCREEN URINALYSIS 2022-03-16 04:27:00 Tai Orozco [facility] POCT TEST 2022-03-16 04:27:00 Tai Orozco [facility] CONSENT/REFUSAL FOR 2022-03-16 04:02:50 Doctor Unassigned, No Un [facility] DIAGNOSIS AND TREATMENT Name Medical [place] Encounters Start End Encounter Admission Attending Care Care Encounter Source Date/Time Date/Time Type Type Clinicians Facility Department ID 2022-03-15 2022-03-16 Emergency Tai Orozco [facility] [id number] [facility] 23:22:00 03:22:00 Angelica PLATA [id number] i [facility] [id number] [facility] [id number] [place] [id number] Branch 2022-03-15 2022-03-16 Emergency X Tai OROZCO [facility] ERT [id number] Univers 23:22:00 03:22:00 ity of [facility] 2021-02-08 2021-02-08 Outpatient DEJA, SLEMaryana SLE [id number] [facility] 00:00:00 00:00:00 GABRIELLA 2021-02-08 2021-02-08 Outpatient EL [facility] [id number] [facility] 00:00:00 00:00:00 2021-01-29 2021-01-29 Outpatient DEJA, [facility] [id number] [facility] 00:00:00 00:00:00 GABRIELLA 2021-01-29 2021-01-29 Outpatient EL DEJA, [facility] SLE [id number] [facility] 00:00:00 00:00:00 GABRIELLA Results Test Description Test Time Test Comments Results Result Comments Source CBC WITH DIFF 2022-03-16 08:12:02 Test Item Value Reference Range Interpretation Comme nts WBC (test code = 6690-2) See_Comment L [A utomated message] The system which ge nerated this result transmit benny reference range: 4.30 - 1 1.10 10*3/?L. The reference r emerson was not used to interpr et this result as normal/abnor mal. RBC (test code = 789-8) See_Comment L [Au tomated message] The system which ge nerated this result transmit benny reference range: 3.93 - 5 .25 10*6/?L. The reference r emerson was not used to interpr et this result as normal/abnor mal. HGB (test code = 718-7) 10.5 g/dL 11.6-15.0 L HCT (test code = 4544-3) 32.2 % 35.7-45.2 L MCV (test code = 787-2) 91.2 fL 80.6-95.5 MCH (test code = 785-6) 29.7 pg 25.9-32.8 MCHC (test code = 786-4) 32.6 g/dL 31.6-35.1 RDW-SD (test code = 66075-8) 44.4 fL 39.0-49.9 RDW-CV (test code = 788-0) 13.6 % 12.0-15.5 PLT (test code = 777-3) See_Comment [Au tomated message] The system which ge nerated this result transmit benny reference range: 166 - 35 8 10*3/?L. The reference range was not used to interpret th is result as normal/abnormal . MPV (test code = 59204-6) 9.7 fL 9.5-12.9 NRBC/100 WBC (test code = See_Comment [ Automated message] The 0684948790) system which ge nerated this result transmit benny reference range: 0.0 - 10 .0 /100 WBCs. The reference r emerson was not used to interpr et this result as normal/abnor mal. NRBC x10^3 (test code = <0.01 See_Comment [Au tomated message] The 6197640147) system which ge nerated this result transmit benny reference range: 10*3/?L. The reference range was not u sed to interpret this result as normal/abnormal . GRAN MAT (NEUT) % (test code 45.3 % = 770-8) IMM GRAN % (test code = 0.30 % 6364766598) LYMPH % (test code = 736-9) 40.9 % MONO % (test code = 5905-5) 7.8 % EOS % (test code = 713-8) 5.2 % BASO % (test code = 706-2) 0.5 % GRAN MAT x10^3(ANC) (test 1.75 10*3/uL 1.88-7.09 L code = 8059773895) IMM GRAN x10^3 (test code = <0.03 0.00-0.06 9623157776) LYMPH x10^3 (test code = 1.58 10*3/uL 1.32-3.29 731-0) MONO x10^3 (test code = 0.30 10*3/uL 0.33-0.92 L 742-7) EOS x10^3 (test code = 0.20 10*3/uL 0.03-0.39 711-2) BASO x10^3 (test code = <0.03 0.01-0.07 704-7) Lab Interpretation (test Abnormal code = 32234-3) [facility]58[facility]10 Test Item Value Reference Range Interpretation Comments MAGNESIUM (test code = 4517778499) 1.7 mg/dL 1.7-2.4 Lab Interpretation (test code = Normal 10973-3) [facility]OL[facility] PAN[facility] ([id number])2022-03-16 06:57:50 Test Item Value Reference Range Interpretation Comments NA (test code = 138 mmol/L 135-145 6818462994) K (test code = 3.6 mmol/L 3.5-5.0 2835901382) CL (test code = 107 mmol/L 98-108 5697763347) CO2 TOTAL (test code = 24 mmol/L 23-31 2060731861) AGAP (test code = 2-16 6702931229) BUN (test code = 9 mg/dL 7-23 0839961586) GLUCOSE (test code = 117 mg/dL 70-110 H 7837776732) CREATININE (test code = 0.51 mg/dL 0.50-1.04 1749220303) TOTAL BILI (test code = 0.4 mg/dL 0.1-1.4 9644810869) CALCIUM (test code = 8.8 mg/dL 8.6-10.6 0535990443) T PROTEIN (test code = 5.8 g/dL 6.3-8.2 L 5754073119) ALBUMIN (test code = 3.4 g/dL 3.5-5.0 L 3214599118) ALK PHOS (test code = 53 U/L 34-122 5614238532) ALTv (test code = 40 U/L 5-35 H 1742-6) AST(SGOT) (test code = 37 U/L 13-40 7915378240) eGFR (test code = mL/min/1.73m2 4615837637) INGA (test code = INGA) Association of Glomerular Filtration Rate (GFR) and Staging of Kidney Disease* + --+ --+ ------+| GFR (mL/min/1.73 m2) ?| With Kidney Damage ?| ?Without Kidney Damage+ --------+ --------+ +| ?>90 ?| ?Stage one ?| ? Normal ?+ ---+ ---+ -------+| ?60-89 ?| ?Stage two ?| ? Decreased GFR ? + --+ --+ ------+| ?30-59 ?| ?Stage three ?| ? Stage three ? + --+ --+ ------+| ?15-29 ?| ?Stage four ? | ? Stage four ?+ ---+ ---+ -------+| ?<15 (or dialysis) ? ?| ?Stage five ? | ? Stage five ?+ ---+ ---+ -------+ *Each stage assumes the associated GFR level has been in effect for at least three months. ?Stages 1 to 5, with or without kidney disease, indicate chronic kidney disease. Notes: Determination of stages one and two (with eGFR >59mL/min/1.73 m2) requires estimation of kidney damage for at least three months as defined by structural or functional abnormalities of the kidney, manifested by either:Pathological abnormalities or Markers of kidney damage (including abnormalities in the composition of the blood or urine or abnormalities in imaging tests). Lab Interpretation Abnormal (test code = 49038-9) [facility] 06:57:50 Test Item Value Reference Range Interpretation Comments LIPASE (test code = 4691383244) 106 U/L 0-220 Lab Interpretation (test code = Normal 42849-4) [facility] [id number] 04:27:00 Test Item Value Reference Range Interpretation Comments POCT PREG (test code = 1605) negative On board controls acceptable with present C Line (test code = 3574) POCT PREG LOT # (test code = 3575) [id number] POCT PREG TEST DATE (test 07/18/2023 code = 3576) Lab Interpretation (test code = Normal 73060-8) [facility], [id number] 10:05:04SPECIMEN NUMBER: [id number] CULTURE, URINE SPECIMEN NUMBER: [id number] SPECIMEN COMMENT: URINE SOURCE:URINE REPORT STATUS: FINAL ISOLATE NUMBER 1: ORGANISM: 03/05/2022 >100,000 CFU/ML STAPHYLOCOCCUS SPECIES IDENTIFICATION: 03/09/2022 STAPHYLOCOCCUS AUREUS STAPH. AUREUS AMOXICILLIN/CASENSITIVE <=4/2CEFAZOLIN SENSITIVE <=4NITROFURANTOIN SENSITIVE <=32OXACILLIN SENSITIVE <=0.25RIFAMPIN SENSITIVE <=1TETRACYCLINE SENSITIVE <=1TRIMETH/SULFA SENSITIVE *1 Note 1: <=0.5/9.5VANCOMYCIN SENSITIVE 1 NOTE: NUMBERS DISPLAYED REPRESENT MINIMUM INHIBITORY CONCENTRATION (IFEANYI) WHICH IS EXPRESSED IN MCG/ML. UNLESS OTHERWISE INDICATED, ALL TESTING PERFORMED [facility]ING[facility] [employer] [address] [place] [address] TAX TECHNICIAN: EARLE MONTAGUE M.D. [place] NUMBER [id number] [facility] [place]. [id number] 09/19 4TH GEN, RFLX [id number] 07:17:41 Test Item Value Reference Range Interpretation Comments HIV 09/19 4TH GEN, RFLX CONF (test NON-REACTIVE NON-REACTIVE code = 3514) HEPATITIS PANEL, [id number] 07:17:41 Test Item Value Reference Range Interpretation Comments HEPATITIS A IgM (test NON-REACTIVE NON-REACTIVE code = 60744) HEPATITIS B CORE IgM NON-REACTIVE NON-REACTIVE (test code = 4644) HEPATITIS B SURF AG REACTIVE NON-REACTIVE H (test code = 2739) HBSAG CONFIRMATION CONFIRMED NON-REACTIVE A TEST (test code = REACTIVE 2741) HEPATITIS C ANTIBODY REACTIVE NON-REACTIVE A (test code = 4675) INTERPRETATION (NOTE) Hepatitis A HEPATITIS A: (test serology shows no code = 2552) evidence of acu te hepatitis A. INTERPRETATION (NOTE) Hepatitis B HEPATITIS B: (test serology consistent code = 24374) with either ea rly acute hepatitis B (less than 6-12 weeks from init ial exposure) or chronic hepatit is Binfection (usu ally beyond 28-36 we eks after infection ). Hepatitis Bcore total antibody, hepatitis Be antigen and antibody may beinformative. Patient should be considered contagious at t his time. INTERPRETATION (NOTE) Hepatitis C HEPATITIS C: (test serology is code = 99595) consistent wit h exposure to hepatitis Cviru s. The CDC recomme nds performing a supplemental confirmatory te ston initial positiv e hepatitis C antibody tests. HCV PCR quantitativ ecan be used to conf irm these results o n a new sample (See MMWR, 2003;52 RR-3). UNLESS OTHERWISE INDICATED, ALL TESTING PERFORM [facility]. [address] [place] [address] 4 TAX TECHNICIAN: EARLE MONTAGUE M.D. CLIA NUMBER [id number] [place] O. [id number] LIPID [id number] 05:18:29 Test Item Value Reference Range Interpretation [...] MOREINFORMATION , SEE CLIENT ANNOUNCE MENT AT [email or web address] RISK RATIO LDL/HDL 0.82 RATIO <3.22 (test code = 2238) COMPREHENSIVE METABOLIC [id number] 05:18:29 Test Item Value Reference Range Interpretation Comments GLUCOSE (test code = 110 MG/DL 70-99 H 2216) BUN (test code = 11 MG/DL 6-20 2207) CREATININE (test 0.61 MG/DL 0.60-1.30 code = 2214) eGFR (2020 CKD-EPI) 114 >60 (test code = 78625) ML/MIN/1.73 CALC BUN/CREAT (test 18 RATIO 6-28 code = 2235) SODIUM (test code = 137 MEQ/L 295-004 3438) POTASSIUM (test code 3.5 MEQ/L 3.5-5.4 = 2228) CHLORIDE (test code 99 MEQ/L 95-107 = 221) CARBON DIOXIDE (test 25 MEQ/L 19-31 code [...] PHOSPHATASE 69 U/L 40-113 (test code = 2203) AST (test code = 22 U/L 9-40 2217) ALT (test code = 14 U/L 5-40 2218) HEMOGLOBIN [id number] 03:44:56 Test Item Value Reference Range Interpretation Comments HEMOGLOBIN A1c (test code = 31906) 4.7 % 4.2-5.6 CBC W/AUTO DIFF WITH [id number] 03:06:01 Test Item Value Reference Range Interpretation [...] = 1036) NUCLEATED RBCS (test 0.0 /100 WBC'S See_Comment [Aut omated code = 1065) message] The sy stem which generated this [...] RBCS 0.00 K/UL 0.00-0.11 (test code = 57139) CT, CTANGIO [id number] 08:42:00Unlisted Reason for Exam - Click Yes and Enter Reason Below->YesUnlisted Reason for Exam->CEREBRAL ANEURYSM [facility] : 1980 Sex: FFINAL REPORT CT, CAROTID, ANGIO, CT, CTANGIO BRAIN HISTORY: Cerebral aneurysm COMPARISON: None. TECHNIQUE: CTA of the head and neck was performed with intravenous iodine based contrast. Coronal, sagittal, 3-D, and oblique maximum intensity projection reformations were created. A noncontrast head CT was also obtained. One or more of the following dose reduction techniques were used: Automated exposure control, adjustment of the mA and/or kV according to patient size, and/or utilization of iterative reconstruction technique. DISCUSSION:If present, any cervical carotid stenosis will be measured as a percentage relative to the [place] artery distal to the stenosis (NASCET). CERVICAL CTA: Right Carotid: Patent, no abnormalities. The cervical right internal carotid artery is tortuous.Left Carotid: Patent, no abnormalities. Right vertebral artery: Patent, no abnormalities. Left vertebral artery: Patent, no abnormalities. INTRACRANIAL CTA: Carotid arteries:Minimal subtle bilateral c arotid siphon calcification without stenosis.No abnormalities in the [...] opacified with mild surrounding sclerosis, which suggests chronicinflammation. Mild left maxillary sinus mucosal thickening is present as well. There are paraseptal e mphysematous changes at the lung apices. There are mild degenerative changes throughout the spine. IMPRESSION:1.Minimal subtle bilateral carotid siphon calcification without stenosis.2.No other intracranial or neck CTA abnormalities. Specifically, no evidence for aneurysm. Signed: Solitario Mahan Verified Date/Time: 02/09/2021 08:42:54 Reading Location: [facility] Reading Room [address] [place] [address] [facility], CAROTID, [id number] 08:42:00Unlisted Reason for Exam - Click Yes and Enter Reason Below->YesUnlisted Reason for Exam->CEREBRAL [facility]YSMC[facility]UN[facility]NAName: PHYLLIS SOUZA : 1980 Sex: FFINAL REPORT CT, CAROTID, ANGIO, CT, CTANGIO BRAIN HISTORY: Cerebral aneurysm COMPARISON: None. TECHNIQUE: CTA of the head and neck was performed with intravenous iodine based contrast. Coronal, sagittal, 3-D, and oblique maximum intensity projection reformations were created. A noncontrast head CT was also obtained. One or more of the following dose reduction techniques were used: Automated exposure control, adjustment of the mA and/or kV according to patient size, and/or utilization of iterative reconstruction technique. DISCUSSION:If present, any cervical carotid stenosis will be measured as a percentage relative to the [place] artery distal to the stenosis (NASCET). CERVICAL CTA: Right Carotid: Patent, no abnormalities. The cervical right internal carotid artery is tortuous.Left Carotid: Patent, no abnormalities. Right vertebral artery: Patent, no abnormalities. Left vertebral artery: Patent, no abnormalities. INTRACRANIAL CTA: Carotid arteries:Minimal subtle bilateral ca rotid siphon calcification without stenosis.No abnormalities in the [...] left maxillary sinus mucosal thickening is present as well. There are paraseptal em physematous changes at the lung apices. There are mild degenerative changes throughout the spine. IMPRESSION:1.Minimal subtle bilateral carotid siphon calcification without stenosis.2.No other intracranial or neck CTA abnormalities. Specifically, no evidence for aneurysm. Signed: Solitario Mahan Verified Date/Time: 02/09/2021 08:42:54 Reading Location: [place] [address] "
[2022-04-27] MEDS ORDERED: THIAMINE 200 MG/2 ML INJ ONE (22:55)
[2022-04-27] MEDS ORDERED: NA CHLORIDE 0.9% 1,000 ML ONE (22:55)
--- NOTE | 2022-04-27 23:44 | ER ---
Nurse's Notes [facility] Name: Krysten Gallegos Age: 41 yrs Sex: Female : 1980 Arrival Date: 04/27/2022 Time: 21:35 Bed 3 Private MD: Diagnosis: Altered mental status, unspecified;Abuse of other non-psychoactive substances;Adverse effect of benzodiazepines Presentation: 04/27 21:36 Chief complaint: EMS states: [place] pt awake at this time speech slurred reports takes Xanax 4 times daily [facility] stated [facility] gave her a pill that was supposed to be new kind of Xanax. Coronavirus screen: Vaccine status: Patient reports being unvaccinated. Ebola Screen: Patient negative for fever greater than or equal to 101.5 degrees Fahrenheit, and additional compatible Ebola Virus Disease symptoms. Initial Sepsis Screen: Does the patient meet any 2 criteria? No. Patient's initial sepsis screen is negative. Does the patient have a suspected source of infection? No. Patient's initial sepsis screen is negative. Risk Assessment: Do you want to hurt yourself or someone else? Patient reports no desire to harm self or others. Onset of symptoms was April 27, 2022. 21:36 [facility] Acuity: SAMY 3 Triage Assessment: 21:39 General: Appears unkempt, Behavior is cooperative. Pain: Denies pain. PHOTOGRAPHY ASSISTANT: 04/28 00:01 LMP N/A - control method Historical: - Allergies: 04/27 21:38 Sulfa (Sulfonamide Antibiotics); - Home Meds: 21:38 citalopram oral [Active]; Suboxone [Active]; - PMHx: 21:38 Aneurysm; brain aneurysm; Hypertension; IV DRUG USE; - Immunization history:: Adult Immunizations not up to date. - Social history:: Smoking status: Patient reports the use of cigarette tobacco products. Screenin/11 00:00 Abuse screen: Denies threats or abuse. Nutritional screening: No deficits noted. Nutritional screening: pt given crackers tolerated well. Tuberculosis screening: No symptoms or risk factors identified. Fall Risk None identified. Assessment: 04/27 22:53 Reassessment: attempted IV insertion pt refused Dr Ellsworth notified. bb 23:35 General: Appears in no apparent distress. comfortable, Behavior is anxious, restless. kl Pain: Denies pain. Neuro: Level of Consciousness is awake, alert, obeys commands, Oriented to person, place, situation. Cardiovascular: No deficits noted. Respiratory: No deficits noted. Airway is patent Trachea midline Respiratory effort is even, unlabored, Breath sounds are clear. GI: No deficits noted. No signs and/or symptoms were reported involving the gastrointestinal system. : No deficits noted. No signs and/or symptoms were reported regarding the genitourinary system. EENT: No deficits noted. No signs and/or symptoms were reported regarding the EENT system. Derm: puncture ku noted to right AC and right hand pt reports has been injecting heroin. Vital Signs: 21:36 BP 131 / 99; Pulse 90; Resp 16; Temp 97(O); Pulse Ox 100% on R/A; Pain 0/10; 04/28 00:00 BP 128 / 72; Pulse 67; Resp 20; Temp 97.6(TE); Pulse Ox 99% on R/A; Pain 0/10; ED Course: 04/27 21:35 Patient arrived in ED. kl 21:38 Triage completed. 21:44 Robbi Ellsworth MD is Attending Physician. [facility]25 CT Head Brain wo Cont In Process Unspecified. EDKY 04/28 00:01 Arm band placed on right wrist. 00:01 No provider procedures requiring assistance completed. Patient did not have IV access kl during this emergency room visit. 00:02 Patient has correct armband on for positive identification. Administered Medications: No medications were administered Medication: 00:02 VIS not applicable for this client. Outcome: 04/27 23:44 Discharge ordered by . [facility] 04/28 00:01 Discharged to home ambulatory. Condition: stable Discharge instructions given to patient, Instructed on discharge instructions, follow up and referral plans. Demonstrated understanding of instructions, follow-up care. 00:02 Patient left the ED. Signatures: Dispatcher [employer] EDKY Linh Hernandez, KRISTOPHER RN Robbi Herrera MD MD cha Ballard, Brenda RN RN bam
--- NOTE | 2022-04-27 23:44 | EDPHYS ---
Physician Documentation [facility] Name: Krysten Gallegos Age: 41 yrs Sex: Female : 1980 Arrival Date: 04/27/2022 Time: 21:35 Bed 3 Private MD: ED Physician Robbi Ellsworth HPI: 04/27 21:50 This 41 yrs old Female presents to ER via EMS with complaints of ams, xanax. alexia 21:50 found unresponsive, park , xanax. The patient presents with confusion, decreased mental alexia status. Onset: The symptoms/episode began/occurred just prior to arrival. Possible causes: CVA or TIA, drug use, alcohol, head injury, low blood sugar. Associated signs and symptoms: The patient has no apparent associated signs or symptoms. Onset: The symptoms/episode began/occurred at an unknown time. Patient's baseline: Neuro: alert and fully oriented. Severity of symptoms: At their worst the symptoms were mild moderate in the emergency department the symptoms have improved mildly. It is unknown whether or not the patient has had similar symptoms in the past. [employer]: 04/28 00:01 LMP N/A - control method kl Historical: - Allergies: 04/27 21:38 Sulfa (Sulfonamide Antibiotics); kl - Home Meds: 21:38 citalopram oral [Active]; Suboxone [Active]; kl - PMHx: 21:38 Aneurysm; brain aneurysm; Hypertension; IV DRUG USE; kl - Immunization history:: Adult Immunizations not up to date. - Social history:: Smoking status: Patient reports the use of cigarette tobacco products. ROS: 21:52 Constitutional: Negative for fever, chills, and weight loss, Eyes: Negative for injury, alexia pain, redness, and discharge, ENT: Negative for injury, pain, and discharge, Neck: Negative for injury, pain, and swelling, Cardiovascular: Negative for chest pain, palpitations, and edema, Respiratory: Negative for shortness of breath, cough, wheezing, and pleuritic chest pain, Abdomen/GI: Negative for abdominal pain, nausea, vomiting, diarrhea, and constipation, Back: Negative for injury and pain, : Negative for injury, bleeding, discharge, and swelling, MS/Extremity: Negative for injury and deformity, Skin: Negative for injury, rash, and discoloration, Psych: Negative for depression, anxiety, suicide ideation, homicidal ideation, and hallucinations, Allergy/Immunology: Negative for hives, rash, and allergies, Endocrine: Negative for neck swelling, polydipsia, polyuria, polyphagia, and marked weight changes, Hematologic/Lymphatic: Negative for swollen nodes, abnormal bleeding, and unusual bruising. 21:52 Neuro: Positive for altered mental status, speech changes, weakness. Exam: 21:52 Constitutional: This is a well developed, well nourished patient who is awake, alert, alexia and in no acute distress. Head/Face: Normocephalic, atraumatic. Eyes: Pupils equal round and reactive to light, extra-ocular motions intact. Lids and lashes normal. Conjunctiva and sclera are non-icteric and not injected. Cornea within normal limits. Periorbital areas with no swelling, redness, or edema. ENT: Nares patent. No nasal discharge, no septal abnormalities noted. Tympanic membranes are normal and external auditory canals are clear. Oropharynx with no redness, swelling, or masses, exudates, or evidence of obstruction, uvula midline. Mucous membranes moist. Neck: Trachea midline, no thyromegaly or masses palpated, and no cervical lymphadenopathy. Supple, full range of motion without nuchal rigidity, or vertebral point tenderness. No Meningismus. Chest/axilla: Normal chest wall appearance and motion. Nontender with no deformity. No lesions are appreciated. Cardiovascular: Regular rate and rhythm with a normal S1 and S2. No gallops, murmurs, or rubs. Normal PMI, no JVD. No pulse deficits. Respiratory: Lungs have equal breath sounds bilaterally, clear to auscultation and percussion. No rales, rhonchi or wheezes noted. No increased work of breathing, no retractions or nasal flaring. Abdomen/GI: Soft, non-tender, with normal bowel sounds. No distension or tympany. No guarding or rebound. No evidence of tenderness throughout. Back: No spinal tenderness. No costovertebral tenderness. Full range of motion. Skin: Warm, dry with normal turgor. Normal color with no rashes, no lesions, and no evidence of cellulitis. MS/ Extremity: Pulses equal, no cyanosis. Neurovascular intact. Full, normal range of motion. 21:52 Neuro: Orientation: to person, place, time, situation, Mentation: slow to respond, Memory: is normal, appropriate for stated age, no acute changes, Cranial nerves: no acute changes, Cerebellar function: is grossly normal based on the patient's age, no acute changes, Motor: moves all fours, Sensation: no obvious gross deficits, appropriate no acute changes, Gait: not tested. seizure activity, is not displayed by the patient. 23:44 ECG was reviewed by the Attending Physician. [facility] Vital Signs: 21:36 BP 131 / 99; Pulse 90; Resp 16; Temp 97(O); Pulse Ox 100% on R/A; Pain 0/10; kl 08 00:00 BP 128 / 72; Pulse 67; Resp 20; Temp 97.6(TE); Pulse Ox 99% on R/A; Pain 0/10; kl MDM: 04/27 21:44 Patient medically screened. [facility] 23:41 Data reviewed: vital signs, nurses notes, EKG, radiologic studies, CT scan. [facility] 04/27 21:48 Order name: EKG; Complete Time: 21:50 [facility] 04/27 21:48 Order name: EKG - Nurse/Tech; Complete Time: 23:44 [facility] 04/27 21:52 Order name: CT Head Brain wo Cont [facility] 04/27 21:48 Order name: IV Saline Lock [facility] 04/27 21:48 Order name: Labs collected and sent [facility] 04/27 21:48 Order name: Suicide Screening (Woody) [facility] 04/27 21:48 Order name: Urine Dipstick-Ancillary (obtain specimen) [facility] 04/27 21:48 Order name: Urine Test (obtain specimen) [facility] EC:44 Rate is 88 beats/min. Rhythm is regular. QRS [place] is Normal. [place] interval is normal. QRS alexia interval is normal. QT interval is prolonged at 486 msec. No Q waves. T waves are Normal. No ST changes noted. Clinical impression: NSR w/ Non-specific ST/T Changes and No evidence of ischemia. Interpreted by me. Reviewed by me. Administered Medications: No medications were administered Disposition Summary: 04/27/22 23:44 Discharge Ordered Location: Home alexia Problem: new alexia Symptoms: have improved alexia Condition: Stable alexia Diagnosis - Altered mental status, unspecified alexia - Abuse of other non-psychoactive substances alexia - Adverse effect of benzodiazepines alexia Followup: alexia - With: Private Physician - When: 2 - 3 days - Reason: Recheck today's complaints, Continuance of care, Re-evaluation by your physician Discharge Instructions: - Discharge Summary Sheet alexia - Finding Treatment for Addiction alexia - Confusion alexia - Substance Use Disorder alexia - Supporting Someone With an Addiction alexia - Substance Use Disorder and Mental Illness alexia - Illegal Drug Use Information, Adult alexia Forms: - Medication Reconciliation Form alexia - Thank You Letter alexia - Antibiotic Education alexia - Prescription Opioid Use alexia Signatures: Dispatcher [employer] Linh Strange RN RN kl Anderson, Corey, MD MD cha
[2022-04-28] MEDS ORDERED: LIDOCAINE 1% W/EPI 1:100,000 MDV 50 ML VIAL ONE (01:44)
[2022-04-28 02:44] VITALS: BP 128/72; TEMP 97.6; O2SAT 99
--- NOTE | 2022-04-28 14:31 | EKG ---
Test Date: 2022-04-27 Test Time: 23:30:42 Merchandising Intern: [place] MEASUREMENT RESULTS: Intervals: Rate: 88 AL: 182 QRSD: 76 QT: 402 QTc: 486 [place]: P: 62 AL: 182 QRS: 33 T: 23 INTERPRETIVE STATEMENTS: Normal sinus rhythm Prolonged QT Abnormal ECG Compared to ECG 07/07/2021 04:34:10 Prolonged QT interval now present Sinus tachycardia no longer present T-wave abnormality no longer present Possible ischemia no longer present Electronically Signed On 04-28-22 14:30:24 CDT by Harjeet Cruz
--- NOTE | 2022-04-28 19:19 | RAD REPORT ---
EXAM DESCRIPTION: CT - Head Brain Wo Cont - 04/28/2022 5:46 am CLINICAL HISTORY: Mental status change, unknown cause COMPARISON: CT Head/Brain Without Contrast 07/07/2021 TECHNIQUE: Head/brain axial images acquired without contrast. Coronal and sagittal reformats created . Exam performed according to departmental dose-optimization program which includes automated exposur e control, adjustment of mA and/or kV according to patient size, and/or use of iterative reconstructi on technique. FINDINGS: No midline shift, mass effect, intracranial hemorrhage, or hydrocephalus. Brain parenchyma unremarkable. Partially-imaged right maxillary sinus again shows marked opacification. Mastoid air cells clear. No skull fracture or significant skull lesion. IMPRESSION: 1. Unremarkable CT brain appearance. 2. Unchanged, partially-imaged, marked, right maxillary sinus opacification. This may represent chronic sinusitis. Electronically signed by: Rickey Todd MD 04/27/2022 11:50 PM CDT Due to temporary technical issues with the PACS/Fluency reporting system, reports are being signed by the in house radiologists without review as a courtesy to insure prompt reporting. The interpreting radiologist is fully responsible for the content of the report.
== END 2022-04-28 00:02 | disposition home or self-care (01) ==
LOC: ER 21:24
DX: R41.82 Altered mental status, unspecified (principal); F55.8 Abuse of other non-psychoactive substances; T42.4X5A Adverse effect of benzodiazepines, initial encounter; I10 Essential (primary) hypertension; Z72.0 Tobacco use; Z88.2 Allergy status to sulfonamides
CPT/HCPCS: 70450; 93005; 99283; J3411; J7030

== ENCOUNTER 2022-04-28 01:28 | Emergency (ER) | payer SELFPAY ==
--- OUTSIDE RECORDS SUMMARY | 2022-04-28 01:31 | XMS REPORT | Continuity of Care Document ---
:1980 Author Organization [facility] t Address [address] [place] [address] Care Team Providers Name Role Phone PCP, PATIENT DOES NOT HAVE A Primary Care Physician Unavaila Tai Bustamante Attending Clinician Tai OROZCO Attending Clinician Unavailable GABRIELLA SHORT Attending Clinician Unavailable Tai OROZCO Admitting Clinician Unavailable Payers Payer Name Policy Type Policy Number Effective Date Expiration Date Jorgito JARAMILLO [id number] 2020 00:00:00 Problems Condition Condition Condition Status Onset Resolution Last Treating Co mments Source Name Details Category Date Date Treatment Clinician Date No known No known Disease Unive rs active active ity of problems problems [facility] Allergies, Adverse Reactions, Alerts Allergy Allergy Status [...] Active Univers ALLERGIE Class ity of S [facility] Social History Social Habit Start Date Stop Date Quantity Comments Source Exposure to 2022-03-05 2022-03-15 Not sure [facility] SARS-CoV-2 (event) 00:00:00 23:10:00 Medica l Branch Sex Assigned At [birth year] [facility] 00:00:00 00:00:00 Medical Branch Smoking Status Start Date Stop Date Source Unknown if ever smoked [facility] Medications Ordered Filled Start Stop [...] On 03/16/22 at 0315, STAT ondansetron Yes [id number] 4mg Take 1 Univers 4 mg 03-16 tablet by ity of disintegrat 00:00: mouth [place] ing tablet 00 every 8 Medica l (eight) Branch hours as needed for Nausea and Vomiting (N/V). cephALEXin 2021- Yes [id number] 500mg Take 1 Univers (KEFLEX) 03-16 07-10 capsule by ity of 500 mg 00:00: 04:59 mouth 3 [place] capsule 00 :00 (three) Medical times Branch daily for 10 days. Vital Signs Vital Name Observation Time Observation Value Comments Source Systolic blood 2022-03-16 08:00:00 109 mm[Hg] [facility] Diastolic blood 2022-03-16 08:00:00 77 [facility]Hg[facility] 2022-03-16 08:00:00 85 /min [facility] Respiratory rate 2022-03-16 08:00:00 26 /min [facility] [place] Oxygen saturation in 2022-03-16 08:00:00 96 /min [facility] Arterial blood by [facility] [place] Pulse oximetry Branch Body temperature 2022-03-16 05:34:00 36.61 [facility] Body height 2022-03-16 04:15:00 157.5 cm [facility] Body weight 2022-03-16 04:15:00 65.772 kg [facility] BMI 2022-03-16 04:15:00 26.52 kg/m2 [facility] Procedures Procedure Date / Time Performing Clinician Source Performed CT ABDOMEN PELVIS WO 2022-03-16 06:42:00 Tai Orozco [facility] CONTRAST [facility] LIPASE 2022-03-16 06:23:00 Tai Orozco [facility] MAGNESIUM 2022-03-16 06:23:00 Tai Orozco [facility] COMP. METABOLIC PANEL 2022-03-16 06:23:00 Tai Orozco [facility] ([id number]) [facility] CBC WITH DIFF 2022-03-16 06:23:00 Tai Orozco [facility] URINE DRUG (IMMUNOASSAY) 2022-03-16 05:39:00 Tai Orozco [facility] DRUG [facility] SCREEN URINALYSIS 2022-03-16 04:27:00 Tai Orozco [facility] POCT TEST 2022-03-16 04:27:00 Tai Orozco [facility] CONSENT/REFUSAL FOR 2022-03-16 04:02:50 Doctor Unassigned, No Un [facility] DIAGNOSIS AND TREATMENT Name Medical [place] Encounters Start End Encounter Admission Attending Care Care Encounter Source Date/Time Date/Time Type Type Clinicians Facility Department ID 2022-03-15 2022-03-16 Emergency Tai Orozco [facility] [id number] [facility] 23:22:00 03:22:00 Angelica PLATA [id number] i [facility] [id number] [facility] [id number] [place] [address] Branch 2022-03-15 2022-03-16 Emergency X Tai OROZCO [facility] ERT [id number] Univers 23:22:00 03:22:00 ity [facility] 2021-02-08 2021-02-08 Outpatient EL SLEMaryana SLE [id number] [facility] 00:00:00 00:00:00 2021-02-08 2021-02-08 Outpatient DEJA, [facility] SLE [id number] [facility] 00:00:00 00:00:00 GABRIELLA 2021-01-29 2021-01-29 Outpatient DEJA, [facility]H SLE [id number] [facility] 00:00:00 00:00:00 GABRIELLA 2021-01-29 2021-01-29 Outpatient EL DEJA SLE SLE [id number] [facility] 00:00:00 00:00:00 GABRIELLA Results Test [...] 32.6 g/dL 31.6-35.1 RDW-SD (test code = 95976-0) 44.4 fL 39.0-49.9 RDW-CV (test code = 788-0) 13.6 % 12.0-15.5 PLT (test code = 777-3) See_Comment [Au tomated message] The system which ge nerated this result transmit benny reference range: 166 - 35 8 10*3/?L. The reference range was not used to interpret th is result as normal/abnormal . MPV (test code = 94370-2) 9.7 fL 9.5-12.9 NRBC/100 WBC (test code = See_Comment [ Automated message] The [id number]) system which ge nerated this result transmit benny reference range: 0.0 - 10 .0 /100 WBCs. The reference r emerson was not used to interpr et this result as normal/abnor mal. NRBC x10^3 (test code = <0.01 See_Comment [Au tomated message] The 6288506166) system which ge nerated this result transmit benny reference range: 10*3/?L. The reference range was not u sed to interpret this result as normal/abnormal . GRAN MAT (NEUT) % (test code 45.3 % = 770-8) IMM GRAN % (test code = 0.30 % 8902892183) LYMPH % (test code = 736-9) 40.9 % MONO % (test code = 5905-5) 7.8 % EOS % (test code = 713-8) 5.2 % BASO % (test code = 706-2) 0.5 % GRAN MAT x10^3(ANC) (test 1.75 10*3/uL 1.88-7.09 L code = 1459059136) IMM GRAN x10^3 (test code = <0.03 0.00-0.06 0589377419) LYMPH x10^3 (test code = 1.58 10*3/uL 1.32-3.29 731-0) MONO x10^3 (test code = 0.30 10*3/uL 0.33-0.92 L 742-7) EOS x10^3 (test code = 0.20 10*3/uL 0.03-0.39 711-2) BASO x10^3 (test code = <0.03 0.01-0.07 704-7) Lab Interpretation (test Abnormal code = 54766-3) [facility]-29 06:58:10 Test Item Value Reference Range Interpretation Comments MAGNESIUM (test code = 1128631990) 1.7 mg/dL 1.7-2.4 Lab Interpretation (test code = Normal 60791-8) [facility] Alliance[facility]. METABOLIC PANEL (14747)2022-03-16 06:57:50 Test Item Value Reference Range Interpretation Comments NA (test code = 138 mmol/L 135-145 5264102294) K (test code = 3.6 mmol/L 3.5-5.0 2565192455) CL (test code = 107 mmol/L 98-108 1855987510) CO2 TOTAL (test code = 24 mmol/L 23-31 8764134610) AGAP (test code = 2-16 8060118662) BUN (test code = 9 mg/dL 7-23 3476325146) GLUCOSE (test code = 117 mg/dL 70-110 H 4674288737) CREATININE (test code = 0.51 mg/dL 0.50-1.04 4966126384) TOTAL BILI (test code = 0.4 mg/dL 0.1-1.8 6733257125) CALCIUM (test code = 8.8 mg/dL 8.6-10.6 2510485667) T PROTEIN (test code = 5.8 g/dL 6.3-8.2 L 5293601927) ALBUMIN (test code = 3.4 g/dL 3.5-5.0 L 3841762363) ALK PHOS (test code = 53 U/L 34-122 4100022412) ALTv (test code = 40 U/L 5-35 H 1742-6) AST(SGOT) (test code = 37 U/L 13-40 6960927610) eGFR (test code = mL/min/1.73m2 4487388307) INGA (test code = INGA) Association of [...] tests). Lab Interpretation Abnormal (test code = 97662-7) [facility] Alliance[facility]IP[facility]2022-06-29 06:57:50 Test Item Value Reference Range Interpretation Comments LIPASE (test code = 6914452718) 106 U/L 0-220 Lab Interpretation (test code = Normal 16344-8) [facility] AlliancePO[facility] [id number] 04:27:00 Test Item Value Reference Range Interpretation Comments POCT PREG (test code = 1605) negative On board controls acceptable with present C Line (test code = 3574) POCT PREG LOT # (test code = 3575) [id number] POCT PREG TEST DATE (test 07/18/2023 code = 3576) Lab Interpretation (test code = Normal 04063-0) [facility] AllianceCULTURE, [id number] 10:05:04SPECIMEN NUMBER: [id number] CULTURE, URINE SPECIMEN NUMBER: [id number] SPECIMEN COMMENT: URINE SOURCE:URINE REPORT STATUS: FINAL ISOLATE NUMBER 1: ORGANISM: 03/05/2022 >100,000 CFU/ML STAPHYLOCOCCUS SPECIES IDENTIFICATION: 03/09/2022 STAPHYLOCOCCUS AUREUS STAPH. AUREUS AMOXICILLIN/CASENSITIVE <=4/2CEFAZOLIN SENSITIVE <=4NITROFURANTOIN SENSITIVE <=32OXACILLIN SENSITIVE <=0.25RIFAMPIN SENSITIVE <=1TETRACYCLINE SENSITIVE <=1TRIMETH/SULFA SENSITIVE *1 Note 1: <=0.5/9.5VANCOMYCIN SENSITIVE 1 NOTE: NUMBERS DISPLAYED REPRESENT MINIMUM INHIBITORY CONCENTRATION (IFEANYI) WHICH IS EXPRESSED IN MCG/ML. UNLESS OTHERWISE INDICATED, ALL TESTING PERFORMED [facility] [employer] [address] [place] [address] SHOES HAND SEWER: EARLE MONTAGUE M.D. [place] NUMBER [id number] [facility] [place]. [id number] 09/19 4TH GEN, RFLX [id number] 07:17:41 Test Item Value Reference Range Interpretation Comments HIV 09/19 4TH GEN, RFLX CONF (test NON-REACTIVE NON-REACTIVE code = 3514) HEPATITIS PANEL, [id number] 07:17:41 Test Item Value Reference Range Interpretation Comments HEPATITIS A IgM (test NON-REACTIVE NON-REACTIVE code = 54790) HEPATITIS B CORE IgM NON-REACTIVE NON-REACTIVE (test [...] HEPATITIS B: (test serology consistent code = 14728) with either ea rly acute hepatitis B (less than 6-12 weeks from init ial exposure) or chronic hepatit is Binfection (usu ally beyond 28-36 we eks after infection ). Hepatitis Bcore total antibody, hepatitis Be antigen and antibody may beinformative. Patient should be considered contagious at t his time. INTERPRETATION (NOTE) Hepatitis C HEPATITIS C: (test serology is code = 35609) consistent wit h exposure to hepatitis Cviru s. The CDC recomme nds performing a supplemental confirmatory te ston initial positiv e hepatitis C antibody tests. HCV PCR quantitativ ecan be used to conf irm these results o n a new sample (See MMWR, 2003;52 RR-3). UNLESS OTHERWISE INDICATED, ALL TESTING PERFORM [facility]. [address] [place] [address] 78 [phone] SHOES HAND SEWER: EARLE MONTAGUE M.D. CLIA NUMBER [id number] CAP ACCREDITATION N O. [id number] COMPREHENSIVE METABOLIC [id number] 05:18:29 Test Item Value Reference Range Interpretation Comments GLUCOSE (test code = 110 MG/DL 70-99 H 2216) BUN (test code = 11 MG/DL 6-20 2207) CREATININE (test 0.61 MG/DL 0.60-1.30 code = 2214) eGFR (2020 CKD-EPI) 114 >60 (test code = 90664) ML/MIN/1.73 CALC BUN/CREAT (test 18 RATIO 6-28 code = 2235) SODIUM (test code = 137 MEQ/L 040-546 5826) POTASSIUM (test code 3.5 MEQ/L 3.5-5.4 = 8) CHLORIDE (test code 99 MEQ/L 95-107 = 2215) CARBON DIOXIDE (test 25 MEQ/L 19-31 code [...] code = 14 U/L 5-40 2218) LIPID [id number] 05:18:29 Test Item Value Reference Range Interpretation [...] MOREINFORMATION , SEE CLIENT ANNOUNCE MENT AT [email or web address] RISK RATIO LDL/HDL 0.82 RATIO <3.22 (test code = 2238) HEMOGLOBIN [id number] 03:44:56 Test Item Value Reference Range Interpretation Comments HEMOGLOBIN A1c (test code = 96765) 4.7 % 4.2-5.6 CBC W/AUTO DIFF WITH [id number] 03:06:01 Test Item Value Reference Range Interpretation [...] RBCS 0.00 K/UL 0.00-0.11 (test code = 63535) CT, CTANGIO [id number] 08:42:00Unlisted Reason for Exam - Click Yes and Enter Reason Below->YesUnlisted Reason for Exam->CEREBRAL ANEURYSM SHERI [facility] PH[facility]LLIS SOUZA : 1980 Sex: FFINAL REPORT [...] measured as a percentage relative to the kar[place] artery distal to the stenosis (NASCET). CERVICAL [...] Mahan Verified Date/Time: 02/09/2021 08:42:54 Reading Location: [facility] Reading Room [address] [place] [address] [facility], CAROTID, [id number] 08:42:00Unlisted Reason for Exam - Click Yes and Enter Reason Below->YesUnlisted Reason for Exam->CEREBRAL AN[facility]URYSMFREMONT [facility]ITALName: HARLEY PHYLLIS JAKE : 1980 Sex: FFINAL REPORT CT, CAROTID, [...] measured as a percentage relative to the kar[place] artery distal to the stenosis (NASCET). CERVICAL [...] Mahan Verified Date/Time: 02/09/2021 08:42:54 Reading Location: [place] [address] "
[2022-04-28] MEDS ORDERED: CEFAZOLIN SODIUM 1 GM/VIAL ONE (02:31)
[2022-04-28] MEDS ORDERED: NA CHLORIDE 0.9% 100 ML ONE (02:32)
[2022-04-28] MEDS ORDERED: TETANUS & DIPHTHERIA TOX,ADULT 0.5 ML VIAL ONE (02:34)
[2022-04-28 02:36] LABS: Absolute Lymphocytes (CBC) 1.5 K/uL (0.7-4.9); Hematocrit 43.7 % (36.0-45.0); Lymphocytes % 31.9 % (15.3-44.8); MCV 83.6 fL (80-100); MPV 7.7 fL (7.6-11.3); RBC Red Blood Cell Count 5.23 M/uL (3.86-4.86)
[2022-04-28 02:41] LABS: Protime INR 1.04
[2022-04-28] MEDS ORDERED: NA CHLORIDE 0.9% 1,000 ML ONE (02:47)
[2022-04-28 02:59] LABS: ALT/SGPT 25 U/L (12-78); AST/SGOT 24 U/L (15-37); Albumin 4.6 g/dL (3.4-5.0); Alkaline Phosphatase 123 U/L (45-117); BUN Blood Urea Nitrogen 18 mg/dL (7-18); Bicarbonate 28 mmol/L (21-32); Bilirubin Direct 0.2 mg/dL (0-0.2); Bilirubin Total 0.8 mg/dL (0.2-1.0); Glomerular Filtration Rate 68 ml/min (=/>90); Glucose Level 105 mg/dL (74-106); Potassium 3.4 mmol/L (3.5-5.1); Protein, Total 8.9 g/dL (6.4-8.2); Sodium Level 140 mmol/L (136-145)
--- NOTE | 2022-04-28 03:22 | ER ---
Nurse's Notes [facility] Name: Krysten Gallegos Age: 41 yrs Sex: Female : 1980 Arrival Date: 04/28/2022 Time: 01:29 Bed 3 Private MD: Diagnosis: Laceration without foreign body of other part of head;Abuse of other non-psychoactive substances;Adverse effect of other narcotics;Other acute sinusitis Presentation: 04/28 01:38 Chief complaint: EMS states: Pt picked up from [facility] for fall injury with kd3 laceration to the forehead. Coronavirus screen: Vaccine status:. Ebola Screen: No symptoms or risks identified at this time. Initial Sepsis Screen: Does the patient meet any 2 criteria? No. Patient's initial sepsis screen is negative. Does the patient have a suspected source of infection? No. Patient's initial sepsis screen is negative. Risk Assessment: Do you want to hurt yourself or someone else? Patient reports no desire to harm self or others. Onset of symptoms was April 28, 2022. 01:38 Method Of Arrival: EMS: [facility] kd3 01:38 Acuity: SAMY 3 kd3 03:43 Care prior to arrival: dressing. Mechanism of Injury: Fall. Trauma event details: kl Injury occurred in the [facility], Injury occurred: in a public building. Injury occurred: April 28, 2022. Triage Assessment: 01:39 General: Appears uncomfortable, Behavior is anxious. Pain: Complains of pain in kd3 forehead. 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 - Social history:: Smoking status: unknown. - Immunization history: Last tetanus immunization: > 10 years ago. - Family history:: not pertinent. Screenin:40 Abuse screen: Denies threats or abuse. Denies injuries from another. Nutritional kd3 screening: No deficits noted. Tuberculosis screening: No symptoms or risk factors identified. Fall Risk Primary Survey: 03:20 NO uncontrolled hemorrhage observed. Breathing/Chest: Spontaneous respiratory effort, kl equal unlabored respirations, breath sounds clear bilaterally, regular pattern, symmetrical chest rise and fall. Circulation: No external hemorrhage present. Regular and strong central pulse, skin warm/dry/normal color. Disability Client is alert. Exposure/Environment: A warming method has been applied: A warm blanket has been provided to the patient. 03:43 Reassessment Breathing: Spontaneous respiratory effort, equal unlabored respirations, kl breath sounds clear bilaterally, regular pattern with symmetrical chest rise and fall. Secondary Survey: 03:20 HEENT: Face Other laceration to forehead. Gastrointestinal: No deficits noted. : No kl deficits noted. No signs and/or symptoms were reported regarding the genitourinary system. Musculoskeletal: No deficits noted. No signs and/or symptoms reported regarding the musculoskeletal system. Injury Description: Laceration. Assessment: 02:20 General: Appears in no apparent distress. unkempt, Behavior is drowsy, quiet. Pain: kl Denies pain. Neuro: Level of Consciousness is obeys commands, lethargic, Oriented to person, place. Cardiovascular: No deficits noted. Respiratory: No deficits noted. Airway is patent Trachea midline Respiratory effort is even, unlabored, Respiratory pattern is regular, symmetrical. GI: No deficits noted. No signs and/or symptoms were reported involving the gastrointestinal system. : No deficits noted. No signs and/or symptoms were reported regarding the genitourinary system. EENT: No deficits noted. Derm: Wound noted forehead. Musculoskeletal: No deficits noted. No signs and/or symptoms reported regarding the musculoskeletal system. Injury Description: Abrasion sustained to forehead. Vital Signs: 03:21 BP 151 / 82; Pulse 82; Resp 20; Temp 97(A); Pulse Ox 99% on R/A; Pain 0/10; kl Carlisle Coma Score: 03:21 Eye Response: spontaneous(4). Verbal Response: confused(4). Motor Response: obeys kl commands(6). Total: 14. Trauma Score (Adult): 03:21 Eye Response: spontaneous(1); Verbal Response: confused(1); Motor Response: obeys kl commands(2); Systolic BP: > 89 mm Hg(4); Respiratory Rate: 10 to 29 per min(4); Joe Score: 14; Trauma Score: 12 ED Course: 01:29 Patient arrived in ED. bb 01:30 Robbi Ellsworth MD is Attending Physician. alexia 01:33 Vandana Rainey, KRISTOPHER is Primary Nurse. kd3 01:39 Triage completed. kd3 01:39 Arm band placed on right wrist. kd3 02:09 CT Head C Spine In Process Unspecified. EDMS 02:15 Missed attempt(s): 20 gauge in left antecubital area. Bleeding controlled, band aid bb applied, catheter tip intact. 02:20 Initial lab(s) drawn, by me, sent to lab. Inserted saline lock: 20 gauge in left bb antecubital area, using aseptic technique. Blood collected. 03:41 IV discontinued, intact, bleeding controlled, No redness/swelling at site. Pressure kl dressing applied. 03:41 Dressings: Kerlix X 1; forehead 4X4s X 2; forehead neosporin applied. kl 03:43 No provider procedures requiring assistance completed. kl 03:44 Patient has correct armband on for positive identification. kl 03:44 Patient maintains SpO2 saturation greater than 95% on room air. kl 03:44 Thermoregulation: warm blanket given to patient. 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 Exp: 01/22/2024. Lot kl #: [id number]. } Route: IM; Site: left deltoid; 03:42 Follow up: Response: No adverse reaction kl 02:31 Drug: Ancef (cefazolin) 1 grams Route: IVPB; Site: left antecubital; kl 03:42 Follow up: Response: No adverse reaction kl 02:47 Drug: NS 0.9% 1000 ml Route: IV; Rate: 1 bolus; Site: left antecubital; kl 03:43 Follow up: IV Status: Completed infusion; IV Intake: 1000ml kl 03:13 Drug: Lidocaine-Epinephrine -1%: (1:100,000) 10 ml Volume: 20 ml; Route: Infiltration; kl 03:42 Follow up: Response: No adverse reaction kl 03:18 Drug: Neosporin ([id number]) Ointment 1 application Route: Topical; kl Site: affected area; Medication: 03:45 Vaccine Information Statement (VIS) provided today. Questions and/or concerns kl addressed. VIS edition date: April 23, 2006. Intake: 03:21 IV: 1000ml (IV Fluid); Total: 1000ml. kl 03:43 IV: 1000ml; Total: 2000ml. kl Outcome: 03:22 Discharge ordered by . alexia 03:42 Discharged to Law Enforcement kl 03:42 Condition: stable 03:42 Discharge instructions given to patient, police, Instructed on discharge instructions, medication usage, wound care, Demonstrated understanding of instructions, follow-up care, medications, wound care, Prescriptions given X 1. 03:44 Patient's length of stay was not longer than 2 hours. kl 03:45 Patient left the ED. kl Signatures: Dispatcher [employer] EDMS Linh Hernandez RN Robbi Sow MD MD cha Ballard, Brenda, RN RN Vandana Duran RN RN kd3
--- NOTE | 2022-04-28 03:22 | EDPHYS ---
Physician Documentation [facility] Name: Krysten Gallegos Age: 41 yrs Sex: Female : 1980 Arrival Date: 04/28/2022 Time: 01:29 Bed 3 Private MD: ED Physician Robbi Ellsworth HPI: 04/28 03:12 This 41 yrs old Female presents to ER via EMS with complaints of Fall Injury. [facility] 03:12 Details of fall: The patient fell from an upright position, while standing, while alexia walking. Onset: The symptoms/episode began/occurred just prior to arrival. Associated injuries: The patient sustained injury to the head. Severity of symptoms: At their worst the symptoms were mild, in the emergency department the symptoms are unchanged. The patient has not experienced similar symptoms in the past. 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 - Social history:: Smoking status: unknown. - Immunization history: Last tetanus immunization: > 10 years ago. - Family history:: not pertinent. ROS: 03:12 Constitutional: Negative for fever, chills, and weight loss, Eyes: Negative for injury, alexia pain, redness, and discharge, ENT: Negative for injury, pain, and discharge, Neck: Negative for injury, pain, and swelling, Cardiovascular: Negative for chest pain, palpitations, and edema, Respiratory: Negative for shortness of breath, cough, wheezing, and pleuritic chest pain, Abdomen/GI: Negative for abdominal pain, nausea, vomiting, diarrhea, and constipation, Back: Negative for injury and pain, : Negative for injury, bleeding, discharge, and swelling, MS/Extremity: Negative for injury and deformity, Neuro: Negative for headache, weakness, numbness, tingling, and seizure, Psych: Negative for depression, anxiety, suicide ideation, homicidal ideation, and hallucinations, Allergy/Immunology: Negative for hives, rash, and allergies, Endocrine: Negative for neck swelling, polydipsia, polyuria, polyphagia, and marked weight changes. 03:12 Skin: Positive for laceration(s), of the . Exam: 03:12 Constitutional: This is a well developed, well nourished patient who is awake, alert, alexia and in no acute distress. Eyes: Pupils equal round and reactive to light, extra-ocular motions intact. Lids and lashes normal. Conjunctiva and sclera are non-icteric and not injected. Cornea within normal limits. Periorbital areas with no swelling, redness, or edema. ENT: Nares patent. No nasal discharge, no septal abnormalities noted. Tympanic membranes are normal and external auditory canals are clear. Oropharynx with no redness, swelling, or masses, exudates, or evidence of obstruction, uvula midline. Mucous membranes moist. Neck: Trachea midline, no thyromegaly or masses palpated, and no cervical lymphadenopathy. Supple, full range of motion without nuchal rigidity, or vertebral point tenderness. No Meningismus. Chest/axilla: Normal chest wall appearance and motion. Nontender with no deformity. No lesions are appreciated. Cardiovascular: Regular rate and rhythm with a normal S1 and S2. No gallops, murmurs, or rubs. Normal PMI, no JVD. No pulse deficits. Respiratory: Lungs have equal breath sounds bilaterally, clear to auscultation and percussion. No rales, rhonchi or wheezes noted. No increased work of breathing, no retractions or nasal flaring. Abdomen/GI: Soft, non-tender, with normal bowel sounds. No distension or tympany. No guarding or rebound. No evidence of tenderness throughout. Back: No spinal tenderness. No costovertebral tenderness. Full range of motion. Skin: Warm, dry with normal turgor. Normal color with no rashes, no lesions, and no evidence of cellulitis. MS/ Extremity: Pulses equal, no cyanosis. Neurovascular intact. Full, normal range of motion. Neuro: Awake and alert, GCS 15, oriented to person, place, time, and situation. Cranial nerves II-XII grossly intact. Motor strength 5/5 in all extremities. Sensory grossly intact. Cerebellar exam normal. Normal gait. 03:12 Head/face: Noted is a laceration(s), that is deep, 2.5 cm(s). Vital Signs: 03:21 BP 151 / 82; Pulse 82; Resp 20; Temp 97(A); Pulse Ox 99% on R/A; Pain 0/10; kl Joe Coma Score: 03:21 Eye Response: spontaneous(4). Verbal Response: confused(4). Motor Response: obeys kl commands(6). Total: 14. Trauma Score (Adult): 03:21 Eye Response: spontaneous(1); Verbal Response: confused(1); Motor Response: obeys kl commands(2); Systolic BP: > 89 mm Hg(4); Respiratory Rate: 10 to 29 per min(4); Ellsworth Score: 14; Trauma Score: 12 Laceration: 03:37 Wound Repair of 2.5cm ( 1.0in ) subcutaneous laceration to forehead. Irregularly alexia shaped.. Distal neuro/vascular/tendon intact. Anesthesia: Local anesthetic administered with 3 mls of 1% lidocaine w/ Epi. Wound prep: Simple cleansing by me. Skin closed with 5 5-0 Prolene using interrupted sutures and sterile technique. Dressed with Neosporin, non-adherent dressing. Patient tolerated well. MDM: 01:33 Patient medically screened. alexia 03:12 Differential diagnosis: abrasion, closed head injury, contusion, laceration, sprain, alexia strain. Data reviewed: vital signs, nurses notes, lab test result(s), EKG, radiologic studies, CT scan. 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 Test interpretation: by ED physician or midlevel provider: ECG. Counseling: I had a detailed discussion with the patient and/or guardian regarding: the historical points, exam findings, and any diagnostic results supporting the discharge/admit diagnosis, lab results, radiology results, the need for outpatient follow up, for definitive care, a family practitioner. 04/28 01:32 Order name: Acetaminophen; Complete Time: 03:12 alexia 04/28 01:32 Order name: Basic Metabolic Panel; Complete Time: 03:12 alexia 04/28 01:32 Order name: CBC with Diff; Complete Time: 03:12 alexia 04/28 01:32 Order name: ETOH Level; Complete Time: 03:12 alexia 04/28 01:32 Order name: Hepatic Function; Complete Time: 03:12 alexia 04/28 01:32 Order name: PT-INR; Complete Time: 03:12 [facility] 04/28 01:32 Order name: Ptt, Activated; Complete Time: 03:12 [facility] 04/28 01:32 Order name: Salicylate; Complete Time: 03:12 [facility] 04/28 01:33 Order name: CT Head C Spine [facility] 04/28 01:32 Order name: EKG; Complete Time: 01:35 [facility] 04/28 01:32 Order name: EKG - Nurse/Tech [facility] 04/28 01:33 Order name: IV Saline Lock; Complete Time: 02:30 [facility] 04/28 01:33 Order name: Labs collected and sent; Complete Time: 02:30 [facility] 04/28 01:33 Order name: Suicide Screening ([place]) [facility] 04/28 01:33 Order name: Urine Dipstick-Ancillary (obtain specimen) [facility] 04/28 01:33 Order name: Urine Test (obtain specimen) [facility] 04/28 01:33 Order name: Dressing - Wound; Complete Time: 03:18 [facility] 04/28 01:33 Order name: Gloves, Sterile; Complete Time: 03:12 [facility] 04/28 01:33 Order name: Prolene, Sutures; Complete Time: 03:12 [facility] 04/28 01:33 Order name: Setup Suture Tray; Complete Time: 03:12 [facility] Administered Medications: 02:31 Drug: Tetanus Toxoid,Adsorbed 0.5 ml {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 Exp: 01/22/2024. Lot kl #: [id number]. } Route: IM; Site: left deltoid; 03:42 Follow up: Response: No adverse reaction kl 02:31 Drug: Ancef (cefazolin) 1 grams Route: IVPB; Site: left antecubital; kl 03:42 Follow up: Response: No adverse reaction kl 02:47 Drug: NS 0.9% 1000 ml Route: IV; Rate: 1 bolus; Site: left antecubital; kl 03:43 Follow up: IV Status: Completed infusion; IV Intake: 1000ml kl 03:13 Drug: Lidocaine-Epinephrine -1%: (1:100,000) 10 ml Volume: 20 ml; Route: Infiltration; kl 03:42 Follow up: Response: No adverse reaction kl 03:18 Drug: Neosporin ([id number]) Ointment 1 application Route: Topical; kl Site: affected area; Disposition Summary: 04/28/22 03:22 Discharge Ordered Location: Home alexia Problem: new alexia Symptoms: have improved alexia Condition: Stable alexia Diagnosis - Laceration without foreign body of other part of head alexia - Abuse of other non-psychoactive substances alexia - Adverse effect of other narcotics alexia - Other acute sinusitis alexia Followup: alexia - With: Private Physician - When: 2 - 3 days - Reason: Recheck today's complaints, Continuance of care, Re-evaluation by your physician Discharge Instructions: - Discharge Summary Sheet alexia - Finding Treatment for Addiction alexia - Substance Use Disorder alexia - Sinusitis, Adult alexia - Supporting Someone With an Addiction alexia - Sinusitis, Adult, [id number] alexia - Substance Use Disorder and Mental Illness alexia - Supporting Someone With Substance Use Disorder alexia Forms: - Medication Reconciliation Form alexia - Thank You Letter alexia - Antibiotic Education alexia - Prescription Opioid Use alexia Prescriptions: - Augmentin 875-125 mg Oral Tablet - take 1 tablet by ORAL route every 12 hours for 10 days; 20 tablet; Refills: 0, alexia Product Selection Permitted Signatures: Dispatcher [employer] Linh Strange, RN Robbi Sow MD MD cha Doucette, Kyli RN RN kd3
[2022-04-28 05:09] VITALS: BP 151/82; TEMP 97; O2SAT 99
--- NOTE | 2022-04-28 16:56 | RAD REPORT ---
EXAM DESCRIPTION: CT - Head C Spine Mpr Wo Con - 04/28/2022 5:50 am CLINICAL HISTORY: The patient is 41 years old and is Female; FALL TECHNIQUE: Axial computed tomography images of the head/brain and cervical spine without intravenous contrast. Sagittal and coronal reformatted images were created and reviewed. This CT exam was pe rformed using one or more of the following dose reduction techniques: automated exposure control, a djustment of the mA and/or kV according to patient size, and/or use of iterative reconstruction techn ique. COMPARISON: CT of the head April 27, 2022 FINDINGS: BRAIN: Unremarkable. No hemorrhage. No significant white matter disease. No edema. VENTRICLES: Unremarkable. No ventriculomegaly. SKULL: No acute fracture. SINUSES: Complete opacification of right maxillary sinus is noted. MASTOID AIR CELLS: Unremarkable as visualized. No mastoid effusion. VERTEBRAE: The vertebral body heights and alignment are maintained. No acute fracture. DISCS/SPINAL CANAL/NEURAL FORAMINA: The intervertebral disc spaces are maintained. No spinal vikram l stenosis. SOFT TISSUES: The soft tissues are normal. LUNG APICES: Cystic change within the lung apices is noted. IMPRESSION: 1. No acute intracranial findings. 2. No fracture or malalignment of the cervical spine. Electronically signed by: Ivelisse Davis MD 04/28/2022 2:38 AM CDT Due to temporary technical issues with the PACS/Fluency reporting system, reports are being signed by the in house radiologists without review as a courtesy to insure prompt reporting. The interpreting radiologist is fully responsible for the content of the report.
== END 2022-04-28 03:45 | disposition home or self-care (01) ==
LOC: ER 01:28
PROC: 0JQ10ZZ Repair Face Subcutaneous Tissue and Fascia, Open Approach (ICD-10-PCS; principal; 2022-04-28)
DX: S01.81XA Laceration without foreign body of other part of head, initial encounter (principal); J01.80 Other acute sinusitis; F55.8 Abuse of other non-psychoactive substances; T40.695A Adverse effect of other narcotics, initial encounter; I10 Essential (primary) hypertension; Z23 Encounter for immunization; Z88.2 Allergy status to sulfonamides
CPT/HCPCS: 36415; 70450; 72125; 80048; 80076; 80320; 80329; 85025; 85610; 85730; 90471; 90714; 96361; 96374; 99284; J0690; J7030

== ENCOUNTER 2022-04-28 05:17 | Emergency (ER) | payer SELFPAY ==
--- OUTSIDE RECORDS SUMMARY | 2022-04-28 05:21 | XMS REPORT | Continuity of Care Document ---
:1980 Author Organization [facility] t Address [address] [place] [address] Care Team Providers Name Role Phone PCP, PATIENT DOES NOT HAVE A Primary Care Physician Unavaila Tai Bustamante Attending Clinician Tai OROZCO Attending Clinician Unavailable GABRIELLA SHORT Attending Clinician Unavailable Tai OROZCO Admitting Clinician Unavailable Payers Payer Name Policy Type Policy Number Effective Date Expiration Date Jorgito JARAMILLO [id number] 2020 00:00:00 Problems Condition Condition Condition Status Onset Resolution Last Treating Co mments Source Name Details Category Date Date Treatment Clinician Date No known No known Disease Unive rs active active ity of problems problems [facility] Allergies, Adverse Reactions, Alerts Allergy Allergy Status [...] Active Univers ALLERGIE Class ity of S [facility] Social History Social Habit Start Date Stop Date Quantity Comments Source Exposure to 2022-03-05 2022-03-15 Not sure [facility] SARS-CoV-2 (event) 00:00:00 23:10:00 Medica l Branch Sex Assigned At [birth year] [facility] 00:00:00 00:00:00 Medical Branch Smoking Status Start Date Stop Date Source Unknown if ever smoked [facility] Medications Ordered Filled Start Stop Current Ordering [...] On 03/16/22 at 0315, STAT ondansetron Yes [id number] 4mg Take 1 Univers 4 mg 03-16 tablet by ity of disintegrat 00:00: mouth [place] ing tablet 00 every 8 Medica l (eight) Branch hours as needed for Nausea and Vomiting (N/V). cephALEXin 2021- Yes [id number] 500mg Take 1 Univers (KEFLEX) 03-16 07-10 capsule by ity of 500 mg 00:00: 04:59 mouth 3 [place] capsule 00 :00 (three) Medical times Branch daily for 10 days. Vital Signs Vital Name Observation Time Observation Value Comments Source Systolic blood 2022-03-16 08:00:00 109 mm[Hg] [facility]iver [facility] Diastolic blood 2022-03-16 08:00:00 77 [facility]Hg[facility] 2022-03-16 08:00:00 85 [facility] Respiratory rate 2022-03-16 08:00:00 26 /min [facility] Oxygen saturation in 2022-03-16 08:00:00 96 /min University Arterial blood by [facility] Pulse oximetry Branch Body temperature 2022-03-16 05:34:00 36.61 [facility] Body height 2022-03-16 04:15:00 157.5 cm [facility] Body weight 2022-03-16 04:15:00 65.772 kg [facility] BMI 2022-03-16 04:15:00 26.52 kg/m2 [facility] Procedures Procedure Date / Time Performing Clinician Source Performed CT ABDOMEN PELVIS WO 2022-03-16 06:42:00 Tai Orozco [facility] CONTRAST [facility] LIPASE 2022-03-16 06:23:[address] [facility] MAGNESIUM 2022-03-16 06:23:[address] [facility] COMP. METABOLIC PANEL 2022-03-16 06:23:00 Tai Orozco [facility] ([id number]) [facility] CBC WITH DIFF 2022-03-16 06:23:00 Tai Orozco [facility] URINE DRUG (IMMUNOASSAY) 2022-03-16 05:39:00 Tai Orozco [facility] DRUG [facility] SCREEN URINALYSIS 2022-03-16 04:27:[address] [facility] POCT TEST 2022-03-16 04:27:00 Tai Orozco [facility] CONSENT/REFUSAL FOR 2022-03-16 04:02:50 Doctor Unassigned, No Un [facility] DIAGNOSIS AND TREATMENT Name Medical [place] Encounters Start End Encounter Admission Attending Care Care Encounter Source Date/Time Date/Time Type Type Clinicians Facility Department ID 2022-03-15 2022-03-16 Emergency Tai Orozco [facility] [id number] [facility] 23:22:00 03:22:00 Angelica PLATA [id number] i [facility] [id number] [facility] [id number] [place] [address] Branch 2022-03-15 2022-03-16 Emergency X Tai OROZCO [facility] ERT [id number] Univers 23:22:00 03:22:00 ity of [facility] 2021-02-08 2021-02-08 Outpatient DEJA, SLEMaryana SLE [id number] [facility] 00:00:00 00:00:00 GABRIELLA 2021-02-08 2021-02-08 Outpatient EL SLEH [facility] [id number] [facility] 00:00:00 00:00:00 2021-01-29 2021-01-29 Outpatient DEJA, SLEH SLEH [id number] [facility] 00:00:00 00:00:00 GABRIELLA 2021-01-29 2021-01-29 Outpatient EL DEJA, SLEH SLE [id number] [facility]H 00:00:00 00:00:00 GABRIELLA Results Test [...] 32.6 g/dL 31.6-35.1 RDW-SD (test code = 55450-8) 44.4 fL 39.0-49.9 RDW-CV (test code = 788-0) 13.6 % 12.0-15.5 PLT (test code = 777-3) See_Comment [Au tomated message] The system which ge nerated this result transmit benny reference range: 166 - 35 8 10*3/?L. The reference range was not used to interpret th is result as normal/abnormal . MPV (test code = 96099-6) 9.7 fL 9.5-12.9 NRBC/100 WBC (test code = See_Comment [ Automated message] The 1221309410) system which ge nerated this result transmit benny reference range: 0.0 - 10 .0 /100 WBCs. The reference r emerson was not used to interpr et this result as normal/abnor mal. NRBC x10^3 (test code = <0.01 See_Comment [Au tomated message] The 1001060907) system which ge nerated this result transmit benny reference range: 10*3/?L. The reference range was not u sed to interpret this result as normal/abnormal . GRAN MAT (NEUT) % (test code 45.3 % = 770-8) IMM GRAN % (test code = 0.30 % 8565214801) LYMPH % (test code = 736-9) 40.9 % MONO % (test code = 5905-5) 7.8 % EOS % (test code = 713-8) 5.2 % BASO % (test code = 706-2) 0.5 % GRAN MAT x10^3(ANC) (test 1.75 10*3/uL 1.88-7.09 L code = 5349802491) IMM GRAN x10^3 (test code = <0.03 0.00-0.06 4817485175) LYMPH x10^3 (test code = 1.58 10*3/uL 1.32-3.29 731-0) MONO x10^3 (test code = 0.30 10*3/uL 0.33-0.92 L 742-7) EOS x10^3 (test code = 0.20 10*3/uL 0.03-0.39 711-2) BASO x10^3 (test code = <0.03 0.01-0.07 704-7) Lab Interpretation (test Abnormal code = 01187-7) [facility] [place] [facility] 06:58:10 Test Item Value Reference Range Interpretation Comments MAGNESIUM (test code = 9793091736) 1.7 mg/dL 1.7-2.4 Lab Interpretation (test code = Normal 34053-1) [facility] [place] [facility]. METABOLIC PANEL (92785)2022-03-16 06:57:50 Test Item Value Reference Range Interpretation Comments NA (test code = 138 mmol/L 135-145 5399171116) K (test code = 3.6 mmol/L 3.5-5.0 1323372010) CL (test code = 107 mmol/L 98-108 5245288570) CO2 TOTAL (test code = 24 mmol/L 23-31 5364318422) AGAP (test code = 2-16 9609068699) BUN (test code = 9 mg/dL 7-23 1091196050) GLUCOSE (test code = 117 mg/dL 70-110 H 0975971916) CREATININE (test code = 0.51 mg/dL 0.50-1.04 0216720442) TOTAL BILI (test code = 0.4 mg/dL 0.1-1.0 2603951108) CALCIUM (test code = 8.8 mg/dL 8.6-10.6 4291756006) T PROTEIN (test code = 5.8 g/dL 6.3-8.2 L 3419961168) ALBUMIN (test code = 3.4 g/dL 3.5-5.0 L 4103275777) ALK PHOS (test code = 53 U/L 34-122 2886889599) ALTv (test code = 40 U/L 5-35 H 1742-6) AST(SGOT) (test code = 37 U/L 13-40 8202221571) eGFR (test code = mL/min/1.73m2 7331868679) INGA (test code = INGA) Association of [...] tests). Lab Interpretation Abnormal (test code = 36083-1) [facility] [place] [facility]2022-06-29 06:57:50 Test Item Value Reference Range Interpretation Comments LIPASE (test code = 2740173217) 106 U/L 0-220 Lab Interpretation (test code = Normal 70640-8) [facility] [place] [facility]PO[facility] [id number] 04:27:00 Test Item Value Reference Range Interpretation Comments POCT PREG (test code = 1605) negative On board controls acceptable with present C Line (test code = 3574) POCT PREG LOT # (test code = 3575) [id number] POCT PREG TEST DATE (test 07/18/2023 code = 3576) Lab Interpretation (test code = Normal 71461-8) [facility] [place] [facility] CampusCULTURE, [id number] 10:05:04SPECIMEN NUMBER: [id number] CULTURE, URINE SPECIMEN NUMBER: [id number] SPECIMEN COMMENT: URINE SOURCE:URINE REPORT STATUS: FINAL ISOLATE NUMBER 1: ORGANISM: 03/05/2022 >100,000 CFU/ML STAPHYLOCOCCUS SPECIES IDENTIFICATION: 03/09/2022 STAPHYLOCOCCUS AUREUS STAPH. AUREUS AMOXICILLIN/CASENSITIVE <=4/2CEFAZOLIN SENSITIVE <=4NITROFURANTOIN SENSITIVE <=32OXACILLIN SENSITIVE <=0.25RIFAMPIN SENSITIVE <=1TETRACYCLINE SENSITIVE <=1TRIMETH/SULFA SENSITIVE *1 Note 1: <=0.5/9.5VANCOMYCIN SENSITIVE 1 NOTE: NUMBERS DISPLAYED REPRESENT MINIMUM INHIBITORY CONCENTRATION (IFEANYI) WHICH IS EXPRESSED IN MCG/ML. UNLESS OTHERWISE INDICATED, ALL TESTING PERFORMED [facility] PATHOLOGY [employer] [address] [place] [address] HEAD OF QUALITY: EARLE MONTAGUE M.D. [place] NUMBER [id number] [facility] [place]. [id number] 09/19 4TH GEN, RFLX [id number] 07:17:41 Test Item Value Reference Range Interpretation Comments HIV 09/19 4TH GEN, RFLX CONF (test NON-REACTIVE NON-REACTIVE code = 3514) HEPATITIS PANEL, [id number] 07:17:41 Test Item Value Reference Range Interpretation Comments HEPATITIS A IgM (test NON-REACTIVE NON-REACTIVE code = 83627) HEPATITIS B CORE IgM NON-REACTIVE NON-REACTIVE (test [...] HEPATITIS B: (test serology consistent code = 14886) with either ea rly acute hepatitis B (less than 6-12 weeks from init ial exposure) or chronic hepatit is Binfection (usu ally beyond 28-36 we eks after infection ). Hepatitis Bcore total antibody, hepatitis Be antigen and antibody may beinformative. Patient should be considered contagious at t his time. INTERPRETATION (NOTE) Hepatitis C HEPATITIS C: (test serology is code = 91631) consistent wit h exposure to hepatitis Cviru s. The CDC recomme nds performing a supplemental confirmatory te ston initial positiv e hepatitis C antibody tests. HCV PCR quantitativ ecan be used to conf irm these results o n a new sample (See MMWR, 2003;52 RR-3). UNLESS OTHERWISE INDICATED, ALL TESTING PERFORM [facility], [facility] [address] [place] [address] 78 4 HEAD OF QUALITY: EARLE MONTAGUE M.D. CLIA NUMBER [id number] [place] ACCREDITATION N O. [id number] COMPREHENSIVE METABOLIC [id number] 05:18:29 Test Item Value Reference Range Interpretation Comments GLUCOSE (test code = 110 MG/DL 70-99 H 2216) BUN (test code = 11 MG/DL 6-20 2207) CREATININE (test 0.61 MG/DL 0.60-1.30 code = 2214) eGFR (2020 CKD-EPI) 114 >60 (test code = 50410) ML/MIN/1.73 CALC BUN/CREAT (test 18 RATIO 6-28 code = 2235) SODIUM (test code = 137 MEQ/L 441-955 6477) POTASSIUM (test code 3.5 MEQ/L 3.5-5.4 = [...] code = 14 U/L 5-40 2218) LIPID [id number] 05:18:29 Test Item Value Reference Range Interpretation [...] MOREINFORMATION , SEE CLIENT ANNOUNCE MENT AT [email or web address] RISK RATIO LDL/HDL 0.82 RATIO <3.22 (test code = 2238) HEMOGLOBIN [id number] 03:44:56 Test Item Value Reference Range Interpretation Comments HEMOGLOBIN A1c (test code = 70106) 4.7 % 4.2-5.6 CBC W/AUTO DIFF WITH [id number] 03:06:01 Test Item Value Reference Range Interpretation [...] RBCS 0.00 K/UL 0.00-0.11 (test code = 73890) CT, CTANGIO [id number] 08:42:00Unlisted Reason for Exam - Click Yes and Enter Reason Below->YesUnlisted Reason for Exam->CEREBRAL ANEURYSM [facility] : 1980 Sex: [...] measured as a percentage relative to the qawalangin artery distal to the stenosis (NASCET). CERVICAL [...] Mahan Verified Date/Time: 02/09/2021 08:42:54 Reading Location: [facility] Reading Room [address] [place] [address] [facility] ASSOC[facility]ATIONT, CAROTID, [id number] 08:42:00Unlisted Reason for Exam - Click Yes and Enter Reason Below->YesUnlisted Reason for Exam->CEREBRAL ANEURYSMMEMORIAL [facility] GARDENAName: HARLEY PHYLLIS JAKE : 1980 Sex: FFINAL [...] measured as a percentage relative to the qawalangin artery distal to the stenosis (NASCET). CERVICAL [...] Mahan Verified Date/Time: 02/09/2021 08:42:54 Reading Location: [place] [address] "
--- NOTE | 2022-04-28 06:57 | ER ---
Nurse's Notes [facility] Name: Krysten Gallegos Age: 41 yrs Sex: Female : 1980 Arrival Date: 04/28/2022 Time: 05:21 Bed 3 Private MD: Diagnosis: Repeated falls;Abuse of other non-psychoactive substances;Adverse effect of other narcotics;Laceration without foreign body of other part of head Presentation: 04/28 05:21 Chief complaint: EMS states: fell in [facility] cell opening up laceration repair to left kl forehead no active bleeding at this time. Coronavirus screen: Vaccine status: Patient reports being unvaccinated. unknown. Ebola Screen: Patient negative for fever greater than or equal to 101.5 degrees Fahrenheit, and additional compatible Ebola Virus Disease symptoms. Initial Sepsis Screen: Does the patient meet any 2 criteria? No. Patient's initial sepsis screen is negative. Does the patient have a suspected source of infection? No. Patient's initial sepsis screen is negative. 05:21 Method Of Arrival: EMS: [facility] Historical: - Allergies: 05:23 Sulfa (Sulfonamide Antibiotics); kl - Home Meds: 05:23 citalopram oral [Active]; Suboxone [Active]; - PMHx: 05:23 Aneurysm; brain aneurysm; Hypertension; IV DRUG USE; kl - Immunization history:: Adult Immunizations not up to date. - Social history:: Smoking status: unknown. Screenin:25 Abuse screen: Denies threats or abuse. Nutritional screening: No deficits noted. Tuberculosis screening: No symptoms or risk factors identified. Fall Risk Fall in past 12 months (25 points). Secondary diagnosis (15 points) AMS. Mental Status- Overestimates/Forgets Limitations (15 pts.). Assessment: 05:24 General: Appears in no apparent distress. unkempt, Behavior is drowsy, listless, kl uncooperative. Pain: Denies pain. Neuro: Cheema Agitation-Sedation Scale (RASS): -3 Moderate Sedation Level of Consciousness is lethargic. Cardiovascular: No deficits noted. Respiratory: No deficits noted. Airway is patent Trachea midline Respiratory effort is even, unlabored. GI: No deficits noted. No signs and/or symptoms were reported involving the gastrointestinal system. : No deficits noted. No signs and/or symptoms were reported regarding the genitourinary system. EENT: No deficits noted. No signs and/or symptoms were reported regarding the EENT system. Derm: Wound noted left forehead. 07:25 Reassessment: Patient appears in no apparent distress at this time. No changes from tw2 previously documented assessment. Patient and/or family updated on plan of care and expected duration. Pain level reassessed. Patient is alert, oriented x 3, equal unlabored respirations, skin warm/dry/pink. Vital Signs: 05:21 BP 151 / 105; Pulse 73; Resp 18; Temp 97.7; kl 07:25 BP 160 / 90; Pulse 72; Resp 17; Pulse Ox 100% on R/A; tw2 ED Course: 05:21 Patient arrived in ED. 05:22 Robbi Ellsworth MD is Attending Physician. [facility] 06:41 CT Head Brain wo Cont In Process Unspecified. EDWY 07:25 Patient did not have IV access during this emergency room visit. tw2 Administered Medications: 05:35 Drug: Neosporin (dsdlwqvn-ovpnzsgqrj-jhgnsiukb) Ointment 1 application Route: Topical; kl Site: affected area; 07:17 Not Given (Physician Discretion): NS 0.9% 1000 ml IV at 1 bolus Per protocol; 1000 mL kl bolus Outcome: 06:56 Discharge ordered by . [facility] 07:25 Discharged to Law Enforcement tw2 07:25 Condition: stable 07:25 Discharge instructions given to patient, police. 07:26 Patient left the ED. tw2 Signatures: Dispatcher [employer] Linh Strange, RN Robbi Sow MD MD cha Wise, Tara, RN RN tw2
--- NOTE | 2022-04-28 06:57 | EDPHYS ---
Physician Documentation [facility] Name: Krysten Gallegos Age: 41 yrs Sex: Female : 1980 Arrival Date: 04/28/2022 Time: 05:21 Bed 3 Private MD: ED Physician Robbi Ellsworth HPI: 04/28 05:49 This 41 yrs old Female presents to ER via EMS with complaints of FALL , HIT alexia HEAD, ON DRUGS. 05:49 Details of fall: The patient fell from an upright position, while walking. Onset: The alexia symptoms/episode began/occurred just prior to arrival. Associated injuries: The patient sustained injury to the head, contusion. Severity of symptoms: At their worst the symptoms were mild, in the emergency department the symptoms are unchanged. The patient has not experienced similar symptoms in the past. Historical: - Allergies: 05:23 Sulfa (Sulfonamide Antibiotics); kl - Home Meds: 05:23 citalopram oral [Active]; Suboxone [Active]; kl - PMHx: 05:23 Aneurysm; brain aneurysm; Hypertension; IV DRUG USE; kl - Immunization history:: Adult Immunizations not up to date. - Social history:: Smoking status: unknown. ROS: 05:50 Constitutional: Negative for fever, chills, and weight loss, Eyes: Negative for injury, alexia pain, redness, and discharge, ENT: Negative for injury, pain, and discharge, Neck: Negative for injury, pain, and swelling, Cardiovascular: Negative for chest pain, palpitations, and edema, Respiratory: Negative for shortness of breath, cough, wheezing, and pleuritic chest pain, Abdomen/GI: Negative for abdominal pain, nausea, vomiting, diarrhea, and constipation, Back: Negative for injury and pain, : Negative for injury, bleeding, discharge, and swelling, MS/Extremity: Negative for injury and deformity, Neuro: Negative for headache, weakness, numbness, tingling, and seizure, Psych: Negative for depression, anxiety, suicide ideation, homicidal ideation, and hallucinations, Allergy/Immunology: Negative for hives, rash, and allergies, Endocrine: Negative for neck swelling, polydipsia, polyuria, polyphagia, and marked weight changes, Hematologic/Lymphatic: Negative for swollen nodes, abnormal bleeding, and unusual bruising. 05:50 Skin: Positive for laceration(s), of the forehead. Exam: 05:50 Constitutional: This is a well developed, well nourished patient who is awake, alert, alexia and in no acute distress. Head/Face: Normocephalic, atraumatic. Eyes: Pupils equal round and reactive to light, extra-ocular motions intact. Lids and lashes normal. Conjunctiva and sclera are non-icteric and not injected. Cornea within normal limits. Periorbital areas with no swelling, redness, or edema. ENT: Nares patent. No nasal discharge, no septal abnormalities noted. Tympanic membranes are normal and external auditory canals are clear. Oropharynx with no redness, swelling, or masses, exudates, or evidence of obstruction, uvula midline. Mucous membranes moist. Neck: Trachea midline, no thyromegaly or masses palpated, and no cervical lymphadenopathy. Supple, full range of motion without nuchal rigidity, or vertebral point tenderness. No Meningismus. Chest/axilla: Normal chest wall appearance and motion. Nontender with no deformity. No lesions are appreciated. Cardiovascular: Regular rate and rhythm with a normal S1 and S2. No gallops, murmurs, or rubs. Normal PMI, no JVD. No pulse deficits. Respiratory: Lungs have equal breath sounds bilaterally, clear to auscultation and percussion. No rales, rhonchi or wheezes noted. No increased work of breathing, no retractions or nasal flaring. Abdomen/GI: Soft, non-tender, with normal bowel sounds. No distension or tympany. No guarding or rebound. No evidence of tenderness throughout. Back: No spinal tenderness. No costovertebral tenderness. Full range of motion. MS/ Extremity: Pulses equal, no cyanosis. Neurovascular intact. Full, normal range of motion. Psych: Awake, alert, with orientation to person, place and time. Behavior, mood, and affect are within normal limits. 05:50 Skin: injury, laceration(s), the wound is approximately 3 cm(s), with a depth of .25 cm(s), of the forehead. 05:50 Neuro: Orientation: to person, place, Not oriented to time, situation, Mentation: slow to respond, Memory: immediate memory is impaired, remote memory is impaired, unable to test, the patient is clinically intoxicated, Cranial nerves: grossly normal, is grossly normal based on the patient's age, no acute changes, Cerebellar function: unable to test, Motor: moves all fours, Sensation: no obvious gross deficits, appropriate no acute changes, Gait: not tested. seizure activity, is not displayed by the patient. Vital Signs: 05:21 BP 151 / 105; Pulse 73; Resp 18; Temp 97.7; kl 07:25 BP 160 / 90; Pulse 72; Resp 17; Pulse Ox 100% on R/A; tw2 MDM: 05:26 Patient medically screened. [facility] 04/28 05:25 Order name: EKG - Nurse/Tech [facility] 04/28 06:03 Order name: CT Head Brain wo Cont 04/28 05:25 Order name: IV Saline Lock [facility] 04/28 05:25 Order name: Labs collected and sent [facility] 04/28 05:25 Order name: Suicide Screening ([place]) [facility] 04/28 05:25 Order name: Urine Dipstick-Ancillary (obtain specimen) [facility] 04/28 05:25 Order name: Wound Care: BAND AID; Complete Time: 05:51 alexia Administered Medications: 05:35 Drug: Neosporin (chtpqhjd-ywqwbtktdt-eywhmcbay) Ointment 1 application Route: Topical; kl Site: affected area; 07:17 Not Given (Physician Discretion): NS 0.9% 1000 ml IV at 1 bolus Per protocol; 1000 mL kl bolus Disposition Summary: 04/28/22 06:56 Discharge Ordered Location: Home alexia Problem: new alexia Symptoms: have improved alexia Condition: Stable alexia Diagnosis - Repeated falls alexia - Abuse of other non-psychoactive substances alexia - Adverse effect of other narcotics alexia - Laceration without foreign body of other part of head alexia Followup: alexia - With: Private Physician - When: 2 - 3 days - Reason: Recheck today's complaints, Continuance of care, Re-evaluation by your physician Discharge Instructions: - Discharge Summary Sheet alexia - Finding Treatment for Addiction alexia - Head Injury, Adult alexia - Fall Prevention in the Home, Adult alexia - Laceration Care, Adult alexia - Substance Use Disorder alexia - Laceration Care, Adult, Tnpf-vf-Utid alexia - Fall Prevention in the Home, Adult, Abic-bo-Wrts alexia - Head Injury, Adult, Ekag-ip-Swdi alexia - Fall Prevention in Hospitals, Adult alexia - Substance Use Disorder and Mental Illness alexia - Supporting Someone With Substance Use Disorder alexia Forms: - Medication Reconciliation Form alexia - Thank You Letter alexia - Antibiotic Education alexia - Prescription Opioid Use alexia Signatures: Dispatcher [employer] EDLinh Morocho RN RN kl Anderson, Corey, MD MD cha Corrections: (The following items were deleted from the chart) 06:35 05:35 ACETAMINOPHEN+C.LAB.BRZ ordered. EDMS EDMS 06:35 05:35 BASIC METABOLIC PANEL+C.LAB.BRZ ordered. EDMS EDMS 06:35 05:35 HEPATIC FUNCTION+C.LAB.BRZ ordered. EDMS EDMS 06:35 05:35 URINE DRUG SCREEN+UC.LAB.BRZ ordered. EDMS EDMS 06:36 05:35 CBC+H.LAB.BRZ ordered. EDMS EDMS 06:36 05:35 ETHANOL+C.LAB.BRZ ordered. EDMS EDMS 06:36 05:35 PROTIME (+INR)+COAG.LAB.BRZ ordered. EDMS EDMS 06:36 05:35 PTT, ACTIVATED+COAG.LAB.BRZ ordered. EDMS EDMS 06:36 05:35 SALICYLATE+C.LAB.BRZ ordered. EDMS EDMS
--- NOTE | 2022-04-28 07:19 | RAD REPORT ---
EXAM DESCRIPTION: CT - Head Brain Wo Cont - 04/28/2022 6:39 am CLINICAL HISTORY: Head trauma COMPARISON: [facility] Protocol dated 03/10/2020Head Brain Wo Cont dated 04/27/2022; Head Brain Wo Cont mainor ed 07/07/2021 TECHNIQUE: All CT scans are performed using dose optimization technique as appropriate and may inclu de automated exposure control or mA/KV adjustment according to patient size. FINDINGS: No intracranial hemorrhage, hydrocephalus or extra-axial fluid collection.No areas of brai n edema or evidence of midline shift. Opacified right maxillary sinus. The calvarium is intact. Remote nasal bone fractures. IMPRESSION: No acute intracranial abnormality.
[2022-04-28 07:33] VITALS: TEMP 97.7
[2022-04-28 07:35] VITALS: BP 160/90; O2SAT 100
== END 2022-04-28 07:26 | disposition home or self-care (01) ==
LOC: ER 05:17
DX: S01.81XA Laceration without foreign body of other part of head, initial encounter (principal); R29.6 Repeated falls; F55.8 Abuse of other non-psychoactive substances; T40.695A Adverse effect of other narcotics, initial encounter; I10 Essential (primary) hypertension; Z88.2 Allergy status to sulfonamides
CPT/HCPCS: 70450; 99284